=== PATIENT | male | born 1930 | race Caucasian/White ===

== ENCOUNTER 2019-01-15 16:34 | Inpatient (IN) | payer MEDICARE ==
[2019-01-15] MEDS ORDERED: SODIUM CHLORIDE 0.9% 1,000 ML IV STA ×3 (16:52→20:52)
[2019-01-15] MEDS ORDERED: SODIUM CHLORIDE 0.9% 500 ML 500 ML IV STA ×2 (16:52→20:52)
--- NOTE | 2019-01-15 16:53 | ED ---
Weakness HPI - General Chief complaint: Recheck/Abnormal Lab/Rx Stated complaint: hypotension Source: EMS, RN notes reviewed, old records reviewed Mode of arrival: EMS Limitations: altered mental status - History of Present Illness Initial comments: This is an 88-year-old male the ER for evaluation today is presenting for evaluation of decreased responsiveness weakness. Patient sent in by primary care for evaluation. Patient has complex and complicated recent medical history with severe deterioration. Patient is recently released from [facility] for rehabilitation. Patient also had recent significant inpatient hospitalization where he was also found to have urinary tract infection, hospitalization with extensive. Patient's poor historian history obtained from daughter and granddaughter who is at bedside MD Complaint: generalized weakness, lack of energy, difficulty walking -: days(s) Location: generalized Severity: severe Severity scale (1-10): 8 Quality: aching Consistency: constant Improves with: none Worsens with: none Context: new medication, recent illness, history of similar Associated Symptoms: confusion, nausea/vomiting - Related Data Home Medications Medication Instructions Recorded Confirmed Acetaminophen Tab [Tylenol Tab] 650 mg PO Q6H PRN 01/15/19 01/15/19 Atorvastatin [Lipitor] 40 mg PO HS 01/15/19 01/15/19 Lisinopril 20 mg PO DAILY 01/15/19 01/15/19 Magnesium Hydroxide [Milk of 2,400 mg PO HS PRN 01/15/19 01/15/19 Magnesia] Pantoprazole Sodium [Protonix] 40 mg PO DAILY 01/15/19 01/15/19 Pro-Stat Awc Liquid 30 ml PO BID 01/15/19 01/15/19 QUEtiapine [SEROquel] 25 mg PO HS 01/15/19 01/15/19 Tamsulosin [Flomax] 0.4 mg PO HS 01/15/19 01/15/19 amLODIPine [Norvasc] 5 mg PO DAILY 01/15/19 01/15/19 glipiZIDE [Glucotrol] 2.5 mg PO DAILY 01/15/19 01/15/19 Allergies Allergy/AdvReac Type Severity Reaction Status Date / Time No Known Allergies Allergy Verified 01/15/19 17:18 Review of Systems ROS Statement: Those systems with pertinent positive or pertinent negative responses have been documented in the HPI. ROS Other: All systems not noted in ROS Statement are negative. Past Medical History Past Medical History: Cancer, Diabetes Mellitus, Hyperlipidemia, Hypertension, Memory Impairment, Neurologic Disorder, Osteoarthritis (OA), Prostate Disorder Additional Past Medical History / Comment(s): brain cancer, hallucinations, heart murmur History of Any Multi-Drug Resistant Organisms: None Reported Past Surgical History: Orthopedic Surgery Additional Past Surgical History / Comment(s): right hip, left femur, face lift, Past Psychological History: No Psychological Hx Reported Smoking Status: Former smoker Past Alcohol Use History: None Reported Past Drug Use History: None Reported General Exam - General Exam Comments Initial Comments: Patient has bedsore that he didn't present with today. Limitations: altered mental status General appearance: alert, in no apparent distress Head exam: Present: atraumatic, normocephalic, normal inspection Eye exam: Present: normal appearance, PERRL, EOMI. Absent: scleral icterus, conjunctival injection, periorbital swelling ENT exam: Present: normal exam, mucous membranes moist Neck exam: Present: normal inspection. Absent: tenderness, meningismus, lymphadenopathy Respiratory exam: Present: normal lung sounds bilaterally. Absent: respiratory distress, wheezes, rales, rhonchi, stridor Cardiovascular Exam: Present: regular rate, normal rhythm, normal heart sounds. Absent: systolic murmur, diastolic murmur, rubs, gallop, clicks GI/Abdominal exam: Present: soft, normal bowel sounds. Absent: distended, tenderness, guarding, rebound, rigid Extremities exam: Present: normal inspection, full ROM, normal capillary refill, other (Lower great toe mild cellulitis likely gangrene). Absent: tenderness, pedal edema, joint swelling, calf tenderness Back exam: Present: normal inspection Neurological exam: Present: alert, oriented X3, CN II-XII intact Psychiatric exam: Present: normal affect, normal mood Skin exam: Present: warm, dry, intact, normal color. Absent: rash Course Vital Signs 01/15/19 01/15/19 01/15/19 16:43 17:35 19:00 Temperature 97.4 F L Pulse Rate 90 91 92 Respiratory 18 18 18 Rate Blood Pressure 93/74 119/40 93/38 O2 Sat by Pulse 100 97 97 Oximetry - Reevaluation(s) Reevaluation #1: 01/15/19 20:25 Medical records are reviewed, medical records requested from both [facility] as well as metal lodged Reevaluation #2: 01/15/19 20:25 Spoke with family that is at bedside, questions are answered. Patient is charlie wing improvement with hydration Reevaluation #3: 01/15/19 20:[address] of brain showing meningiomas on operable EKG Findings - EKG Comments: EKG Findings:: EKG shows sinus rhythm rate of 89, TN 160, QRS 160, QTc 450 Medical Decision Making - Medical Decision Making 88 male the ER for evaluation. Patient does say for evaluation regards to altered mental status, patient recently diagnosed urinary tract infection, patient also with diarrhea, family concerned for C. diff. Patient recently discharged [facility]. At this point we will await family member for further evaluation. And further history taking. EMS does provide history. Patient be admitted for significant IV antibiotics, patient is recent inpatient hospitalization likely bacteremia. - Lab Data Result diagrams: 01/15/19 16:45 01/15/19 16:45 Lab Results 01/15/19 01/15/19 01/15/19 Range/Units 16:45 16:45 16:45 WBC 19.9 H (3.8-10.6) k/uL RBC 2.74 L (4.30-5.90) m/uL Hgb 8.0 L (13.0-17.5) gm/dL Hct 24.4 L (39.0-53.0) % MCV 89.0 (80.0-100.0) fL MCH 29.3 (25.0-35.0) pg MCHC 32.9 (31.0-37.0) g/dL RDW 17.0 H (11.5-15.5) % Plt Count 280 (150-450) k/uL Neutrophils % 81 % Lymphocytes % 13 % Monocytes % 4 % Eosinophils % 0 % Basophils % 1 % Neutrophils # 16.2 H (1.3-7.7) k/uL Lymphocytes # 2.6 (1.0-4.8) k/uL Monocytes # 0.8 (0-1.0) k/uL Eosinophils # 0.1 (0-0.7) k/uL Basophils # 0.1 (0-0.2) k/uL Hypochromasia Slight Poikilocytosis Slight Anisocytosis Slight PT 11.4 (9.0-12.0) sec INR 1.1 (<1.2) APTT 24.7 (22.0-30.0) sec Sodium 141 (137-145) mmol/L Potassium 5.5 H (3.5-5.1) mmol/L Chloride 110 H (98-107) mmol/L Carbon Dioxide 19 L (22-30) mmol/L Anion Gap 12 mmol/L BUN 71 H (9-20) mg/dL Creatinine 2.59 H (0.66-1.25) mg/dL Est GFR (CKD-EPI)AfAm 25 (>60 ml/min/1.73 sqM) Est GFR (CKD-EPI)NonAf 21 (>60 ml/min/1.73 sqM) Glucose 79 (74-99) mg/dL Plasma Lactic Acid Vik (0.7-2.0) mmol/L Calcium 8.8 (8.4-10.2) mg/dL Phosphorus 3.9 (2.5-4.5) mg/dL Magnesium 1.7 (1.6-2.3) mg/dL Total Bilirubin 0.6 (0.2-1.3) mg/dL AST 45 (17-59) U/L ALT 31 (21-72) U/L Alkaline Phosphatase 153 H (38-126) U/L Troponin I (0.000-0.034) ng/mL Total Protein 5.1 L (6.3-8.2) g/dL Albumin 2.6 L (3.5-5.0) g/dL Urine Color Urine Appearance (Clear) Urine pH (5.0-8.0) Ur Specific [place] (1.001-1.035) Urine Protein (Negative) Urine Glucose (UA) (Negative) Urine Ketones (Negative) Urine Blood (Negative) Urine Nitrite (Negative) Urine Bilirubin (Negative) Urine Urobilinogen (<2.0) mg/dL Ur Leukocyte Esterase (Negative) Urine RBC (0-5) /hpf Urine WBC (0-5) /hpf Hyaline Casts (0-2) /lpf Urine Mucus (None) /hpf 01/15/19 01/15/19 01/15/19 Range/Units 16:45 16:45 16:45 WBC (3.8-10.6) k/uL RBC (4.30-5.90) m/uL Hgb (13.0-17.5) gm/dL Hct (39.0-53.0) % MCV (80.0-100.0) fL MCH (25.0-35.0) pg MCHC (31.0-37.0) g/dL RDW (11.5-15.5) % Plt Count (150-450) k/uL Neutrophils % % Lymphocytes % % Monocytes % % Eosinophils % % Basophils % % Neutrophils # (1.3-7.7) k/uL Lymphocytes # (1.0-4.8) k/uL Monocytes # (0-1.0) k/uL Eosinophils # (0-0.7) k/uL Basophils # (0-0.2) k/uL Hypochromasia Poikilocytosis Anisocytosis PT (9.0-12.0) sec INR (<1.2) APTT (22.0-30.0) sec Sodium (137-145) mmol/L Potassium (3.5-5.1) mmol/L Chloride (98-107) mmol/L Carbon Dioxide (22-30) mmol/L Anion Gap mmol/L BUN (9-20) mg/dL Creatinine (0.66-1.25) mg/dL Est GFR (CKD-EPI)AfAm (>60 ml/min/1.73 sqM) Est GFR (CKD-EPI)NonAf (>60 ml/min/1.73 sqM) Glucose (74-99) mg/dL Plasma Lactic Acid Vik 5.1 H* (0.7-2.0) mmol/L Calcium (8.4-10.2) mg/dL Phosphorus (2.5-4.5) mg/dL Magnesium (1.6-2.3) mg/dL Total Bilirubin (0.2-1.3) mg/dL AST (17-59) U/L ALT (21-72) U/L Alkaline Phosphatase (38-126) U/L Troponin I 0.018 (0.000-0.034) ng/mL Total Protein (6.3-8.2) g/dL Albumin (3.5-5.0) g/dL Urine Color Yellow Urine Appearance Cloudy (Clear) Urine pH 5.0 (5.0-8.0) Ur Specific [place] 1.019 (1.001-1.035) Urine Protein 1+ H (Negative) Urine Glucose (UA) Negative (Negative) Urine Ketones Negative (Negative) Urine Blood Trace H (Negative) Urine Nitrite Negative (Negative) Urine Bilirubin Negative (Negative) Urine Urobilinogen <2.0 (<2.0) mg/dL Ur Leukocyte Esterase Moderate H (Negative) Urine RBC 15 H (0-5) /hpf Urine WBC 17 H (0-5) /hpf Hyaline Casts 12 H (0-2) /lpf Urine Mucus Rare H (None) /hpf - Radiology Data Radiology results: report reviewed (CT of the brain is unchanged from prior per family, chest x-rays negative,), image reviewed Critical Care Time Critical Care Time: Yes Total Critical Care Time: 31 Disposition Clinical Impression: Sepsis, UTI (urinary tract infection), ARF (acute renal failure) Narrative: r/o Bacteremia Disposition: ADMITTED IP TO THIS HOSP Condition: Serious Is patient prescribed a controlled substance at d/c from ED?: No Referrals: Haim Bellamy MD [Primary Care Provider] - 1-2 days
[2019-01-15 17:11] LABS: Anisocytosis Slight; Basophils # (A) 0.1 k/uL (0-0.2); Basophils % (A) 1 %; Eosinophils # (A) 0.1 k/uL (0-0.7); Eosinophils % (A) 0 %; HCT 24.4 % (39.0-53.0); Hypochromasia Slight; Lymphocytes # (A) 2.6 k/uL (1.0-4.8); Lymphocytes % (A) 13 %; MCH 29.3 pg (25.0-35.0); MCHC 32.9 g/dL (31.0-37.0); Mean Platelet Volume 7.5; Monocytes # (A) 0.8 k/uL (0-1.0); Monocytes % (A) 4 %; Neutrophils # (A) 16.2 k/uL (1.3-7.7); Neutrophils % (A) 81 %; Platelet Count 280 k/uL (150-450); Poikilocytosis Slight; RBC 2.74 m/uL (4.30-5.90); WBC 19.9 k/uL (3.8-10.6)
[2019-01-15 17:17] LABS: INR 1.1 (<1.2); Partial Thromboplastin Time 24.7 sec (22.0-30.0); Prothrombin Time 11.4 sec (9.0-12.0)
[2019-01-15 17:19] LABS: Appearance,Urine Cloudy (Clear); Bilirubin,Urine Negative (Negative); Blood,Urine Trace (Negative); Color,Urine Yellow; Glucose,Urine (UA) Negative (Negative); Hyaline Casts,Urine 12 /lpf (0-2); Ketones,Urine Negative (Negative); Leukocyte Esterase,Urine Moderate (Negative); Mucus,Urine Rare /hpf; Nitrite,Urine Negative (Negative); Protein,Urine 1+ (Negative); RBC,Urine 15 /hpf (0-5); Specific Gravity,Urine 1.019 (1.001-1.035); Urobilinogen,Urine <2.0 mg/dL (<2.0)
[2019-01-15 17:31] LABS: Albumin 2.6 g/dL (3.5-5.0); Calcium 8.8 mg/dL (8.4-10.2); Magnesium 1.7 mg/dL (1.6-2.3); Phosphorus 3.9 mg/dL (2.5-4.5); Potassium 5.5 mmol/L (3.5-5.1); Total Bilirubin 0.6 mg/dL (0.2-1.3); Total Protein 5.1 g/dL (6.3-8.2)
--- NOTE | 2019-01-15 18:49 | CT ---
EXAMINATION TYPE: CT brain wo con DATE OF EXAM: 01/15/2019 COMPARISON: None HISTORY: Weakness and hypotension. CT DLP: 1129.4 mGycm Automated exposure control for dose reduction was used. FINDINGS: There is a suprasellar mass in the midline and towards the left side that measures 12 x 11 x 32 mm. T his has relatively high attenuation. There is very slight effacement of the third ventricle. There is mild enlargement of the ventricles. There is hypodensity in the parietal and occipital lobe white ma tter. There is cerebral cortical atrophy. There is no evidence of intracranial hemorrhage. The calvar ium is intact. IMPRESSION: LARGE ELONGATED MASS IN THE LEFT SUPRASELLAR REGION. 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 CONTRAST CT SCAN WOULD BE HELPFUL FOR FURTHER EVALUATION. CEREBRAL ATROPHY AND CHRONIC SMALL VESSEL ISCHEMIA.
--- NOTE | 2019-01-15 18:51 | XR ---
EXAMINATION TYPE: XR chest 2V DATE OF EXAM: 01/15/2019 COMPARISON: NONE HISTORY: Weakness TECHNIQUE: Frontal and lateral views of the chest are obtained. FINDINGS: Heart is normal. Lungs are clear of infiltrate. Thoracic aorta is atheromatous. There is n o pleural effusion. There is no heart failure. There is osteopenia. There is slight anterior wedging of one mid thoracic vertebra. IMPRESSION: No active cardiopulmonary disease. Normal heart.
[2019-01-15] MEDS ORDERED: VANCOMYCIN IV PER PHARMACY 1 EACH MISC MISCELLANE PRN (20:22)
[2019-01-15] MEDS ORDERED: VANCOMYCIN 1,250 MG in SODIUM CHLORIDE 0.9% 250 ML IVPB STA (20:28)
[2019-01-15] MEDS ORDERED: SODIUM CHLORIDE 0.9% 50 ML with HYDROCORTISONE SUCCINATE 500 MG IVPB SCH ×2 (20:30)
[2019-01-15] MEDS ORDERED: LACTATED RINGERS 1,000 ML IV SCH (20:30)
[2019-01-15] MEDS: SODIUM CHLORIDE 0.9% 500 ML 500 ML IV SCH (21:17)
--- NOTE | 2019-01-15 23:24 | ED ---
Medical Decision Making - Medical Decision Making Admitting physician Dr. Gaines asking if central line could be placed for hypotension. Patient was admitted to [facility] (formerly [facility]3] and is currently being transferred to an ICU admission. Blood pressure was in the 70 systolic. I placed a right IJ central line triple-lumen. - Lab Data Result diagrams: 01/15/19 16:45 01/15/19 16:45 Lab Results 01/15/19 01/15/19 01/15/19 Range/Units 16:45 16:45 16:45 WBC 19.9 H (3.8-10.6) k/uL RBC 2.74 L (4.30-5.90) m/uL Hgb 8.0 L (13.0-17.5) gm/dL Hct 24.4 L (39.0-53.0) % MCV 89.0 (80.0-100.0) fL MCH 29.3 (25.0-35.0) pg MCHC 32.9 (31.0-37.0) g/dL RDW 17.0 H (11.5-15.5) % Plt Count 280 (150-450) k/uL Neutrophils % 81 % Lymphocytes % 13 % Monocytes % 4 % Eosinophils % 0 % Basophils % 1 % Neutrophils # 16.2 H (1.3-7.7) k/uL Lymphocytes # 2.6 (1.0-4.8) k/uL Monocytes # 0.8 (0-1.0) k/uL Eosinophils # 0.1 (0-0.7) k/uL Basophils # 0.1 (0-0.2) k/uL Hypochromasia Slight Poikilocytosis Slight Anisocytosis Slight PT 11.4 (9.0-12.0) sec INR 1.1 (<1.2) APTT 24.7 (22.0-30.0) sec Sodium 141 (137-145) mmol/L Potassium 5.5 H (3.5-5.1) mmol/L Chloride 110 H (98-107) mmol/L Carbon Dioxide 19 L (22-30) mmol/L Anion Gap 12 mmol/L BUN 71 H (9-20) mg/dL Creatinine 2.59 H (0.66-1.25) mg/dL Est GFR (CKD-EPI)AfAm 25 (>60 ml/min/1.73 sqM) Est GFR (CKD-EPI)NonAf 21 (>60 ml/min/1.73 sqM) Glucose 79 (74-99) mg/dL Lactic Ac Sepsis Rflx Plasma Lactic Acid Vik (0.7-2.0) mmol/L Calcium 8.8 (8.4-10.2) mg/dL Phosphorus 3.9 (2.5-4.5) mg/dL Magnesium 1.7 (1.6-2.3) mg/dL Total Bilirubin 0.6 (0.2-1.3) mg/dL AST 45 (17-59) U/L ALT 31 (21-72) U/L Alkaline Phosphatase 153 H (38-126) U/L Troponin I (0.000-0.034) ng/mL Total Protein 5.1 L (6.3-8.2) g/dL Albumin 2.6 L (3.5-5.0) g/dL Urine Color Urine Appearance (Clear) Urine pH (5.0-8.0) Ur Specific [place] (1.001-1.035) Urine Protein (Negative) Urine Glucose (UA) (Negative) Urine Ketones (Negative) Urine Blood (Negative) Urine Nitrite (Negative) Urine Bilirubin (Negative) Urine Urobilinogen (<2.0) mg/dL Ur Leukocyte Esterase (Negative) Urine RBC (0-5) /hpf Urine WBC (0-5) /hpf Hyaline Casts (0-2) /lpf Urine Mucus (None) /hpf 01/15/19 01/15/19 01/15/19 Range/Units 16:45 16:45 16:45 WBC (3.8-10.6) k/uL RBC (4.30-5.90) m/uL Hgb (13.0-17.5) gm/dL Hct (39.0-53.0) % MCV (80.0-100.0) fL MCH (25.0-35.0) pg MCHC (31.0-37.0) g/dL RDW (11.5-15.5) % Plt Count (150-450) k/uL Neutrophils % % Lymphocytes % % Monocytes % % Eosinophils % % Basophils % % Neutrophils # (1.3-7.7) k/uL Lymphocytes # (1.0-4.8) k/uL Monocytes # (0-1.0) k/uL Eosinophils # (0-0.7) k/uL Basophils # (0-0.2) k/uL Hypochromasia Poikilocytosis Anisocytosis PT (9.0-12.0) sec INR (<1.2) APTT (22.0-30.0) sec Sodium (137-145) mmol/L Potassium (3.5-5.1) mmol/L Chloride (98-107) mmol/L Carbon Dioxide (22-30) mmol/L Anion Gap mmol/L BUN (9-20) mg/dL Creatinine (0.66-1.25) mg/dL Est GFR (CKD-EPI)AfAm (>60 ml/min/1.73 sqM) Est GFR (CKD-EPI)NonAf (>60 ml/min/1.73 sqM) Glucose (74-99) mg/dL Lactic Ac Sepsis Rflx Plasma Lactic Acid Vik 5.1 H* (0.7-2.0) mmol/L Calcium (8.4-10.2) mg/dL Phosphorus (2.5-4.5) mg/dL Magnesium (1.6-2.3) mg/dL Total Bilirubin (0.2-1.3) mg/dL AST (17-59) U/L ALT (21-72) U/L Alkaline Phosphatase (38-126) U/L Troponin I 0.018 (0.000-0.034) ng/mL Total Protein (6.3-8.2) g/dL Albumin (3.5-5.0) g/dL Urine Color Yellow Urine Appearance Cloudy (Clear) Urine pH 5.0 (5.0-8.0) Ur Specific [place] 1.019 (1.001-1.035) Urine Protein 1+ H (Negative) Urine Glucose (UA) Negative (Negative) Urine Ketones Negative (Negative) Urine Blood Trace H (Negative) Urine Nitrite Negative (Negative) Urine Bilirubin Negative (Negative) Urine Urobilinogen <2.0 (<2.0) mg/dL Ur Leukocyte Esterase Moderate H (Negative) Urine RBC 15 H (0-5) /hpf Urine WBC 17 H (0-5) /hpf Hyaline Casts 12 H (0-2) /lpf Urine Mucus Rare H (None) /hpf 05/21/19 05/21/19 Range/Units 17:41 21:22 WBC (3.8-10.6) k/uL RBC (4.30-5.90) m/uL Hgb (13.0-17.5) gm/dL Hct (39.0-53.0) % MCV (80.0-100.0) fL MCH (25.0-35.0) pg MCHC (31.0-37.0) g/dL RDW (11.5-15.5) % Plt Count (150-450) k/uL Neutrophils % % Lymphocytes % % Monocytes % % Eosinophils % % Basophils % % Neutrophils # (1.3-7.7) k/uL Lymphocytes # (1.0-4.8) k/uL Monocytes # (0-1.0) k/uL Eosinophils # (0-0.7) k/uL Basophils # (0-0.2) k/uL Hypochromasia Poikilocytosis Anisocytosis PT (9.0-12.0) sec INR (<1.2) APTT (22.0-30.0) sec Sodium (137-145) mmol/L Potassium (3.5-5.1) mmol/L Chloride (98-107) mmol/L Carbon Dioxide (22-30) mmol/L Anion Gap mmol/L BUN (9-20) mg/dL Creatinine (0.66-1.25) mg/dL Est GFR (CKD-EPI)AfAm (>60 ml/min/1.73 sqM) Est GFR (CKD-EPI)NonAf (>60 ml/min/1.73 sqM) Glucose (74-99) mg/dL Lactic Ac Sepsis Rflx Y Plasma Lactic Acid Vik 2.2 H* (0.7-2.0) mmol/L Calcium (8.4-10.2) mg/dL Phosphorus (2.5-4.5) mg/dL Magnesium (1.6-2.3) mg/dL Total Bilirubin (0.2-1.3) mg/dL AST (17-59) U/L ALT (21-72) U/L Alkaline Phosphatase (38-126) U/L Troponin I (0.000-0.034) ng/mL Total Protein (6.3-8.2) g/dL Albumin (3.5-5.0) g/dL Urine Color Urine Appearance (Clear) Urine pH (5.0-8.0) Ur Specific [place] (1.001-1.035) Urine Protein (Negative) Urine Glucose (UA) (Negative) Urine Ketones (Negative) Urine Blood (Negative) Urine Nitrite (Negative) Urine Bilirubin (Negative) Urine Urobilinogen (<2.0) mg/dL Ur Leukocyte Esterase (Negative) Urine RBC (0-5) /hpf Urine WBC (0-5) /hpf Hyaline Casts (0-2) /lpf Urine Mucus (None) /hpf Disposition Clinical Impression: Sepsis, UTI (urinary tract infection), ARF (acute renal failure) Disposition: ADMITTED IP TO THIS [facility] Condition: Serious Procedures - Central Line Placement Right IJ Consent Obtained: emergent situation Patient Placed on Monitor/Pulse Ox: Yes Prep: mask, gown, gloves Central Line Prep: Chlorhexidine scrub Local Anesthesia Used: Lidocaine 1% Amount of Anesthesia Used (mls): 3 Ultrasound Used for Placement: Yes Central Line Lumen Inserted: triple Bloods Obtained for Lab: Yes Central Line Position: good blood return, all ports aspirated, flushed, capped, sutured in place with nylon Dressing Applied: Tegaderm Post Procedure X-Ray: tip of catheter in good position Patient Tolerated Procedure: well Complications: none
--- NOTE | 2019-01-15 23:35 | XR ---
EXAM: XR Chest, 1 View CLINICAL HISTORY: Central line placement TECHNIQUE: Frontal view of the chest. COMPARISON: No relevant prior studies available. FINDINGS: Lungs: Airspace opacities seen within the latrice, left greater than right. Pleural space: Unremarkable. No pneumothorax. Heart: Unremarkable. No cardiomegaly. Mediastinum: Unremarkable. Bones/joints: Unremarkable. Tubes, lines and devices: Right IJ central venous catheter with tip in the right atrium. Consider retraction by 3 cm. IMPRESSION: 1. Right IJ central venous catheter with tip in the right atrium. Consider retraction by 3 cm. 2. Airspace opacities seen within the latrice, left greater than right.
[2019-01-15] MEDS ORDERED: SODIUM POLYSTYRENE SULFONATE 15 GM/60 ML BOTTLE PO STA (23:55)
[2019-01-15] MEDS ORDERED: CALCIUM GLUCONATE 1 GM in SODIUM CHLORIDE 0.9% 100 ML IVPB ONE (23:59)
--- NOTE | 2019-01-16 00:21 | P.HPIM ---
History of Present Illness H&P Date: 01/15/19 The patient is an 88 yo M with a PMH of HTN, HLD, DM, brain tumor (dx 2014), and dementia who was sent to the ED from the PMD's office due to lethargy and decreased responsiveness. History obtained from grand-daughter (Laure Martinez [phone]) who is the patient's legal guardian. 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 He was hospitalized for 8 days and was discharged to [facility] for rehabilitation where he spent 6 weeks. During his stay, as per the grand- daughter, the patient developed bed-sores and had a power inserted after which he developed a UTI. He was thereby prescribed Bactrim 5 days ago and was discharged from [facility] on 01/14/19. Upon arriving at home, his granddaughter noted that the patient was less responsive and weak and had developed diarrhea. She subsequently took him to his PMD's office from where he was referred to the ED. The patient seen in the ED. He is answering basic questions though is a very poor historian. He is denying any complaints. He was noted to have BP 93/74 on admission w/ pulse 90, SpO2 98% on RA, and afebrile at 97.4 degrees. He underwent an extensive evaluation in the ED w/ WBC count 19.9, Hgb 8, lactic acid 5.1, K 5.5, CO2 19, Cr 2.59, UA consistent w/ infection, Troponin 0.018, and alk phos 153. CT Head revealed a supracellar mass, very likely a meningioma; CXR unremarkable; w/ EKG showing sinus rhythm with ILBB and sinus arrhythmia. A R IJ central line and the patient is being admitted to the medicine ICU for further management. Review of Systems Pertinent positives and negatives as discussed in HPI, a complete review of systems was performed and all other systems are negative. Past Medical History Past Medical History: Cancer, Diabetes Mellitus, Hyperlipidemia, Hypertension, Memory Impairment, Neurologic Disorder, Osteoarthritis (OA), Prostate Disorder Additional Past Medical History / Comment(s): brain cancer, hallucinations, heart murmur History of Any Multi-Drug Resistant Organisms: None Reported Past Surgical History: Orthopedic Surgery Additional Past Surgical History / Comment(s): right hip, left femur, face lift, Past Psychological History: No Psychological Hx Reported Smoking Status: Former smoker Past Alcohol Use History: None Reported Past Drug Use History: None Reported Medications and Allergies Home Medications Medication Instructions Recorded Confirmed Type Acetaminophen Tab [Tylenol Tab] 650 mg PO Q6H PRN 01/15/19 01/15/19 History Atorvastatin [Lipitor] 40 mg PO HS 01/15/19 01/15/19 History Lisinopril 20 mg PO DAILY 01/15/19 01/15/19 History Magnesium Hydroxide [Milk of 2,400 mg PO HS PRN 01/15/19 01/15/19 History Magnesia] Pantoprazole Sodium [Protonix] 40 mg PO DAILY 01/15/19 01/15/19 History Pro-Stat Awc Liquid 30 ml PO BID 01/15/19 01/15/19 History QUEtiapine [SEROquel] 25 mg PO HS 01/15/19 01/15/19 History Tamsulosin [Flomax] 0.4 mg PO HS 01/15/19 01/15/19 History amLODIPine [Norvasc] 5 mg PO DAILY 01/15/19 01/15/19 History glipiZIDE [Glucotrol] 2.5 mg PO DAILY 01/15/19 01/15/19 History Allergies Allergy/AdvReac Type Severity Reaction Status Date / Time No Known Allergies Allergy Verified 01/15/19 17:18 Physical Exam Vitals: Vital Signs Temp Pulse Resp BP Pulse Ox 01/15/19 22:22 87/33 01/15/19 21:37 84 18 89/42 98 01/15/19 19:00 92 18 93/38 97 01/15/19 17:35 91 18 119/40 97 01/15/19 16:43 97.4 F L 90 18 93/74 100 Intake and Output 01/15/19 01/15/19 01/16/19 14:59 22:59 06:59 Other: Weight 72.121 kg General: elderly ill appearing M, no distress, appears at stated age, normal weight Derm: L great toe likely gangrene, warm, dry Head: atraumatic, normocephalic, symmetric Eyes: EOMI, no lid lag, anicteric sclera, pupils equal round reactive to light ENT: Nose and ears atraumatic, no thrush, no pharyngeal erythema Neck: No thyromegaly, no cervical lymphadenopathy, trachea midline, supple Mouth: no lip lesion, mucus membranes moist Cardiovascular: S1S2 reg, systolic murmur, positive posterior tibial pulse bila teral, no edema, capillary refill less than 2 seconds Lungs: CTA bilateral, no rhonchi, no rales , no accessory muscle use Abdominal: soft, nontender to palpation, no guarding, no appreciable organom egaly, normal bowel sounds Ext: no gross muscle atrophy, muscle strength 3 out of 5 in all 4 extremities grossly, no contractures, Neuro: Not following all commands, examination limited Psych: Awake, not oriented to self, place, or time Results CBC & Chem 7: 01/15/19 16:45 01/15/19 16:45 Labs: Abnormal Lab Results - Last 24 Hours (Table) 01/15/19 01/15/19 01/15/19 Range/Units 16:45 16:45 16:45 WBC 19.9 H (3.8-10.6) k/uL RBC 2.74 L (4.30-5.90) m/uL Hgb 8.0 L (13.0-17.5) gm/dL Hct 24.4 L (39.0-53.0) % RDW 17.0 H (11.5-15.5) % Neutrophils # 16.2 H (1.3-7.7) k/uL Potassium 5.5 H (3.5-5.1) mmol/L Chloride 110 H (98-107) mmol/L Carbon Dioxide 19 L (22-30) mmol/L BUN 71 H (9-20) mg/dL Creatinine 2.59 H (0.66-1.25) mg/dL Plasma Lactic Acid Vik 5.1 H* (0.7-2.0) mmol/L Alkaline Phosphatase 153 H (38-126) U/L Total Protein 5.1 L (6.3-8.2) g/dL Albumin 2.6 L (3.5-5.0) g/dL Urine Protein (Negative) Urine Blood (Negative) Ur Leukocyte Esterase (Negative) Urine RBC (0-5) /hpf Urine WBC (0-5) /hpf Hyaline Casts (0-2) /lpf Urine Mucus (None) /hpf 01/15/19 01/15/19 Range/Units 16:45 21:22 WBC (3.8-10.6) k/uL RBC (4.30-5.90) m/uL Hgb (13.0-17.5) gm/dL Hct (39.0-53.0) % RDW (11.5-15.5) % Neutrophils # (1.3-7.7) k/uL Potassium (3.5-5.1) mmol/L Chloride (98-107) mmol/L Carbon Dioxide (22-30) mmol/L BUN (9-20) mg/dL Creatinine (0.66-1.25) mg/dL Plasma Lactic Acid Vik 2.2 H* (0.7-2.0) mmol/L Alkaline Phosphatase (38-126) U/L Total Protein (6.3-8.2) g/dL Albumin (3.5-5.0) g/dL Urine Protein 1+ H (Negative) Urine Blood Trace H (Negative) Ur Leukocyte Esterase Moderate H (Negative) Urine RBC 15 H (0-5) /hpf Urine WBC 17 H (0-5) /hpf Hyaline Casts 12 H (0-2) /lpf Urine Mucus Rare H (None) /hpf Assessment and Plan Plan: Severe sepsis secondary to UTI vs C. diff -S/p 4 L NS, c/w 100 cc/hr -Lactic acid improved -C/w Vancomycin and Zosyn -F/u blood and urine cultures -F/u C diff testing MACO vs CKD -Monitor BMP Metabolic acidosis, in setting of severe sepsis -Monitor for now -C/w above treatment Hyperkalemia -S/p Kayexalate and Calcium gluconate -Monitor BMP Brain tumor (possible meningioma -- guardian states she was told it was a slow growing tumor) -Patient evaluated by Neurosurgeons at [facility] as per guardian. She reports that they are planning on putting a FORESTRY AIDE-shunt for hydrocephalus -Dx 4 years ago -Obtain records Normocytic anemia -Will monitor for now HTN -Hold antihypertensives in setting of septic shock Diabetes Mellitus -DEMOND with Blood glucose monitoring HLD -Resume home meds DVT prophylaxis -Lovenox The patient is admitted with an anticipated greater than 2 midnight stay for evaluation of severe sepsis. CODE STATUS:Full Code Discussed with: Patient's granddaughter, patient's brother Anticipated discharge date: 01/20/[address]: Home A total of 60 minutes was spent on the care of this complex patient more than 50% of the time was spent in counseling and care coordination.
[2019-01-16 00:25] LABS: Glucose,Whole Blood 71 mg/dL (75-99)
[2019-01-16] MEDS ORDERED: NALOXONE 0.4 MG/ML 1 ML VIAL IV PRN (00:54)
[2019-01-16] MEDS: NOREPINEPHRINE 4 MG in SODIUM CHLORIDE 0.9% 250 ML IV SCH ×3 (01:10→20:32)
[2019-01-16] MEDS: PIPERACILLIN-TAZOBACTAM 3.375 GM in SODIUM CHLORIDE 0.9% 100 ML IVPB SCH ×3 (02:54→21:55)
[2019-01-16 03:23] LABS: Glucose,Whole Blood 76 mg/dL (75-99)
[2019-01-16 04:18] LABS: Albumin 2.2 g/dL (3.5-5.0); Magnesium 1.5 mg/dL (1.6-2.3); Phosphorus 3.2 mg/dL (2.5-4.5); Potassium 4.7 mmol/L (3.5-5.1); Total Bilirubin 0.3 mg/dL (0.2-1.3); Total Protein 4.6 g/dL (6.3-8.2)
[2019-01-16 04:23] LABS: Anisocytosis Slight; Basophils # (A) 0.1 k/uL (0-0.2); Basophils % (A) 1 %; Eosinophils # (A) 0.1 k/uL (0-0.7); Eosinophils % (A) 1 %; HCT 21.1 % (39.0-53.0); Hypochromasia Slight; Lymphocytes # (A) 1.7 k/uL (1.0-4.8); Lymphocytes % (A) 13 %; MCH 29.9 pg (25.0-35.0); MCV 90.5 fL (80.0-100.0); Mean Platelet Volume 7.5; Monocytes # (A) 0.6 k/uL (0-1.0); Monocytes % (A) 5 %; Neutrophils # (A) 10.6 k/uL (1.3-7.7); Neutrophils % (A) 80 %; Platelet Count 209 k/uL (150-450); Poikilocytosis Slight; RBC 2.33 m/uL (4.30-5.90); WBC 13.3 k/uL (3.8-10.6)
[2019-01-16 05:03] LABS: Glucose,Whole Blood 75 mg/dL (75-99)
[2019-01-16] MEDS: INSULIN ASPART (NovoLOG) 100 UNIT/ML VIAL SQ SCH ×4 (07:27→21:39)
[2019-01-16 07:29] LABS: Glucose,Whole Blood 80 mg/dL (75-99)
[2019-01-16] MEDS ORDERED: ENOXAPARIN 40 MG/0.4 ML SYRINGE SQ SCH (09:00)
--- NOTE | 2019-01-16 10:07 | P.NPCON ---
History of Present Illness - Reason for Consult acute renal failure - History of Present Illness Reason for consultation: Acute kidney injury History of present illness: Patient is a 88-year-old male seen in renal consultation for acute kidney injury. Patient's creatinine on admission was 2.59 and is down to 1.86 today. Unclear as to what his baseline renal function is. Patient was noted to be quite hypotensive on admission with systolic blood pressure in the 70s to 80s. Patient received nearly 5 L of IV fluids and is now maintained on a sodium bicarbonate drip. He is nonoliguric. Patient has history of dementia and is not a reliable historian. He is also noted to have a left sided brain mass with concern for meningioma. Patient was brought from an extended care facility due to generalized weakness. Patient was recently treated for UTI and had a prolonged hospitalization during that time. He's been getting progressively weaker and also difficulty walking and was subsequently brought to the hospital. Cultures have been negative so far. He is currently on 0.1 g a kilogram of Levophed. He has history of diabetes mellitus. Vital signs are stable. Currently on Levophed. General: The patient appeared well nourished and normally developed. HEENT: Head exam is unremarkable. Neck is without jugular venous distension. LUNGS: Breath sounds decreased. HEART: Rate and Rhythm are regular. First and second heart sounds normal. No murmurs, rubs or gallops. ABDOMEN: Abdominal exam reveals normal bowel sounds. Non-tender and non- distended. EXTREMITITES: No clubbing, cyanosis, or edema. Past Medical History Past Medical History: Cancer, Diabetes Mellitus, Hyperlipidemia, Hypertension, Memory Impairment, Neurologic Disorder, Osteoarthritis (OA), Prostate Disorder Additional Past Medical History / Comment(s): brain tumor, hallucinations, heart murmur History of Any Multi-Drug Resistant Organisms: None Reported Past Surgical History: Orthopedic Surgery Additional Past Surgical History / Comment(s): right hip, left femur, face lift, Past Anesthesia/Blood Transfusion Reactions: No Reported Reaction Past Psychological History: Anxiety Additional Psychological History / Comment(s): Paranoia. Halluncinations Smoking Status: Former smoker Past Alcohol Use History: None Reported Past Drug Use History: None Reported Medications and Allergies Home Medications Medication Instructions Recorded Confirmed Type Acetaminophen Tab [Tylenol Tab] 650 mg PO Q6H PRN 01/15/19 01/15/19 History Atorvastatin [Lipitor] 40 mg PO HS 01/15/19 01/15/19 History Lisinopril 20 mg PO DAILY 01/15/19 01/15/19 History Magnesium Hydroxide [Milk of 2,400 mg PO HS PRN 01/15/19 01/15/19 History Magnesia] Pantoprazole Sodium [Protonix] 40 mg PO DAILY 01/15/19 01/15/19 History Pro-Stat Awc Liquid 30 ml PO BID 01/15/19 01/15/19 History QUEtiapine [SEROquel] 25 mg PO HS 01/15/19 01/15/19 History Tamsulosin [Flomax] 0.4 mg PO HS 01/15/19 01/15/19 History amLODIPine [Norvasc] 5 mg PO DAILY 01/15/19 01/15/19 History glipiZIDE [Glucotrol] 2.5 mg PO DAILY 01/15/19 01/15/19 History Allergies Allergy/AdvReac Type Severity Reaction Status Date / Time No Known Allergies Allergy Verified 01/15/19 17:18 Physical Exam Vitals: Vital Signs Temp Pulse Pulse Resp BP BP Pulse Ox 01/16/19 09:15 80 21 102/57 96 01/16/19 09:00 78 21 121/62 87 L 01/16/19 08:45 84 22 110/54 97 01/16/19 08:30 69 5 L 109/63 97 01/16/19 08:15 76 16 110/55 95 01/16/19 08:00 97.7 F 78 21 110/54 96 01/16/19 07:45 77 18 109/53 97 01/16/19 07:00 80 14 109/97 96 01/16/19 06:45 79 9 L 102/50 96 01/16/19 06:30 75 16 65/55 96 01/16/19 06:15 76 10 L 92/52 94 L 01/16/19 06:00 79 17 95/44 93 L 01/16/19 05:45 75 15 95/44 93 L 01/16/19 05:30 74 17 93/44 94 L 01/16/19 05:15 75 16 97/47 94 L 01/16/19 05:00 76 16 97/48 94 L 01/16/19 04:45 76 17 85/46 95 01/16/19 04:30 79 18 79/45 93 L 01/16/19 04:15 85 19 84/52 95 01/16/19 04:00 89 17 93/65 96 01/16/19 03:45 86 20 81/50 97 01/16/19 03:15 80 21 81/59 95 01/16/19 03:10 97.5 F L 83 20 81/59 97 01/16/19 03:00 80 18 85/44 96 01/16/19 02:30 86 10 L 94/74 97 01/16/19 02:00 84 12 93/64 96 01/16/19 01:30 75 17 92/61 96 01/16/19 01:00 76 12 93/41 98 01/16/19 00:57 77 17 82/55 95 01/16/19 00:50 76 33 H 79/53 95 01/16/19 00:40 77 16 72/40 95 01/16/19 00:30 78 26 H 76/43 95 01/16/19 00:20 96.9 F L 80 17 81/46 96 01/15/19 23:50 98 F 80 16 104/93 100 01/15/19 23:11 77 20 71/41 100 01/15/19 22:22 87/33 01/15/19 21:37 84 18 89/42 98 01/15/19 19:00 92 18 93/38 97 01/15/19 17:35 91 18 119/40 97 01/15/19 16:43 97.4 F L 90 18 93/74 100 Intake and Output 01/15/19 01/16/19 01/16/19 22:59 06:59 14:59 Intake Total 5136.893 30 Output Total 835 225 Balance 4301.893 -195 Intake: IV 20 30 0.9 20 30 Intake, IV Titration 4776.893 Amount Calcium Gluconate 1 gm In 100 Sodium Chloride 0.9% 100 ml @ 100 mls/hr IVPB ONCE ONE Rx#:[id number] Norepinephrine 4 mg In 76.893 Sodium Chloride 0.9% 250 ml @ 0.05 MCG/KG/MIN 13. 739 mls/hr IV .[id number] [facility] Rx#:[id number] Piperacillin-Tazobactam 3 100 .375 gm In Sodium Chloride 0.9% 100 ml @ 25 mls/hr IVPB Q12H [facility] Rx# :[id number] Sodium Chloride 0.9% 1, 1200 000 ml @ 150 mls/hr IV . Q6H40M [facility] Rx#:[id number] Sodium Chloride 0.9% 1, 1000 000 ml @ 999 mls/hr IV . Q1H1M [facility] Rx#:[id number] Sodium Chloride 0.9% 1, 1000 000 ml @ 999 mls/hr IV . Q1H1M [facility] Rx#:[id number] Sodium Chloride 0.9% 500 500 ml 500 ml @ 999 mls/hr IV .Q31M [facility] Rx#:[id number] Sodium Chloride 0.9% 500 500 ml 500 ml @ 999 mls/hr IV .Q31M [facility] Rx#:[id number] Vancomycin 1,250 mg In 250 Sodium Chloride 0.9% 250 ml @ 125 mls/hr IVPB ONCE ONE Rx#:[id number] cefTRIAXone 1 gm In 50 Sodium Chloride 0.9% 50 ml @ 100 mls/hr IVPB Q24H [facility] Rx#:[id number] Oral 340 Output: Urine 835 225 Other: Voiding Method Indwelling Catheter Weight 72.121 kg 72.12 kg Results - Lab Results Most recent lab results Calcium 8.0 mg/dL (8.4-10.2) L 01/16/19 03:43 Phosphorus 3.2 mg/dL (2.5-4.5) 01/16/19 03:43 Magnesium 1.5 mg/dL (1.6-2.3) L 01/16/19 03:43 01/16/19 03:43 01/16/19 03:43 Assessment and Plan Plan: Assessment: 1. Acute kidney injury mostly prerenal secondary to hypotension/septic shock. Creatinine was 2.59 on admission and is 1.86 today. Unknown baseline renal function. 2. Metabolic acidosis secondary to acute kidney injury and IV fluids. 3. Hyperkalemia secondary to acute kidney injury and metabolic acidosis. Raiza ent was also on lisinopril outpatient. 4. Diabetes mellitus. 5. Anemia. Rule out iron deficiency. No active bleeding. 6. Septic shock . Source likely being UTI. Currently on Levophed. 7. Left brain mass. Plan: Maintain isotonic sodium bicarbonate drip at 75 mL an hour. Follow-up cultures. Check iron studies. Hold antihypertensives. Continue to monitor renal function and urine output. Check renal uls. Thank you for the consultation. I will continue to follow patient with you during his hospital stay.
[2019-01-16] MEDS: DEXTROSE 5% IN WATER 1,000 ML with SODIUM BICARB (1 MEQ/ML) 150 ML IV SCH ×2 (10:21→17:14)
[2019-01-16] MEDS: BACITRACIN 500 UNIT/GM OINT 28.4 GM TUBE TOPICAL SCH ×2 (10:21→20:28)
[2019-01-16] MEDS: PANTOPRAZOLE 40 MG/10 ML VIAL IV SCH (10:21)
[2019-01-16] MEDS ORDERED: VANCOMYCIN 1,250 MG in SODIUM CHLORIDE 0.9% 250 ML IVPB ONE (12:00)
[2019-01-16 12:09] LABS: Glucose,Whole Blood 114 mg/dL (75-99)
[2019-01-16 12:22] LABS: Glucose,Whole Blood 106 mg/dL (75-99)
[2019-01-16 13:33] LABS: Calcium 8.1 mg/dL (8.4-10.2); Potassium 4.5 mmol/L (3.5-5.1)
--- NOTE | 2019-01-16 14:29 | US ---
EXAMINATION TYPE: US kidneys/renal and bladder DATE OF EXAM: 01/16/2019 COMPARISON: NONE CLINICAL HISTORY: maco. ICU, MACO, bladder cath EXAM MEASUREMENTS: Right Kidney: 11.1 x 5.4 x 5.6 cm Left Kidney: 9.8 x 4.5 x 5.8 cm Right Kidney: wnl Left Kidney: appears smaller in size compared to contralateral kidney Bladder: power visualized, wall - 1.1 cm Bilateral Jets seen: not visualized due to power Cortical medullary differentiation is maintained bilaterally. There is no hydronephrosis or pathologi c calcification. No evident cortical mass. IMPRESSION: Urinary bladder is catheterized. No hydronephrosis.
--- NOTE | 2019-01-16 14:44 | P.PN ---
Subjective Progress Note Date: 01/16/19 Principal diagnosis: lethargy Patient is an 88-year-old male past medical history of brain tumor, diabetes, dyslipidemia, hypertension, and dementia who was sent to the ER from Dr. Bellamy's office due to lethargy and decreased responsiveness. Patient was admitted to the [facility] in November 2018 for ataxia and fall and he was found to have a meningioma with hydrocephalus. He has recently been at [facility] where he spent 6 weeks for rehab. Apparently he developed bedsores and had a urinary tract infection, he had a Scott catheter which has si nce been discontinued, and he was discharged home on 01/14 with Bactrim. Granddaughter noticed that he was increasingly sleepy, weak, and developed diarrhea. She took him to Dr. Bellamy's office and subsequently here. In the ER he underwent an extensive evaluation. His don't have a low blood pressure of 93/74 on admission but his vital signs were otherwise stable. Initial laboratory analysis showed white blood cell count of 19.9, hemoglobin 8, lactic acid 5.1, potassium 5.5, CO2 19, and creatinine 2.59. UA showed possible infection is currently undergoing treatment. Head CT showed a suprasellar mass but no signs of hydrocephalus. Chest x-ray was unremarkable. Patient remained hypotensive despite IV fluid administration and subsequently a right IJ central line was placed. Patient was started on norepinephrine and has subsequently been admitted to the ICU. Patient seen and examined at bedside. He was acutely confused and alert to self only. No family present at bedside Per nursing norepinephrine requirements decreasing overnight. Patient confused but redirectable. Objective - Vital Signs Vital signs: Vital Signs Temp 97.5 F L 01/16/19 03:10 Pulse 80 01/16/19 07:00 Resp 14 01/16/19 07:00 BP 109/97 01/16/19 07:00 Pulse Ox 96 01/16/19 07:00 Intake & Output 01/15/19 01/16/19 01/16/19 18:59 06:59 18:59 Intake Total 5136.893 10 Output Total 835 Balance 4301.893 10 Weight 72.121 kg 72.12 kg Intake: IV 20 10 0.9 20 10 Intake, IV Titration 4776.893 Amount Calcium Gluconate 1 gm In 100 Sodium Chloride 0.9% 100 ml @ 100 mls/hr IVPB ONCE ONE Rx#:[id number] Norepinephrine 4 mg In 76.893 Sodium Chloride 0.9% 250 ml @ 0.05 MCG/KG/MIN 13. 739 mls/hr IV .[id number] [facility] Rx#:[id number] Piperacillin-Tazobactam 3 100 .375 gm In Sodium Chloride 0.9% 100 ml @ 25 mls/hr IVPB Q12H [facility] Rx# :[id number] Sodium Chloride 0.9% 1, 1200 000 ml @ 150 mls/hr IV . Q6H40M [facility] Rx#:[id number] Sodium Chloride 0.9% 1, 1000 000 ml @ 999 mls/hr IV . Q1H1M [facility] Rx#:[id number] Sodium Chloride 0.9% 1, 1000 000 ml @ 999 mls/hr IV . Q1H1M [facility] Rx#:[id number] Sodium Chloride 0.9% 500 500 ml 500 ml @ 999 mls/hr IV .Q31M [facility] Rx#:[id number] Sodium Chloride 0.9% 500 500 ml 500 ml @ 999 mls/hr IV .Q31M [facility] Rx#:[id number] Vancomycin 1,250 mg In 250 Sodium Chloride 0.9% 250 ml @ 125 mls/hr IVPB ONCE ONE Rx#:[id number] cefTRIAXone 1 gm In 50 Sodium Chloride 0.9% 50 ml @ 100 mls/hr IVPB Q24H [facility] Rx#:[id number] Oral 340 Output: Urine 835 Other: Voiding Method Indwelling Catheter - Exam General: non toxic, no distress, appears at stated age Derm: b/l ulcers on great toes, warm, dry Head: atraumatic, normocephalic, symmetric Eyes: EOMI, no lid lag, anicteric sclera Mouth: no lip lesion, mucus membranes moist Cardiovascular: S1S2 reg, no murmur, positive posterior tibial pulse bilateral, Lungs: decreased bs bilateral, no rhonchi, no rales , no accessory muscle use Abdominal: soft, nontender to palpation, no guarding, no appreciable organomegaly Ext: no gross muscle atrophy, no edema, no contractures Neuro: CN II-XI grossly intact, no focal neuro deficits Psych: awake confused, appears slightly anxious - Labs CBC & Chem 7: 01/16/19 03:43 01/16/19 13:10 Labs: Abnormal Lab Results - Last 24 Hours (Table) 01/15/19 01/15/19 01/15/19 Range/Units 16:45 16:45 16:45 WBC 19.9 H (3.8-10.6) k/uL RBC 2.74 L (4.30-5.90) m/uL Hgb 8.0 L (13.0-17.5) gm/dL Hct 24.4 L (39.0-53.0) % RDW 17.0 H (11.5-15.5) % Neutrophils # 16.2 H (1.3-7.7) k/uL Potassium 5.5 H (3.5-5.1) mmol/L Chloride 110 H (98-107) mmol/L Carbon Dioxide 19 L (22-30) mmol/L BUN 71 H (9-20) mg/dL Creatinine 2.59 H (0.66-1.25) mg/dL Glucose (74-99) mg/dL POC Glucose (mg/dL) (75-99) mg/dL Plasma Lactic Acid Vik 5.1 H* (0.7-2.0) mmol/L Calcium (8.4-10.2) mg/dL Magnesium (1.6-2.3) mg/dL Alkaline Phosphatase 153 H (38-126) U/L Total Protein 5.1 L (6.3-8.2) g/dL Albumin 2.6 L (3.5-5.0) g/dL Urine Protein (Negative) Urine Blood (Negative) Ur Leukocyte Esterase (Negative) Urine RBC (0-5) /hpf Urine WBC (0-5) /hpf Hyaline Casts (0-2) /lpf Urine Mucus (None) /hpf 01/15/19 01/15/19 01/16/19 Range/Units 16:45 21:22 00:13 WBC (3.8-10.6) k/uL RBC (4.30-5.90) m/uL Hgb (13.0-17.5) gm/dL Hct (39.0-53.0) % RDW (11.5-15.5) % Neutrophils # (1.3-7.7) k/uL Potassium (3.5-5.1) mmol/L Chloride (98-107) mmol/L Carbon Dioxide (22-30) mmol/L BUN (9-20) mg/dL Creatinine (0.66-1.25) mg/dL Glucose (74-99) mg/dL POC Glucose (mg/dL) 71 L (75-99) mg/dL Plasma Lactic Acid Vik 2.2 H* (0.7-2.0) mmol/L Calcium (8.4-10.2) mg/dL Magnesium (1.6-2.3) mg/dL Alkaline Phosphatase (38-126) U/L Total Protein (6.3-8.2) g/dL Albumin (3.5-5.0) g/dL Urine Protein 1+ H (Negative) Urine Blood Trace H (Negative) Ur Leukocyte Esterase Moderate H (Negative) Urine RBC 15 H (0-5) /hpf Urine WBC 17 H (0-5) /hpf Hyaline Casts 12 H (0-2) /lpf Urine Mucus Rare H (None) /hpf 01/16/19 01/16/19 Range/Units 03:43 03:43 WBC 13.3 H (3.8-10.6) k/uL RBC 2.33 L (4.30-5.90) m/uL Hgb 7.0 L (13.0-17.5) gm/dL Hct 21.1 L (39.0-53.0) % RDW 17.0 H (11.5-15.5) % Neutrophils # 10.6 H (1.3-7.7) k/uL Potassium (3.5-5.1) mmol/L Chloride 116 H (98-107) mmol/L Carbon Dioxide 16 L (22-30) mmol/L BUN 55 H (9-20) mg/dL Creatinine 1.86 H (0.66-1.25) mg/dL Glucose 56 L (74-99) mg/dL POC Glucose (mg/dL) (75-99) mg/dL Plasma Lactic Acid Vik (0.7-2.0) mmol/L Calcium 8.0 L (8.4-10.2) mg/dL Magnesium 1.5 L (1.6-2.3) mg/dL Alkaline Phosphatase 132 H (38-126) U/L Total Protein 4.6 L (6.3-8.2) g/dL Albumin 2.2 L (3.5-5.0) g/dL Urine Protein (Negative) Urine Blood (Negative) Ur Leukocyte Esterase (Negative) Urine RBC (0-5) /hpf Urine WBC (0-5) /hpf Hyaline Casts (0-2) /lpf Urine Mucus (None) /hpf Microbiology - Last 24 Hours (Table) 01/15/19 16:45 Urine Culture - Preliminary Urine,Voided Assessment and Plan Assessment: UTI versus C. diff with septic shock -Status post 4 L of normal saline -Urine culture pending, blood culture pending -C. diff pending -Continue with oral vancomycin and IV Zosyn -Wean norepinephrine as able, lisinopril and Norvasc on hold -Stop IV Solu-Medrol -Critical care recommendations Toxic metabolic encephalopathy with underlying dementia -Treatment of infection above -Supportive care -Frequent reorientation Acute kidney injury with hyperkalemia and anion gap metabolic acidosis -Converted to D5W with 3 A of bicarb -Avoid additional nephrotoxic agents -Nephro recommendations appreciated -Follow renal profile Hypoglycemia with history of diabetes mellitus -Changed to dextrose containing IV fluids -Continue to follow blood sugars -Likely related to glipizide to sit still be in his system will continue to hold this Brain lesion -Records requested from [facility] -Further recommendations to follow Normocytic anemia, unknown baseline -Follow CBC -Iron studies Chronic: Hypertension Dyslipidemia DVT prophylaxis: SCDs with current brain abnormality Discussed with: patient, nursing Anticipated discharge: unknown Anticipated discharge place: Likely will need SNF A total of 45 minutes was spent on the care of this complex patient more than 50% of the time was spent in counseling and care coordination.
--- NOTE | 2019-01-16 14:53 | P.CNPUL ---
History of Present Illness Consult date: 01/16/19 Chief complaint: Generalized weakness, altered mentation, hypotension History of present illness: A 88-year-old male patient, a poor historian, known history of brain cancer and dementia in addition to various other comorbidities such as hypertension and diabetes mellitus who was transferred to a hospital for diminished level of consciousness on top of his chronic problems in addition to weakness and diarrhea. 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 The patient was discharged to [facility] for further rehabilitation when he spent the total of 6 weeks. During his stay, the patient developed some bedsores and he also developed a UTI. He was given Bactrim for a total of 5 days and he was discha rged from the [facility] on 01/14/2019. The patient was subsequently admitted to RICU because of diminished level of consciousness, hypotension, dehydration and sepsis and he is told to have an underlying urine infection. He came into the hospital and in the emergency was a very pleasant historian. Information was taken mainly from his granddaughter. His UA was consistent with infection. His creatinine was at 2.5. His lactic acid was at 5.1. His white cell count was at 19.9. Troponin was 0.018. A triple lumen catheter was inserted in the emergency and the patient was started on fluid resuscitation. CAT scan of the brain was done that showed a PAVING MACHINE OPERATOR mass suprasellar without any evidence of herniation. EKG was consistent with a sinus rhythm with a bundle- branch block pattern. Overnight, the patient was given IV fluids and earlier this morning he was switched a bicarb drip placed on the presence of an underlying non-anion gap metabolic acidosis. Antibiotic coverage is IV Zosyn. The patient showed improvement in his lactic acid level. The lactate has dropped down to 1 and the creatinine is dropped down to 1.52 and the patient is producing urine output. The urine culture is still pending for now. Neurologically, he remains a very poor historian. He is moving all 4 e xtremities. He has an extremely dry mucous membranes. He is able to swallow based on a bedside evaluation. He has a stage II coccygeal sore and stage I ulceration over the right and left great toe. The white cell count is also improving. The chest x-ray anteriorly. The chest x-ray showing airspace disease within the left hilar and right IJ catheter in place in the right atrium. Review of Systems ROS unobtainable: due to mental status Constitutional: Reports fatigue, Reports lethargy, Reports poor appetite, Reports weakness, Reports weight loss Eyes: bilateral blurred vision, denies bulging eye, denies decreased vision Ears: bilateral: decreased hearing, deny: ear discharge, earache Ears, nose, mouth and throat: Denies headache, Denies sore throat Cardiovascular: Reports decreased exercise tolerance, Reports dyspnea on exertion Respiratory: Reports dyspnea Gastrointestinal: Reports as per HPI Genitourinary: Reports as per HPI Musculoskeletal: Reports as per HPI Musculoskeletal: absent: ankle pain, ankle stiffness, ankle swelling Integumentary: Reports as per HPI Neurological: Reports ataxia, Reports balance difficulties, Reports change in mentation, Reports change in speech, Reports confusion, Reports gait dysfunction, Reports lack of coordination, Reports memory loss, Reports weakness Psychiatric: Reports as per HPI Endocrine: Reports as per HPI Hematologic/Lymphatic: Reports as per HPI Allergic/Immunologic: Reports as per HPI Past Medical History Past Medical History: Cancer, Diabetes Mellitus, Hyperlipidemia, Hypertension, Memory Impairment, Neurologic Disorder, Osteoarthritis (OA), Prostate Disorder Additional Past Medical History / Comment(s): brain tumor, hallucinations, heart murmur History of Any Multi-Drug Resistant Organisms: None Reported Past Surgical History: Orthopedic Surgery Additional Past Surgical History / Comment(s): right hip, left femur, face lift, Past Anesthesia/Blood Transfusion Reactions: No Reported Reaction Past Psychological History: Anxiety Additional Psychological History / Comment(s): Paranoia. Halluncinations Smoking Status: Former smoker Past Alcohol Use History: None Reported Past Drug Use History: None Reported Medications and Allergies Home Medications Medication Instructions Recorded Confirmed Type Acetaminophen Tab [Tylenol Tab] 650 mg PO Q6H PRN 01/15/19 01/15/19 History Atorvastatin [Lipitor] 40 mg PO HS 01/15/19 01/15/19 History Lisinopril 20 mg PO DAILY 01/15/19 01/15/19 History Magnesium Hydroxide [Milk of 2,400 mg PO HS PRN 01/15/19 01/15/19 History Magnesia] Pantoprazole Sodium [Protonix] 40 mg PO DAILY 01/15/19 01/15/19 History Pro-Stat Awc Liquid 30 ml PO BID 01/15/19 01/15/19 History QUEtiapine [SEROquel] 25 mg PO HS 01/15/19 01/15/19 History Tamsulosin [Flomax] 0.4 mg PO HS 01/15/19 01/15/19 History amLODIPine [Norvasc] 5 mg PO DAILY 01/15/19 01/15/19 History glipiZIDE [Glucotrol] 2.5 mg PO DAILY 01/15/19 01/15/19 History Allergies Allergy/AdvReac Type Severity Reaction Status Date / Time No Known Allergies Allergy Verified 01/15/19 17:18 Physical Exam Vitals: Vital Signs Temp Pulse Pulse Resp BP BP Pulse Ox 01/16/19 13:00 77 12 107/53 97 01/16/19 12:45 75 14 116/57 94 L 01/16/19 12:30 75 18 109/57 95 01/16/19 12:15 76 17 111/54 95 01/16/19 12:00 98.1 F 77 16 111/57 97 01/16/19 11:45 80 15 111/55 97 01/16/19 11:30 79 10 L 107/54 97 01/16/19 11:15 84 21 105/55 97 01/16/19 11:00 82 18 105/53 99 01/16/19 10:45 88 16 94/80 100 01/16/19 10:30 96 23 111/57 92 L 01/16/19 10:15 80 17 97/50 98 01/16/19 10:00 79 19 107/58 96 01/16/19 09:45 78 18 114/57 94 L 01/16/19 09:30 78 22 113/57 96 01/16/19 09:15 80 21 102/57 96 01/16/19 09:00 78 21 121/62 87 L 01/16/19 08:45 84 22 110/54 97 01/16/19 08:30 69 5 L 109/63 97 01/16/19 08:15 76 16 110/55 95 01/16/19 08:00 97.7 F 78 21 110/54 96 01/16/19 07:45 77 18 109/53 97 01/16/19 07:00 80 14 109/97 96 01/16/19 06:45 79 9 L 102/50 96 01/16/19 06:30 75 16 65/55 96 01/16/19 06:15 76 10 L 92/52 94 L 01/16/19 06:00 79 17 95/44 93 L 01/16/19 05:45 75 15 95/44 93 L 01/16/19 05:30 74 17 93/44 94 L 01/16/19 05:15 75 16 97/47 94 L 01/16/19 05:00 76 16 97/48 94 L 01/16/19 04:45 76 17 85/46 95 01/16/19 04:30 79 18 79/45 93 L 01/16/19 04:15 85 19 84/52 95 01/16/19 04:00 89 17 93/65 96 01/16/19 03:45 86 20 81/50 97 01/16/19 03:15 80 21 81/59 95 01/16/19 03:10 97.5 F L 83 20 81/59 97 01/16/19 03:00 80 18 85/44 96 01/16/19 02:30 86 10 L 94/74 97 01/16/19 02:00 84 12 93/64 96 01/16/19 01:30 75 17 92/61 96 01/16/19 01:00 76 12 93/41 98 01/16/19 00:57 77 17 82/55 95 01/16/19 00:50 76 33 H 79/53 95 01/16/19 00:40 77 16 72/40 95 01/16/19 00:30 78 26 H 76/43 95 01/16/19 00:20 96.9 F L 80 17 81/46 96 01/15/19 23:50 98 F 80 16 104/93 100 01/15/19 23:11 77 20 71/41 100 01/15/19 22:22 87/33 01/15/19 21:37 84 18 89/42 98 01/15/19 19:00 92 18 93/38 97 01/15/19 17:35 91 18 119/40 97 01/15/19 16:43 97.4 F L 90 18 93/74 100 Intake and Output 01/15/19 01/16/19 01/16/19 22:59 06:59 14:59 Intake Total 5136.893 647.107 Output Total 835 705 Balance 4301.893 -57.893 Intake: IV 20 470 0.9 20 70 Dextrose 5% in Water 1, 300 000 ml @ 75 mls/hr IV . [id number] PRO with Sodium Bicarb (1 Meq/ml) 150 ml Rx#:[id number] Piperacillin-Tazobactam 3 100 .375 gm In Sodium Chloride 0.9% 100 ml @ 25 mls/hr IVPB Q12H [facility] Rx# :[id number] Intake, IV Titration 4776.893 177.107 Amount Calcium Gluconate 1 gm In 100 Sodium Chloride 0.9% 100 ml @ 100 mls/hr IVPB ONCE ONE Rx#:[id number] Norepinephrine 4 mg In 76.893 177.107 Sodium Chloride 0.9% 250 ml @ 0.05 MCG/KG/MIN 13. 739 mls/hr IV .[id number] [facility] Rx#:[id number] Piperacillin-Tazobactam 3 100 .375 gm In Sodium Chloride 0.9% 100 ml @ 25 mls/hr IVPB Q12H [facility] Rx# :[id number] Sodium Chloride 0.9% 1, 1200 000 ml @ 150 mls/hr IV . Q6H40M [facility] Rx#:[id number] Sodium Chloride 0.9% 1, 1000 000 ml @ 999 mls/hr IV . Q1H1M [facility] Rx#:[id number] Sodium Chloride 0.9% 1, 1000 000 ml @ 999 mls/hr IV . Q1H1M [facility] Rx#:[id number] Sodium Chloride 0.9% 500 500 ml 500 ml @ 999 mls/hr IV .Q31M [facility] Rx#:[id number] Sodium Chloride 0.9% 500 500 ml 500 ml @ 999 mls/hr IV .Q31M [facility] Rx#:[id number] Vancomycin 1,250 mg In 250 Sodium Chloride 0.9% 250 ml @ 125 mls/hr IVPB ONCE ONE Rx#:[id number] cefTRIAXone 1 gm In 50 Sodium Chloride 0.9% 50 ml @ 100 mls/hr IVPB Q24H [facility] Rx#:[id number] Oral 340 Output: Urine 835 705 Other: Voiding Method Indwelling Catheter Indwelling Catheter Weight 72.121 kg 72.12 kg 72.12 kg General: elderly ill appearing M, no distress, appears at stated age, normal weight, nonacute respiratory distress. No agitation. Calm and comfortable. Derm: L great toe likely gangrene, warm, dry Head: atraumatic, normocephalic, symmetric Eyes: EOMI, no lid lag, anicteric sclera, pupils equal round reactive to light ENT: Nose and ears atraumatic, no thrush, no pharyngeal erythema, extremely dry mucous membranes. Neck: No thyromegaly, no cervical lymphadenopathy, trachea midline, supple Mouth: no lip lesion, mucus membranes moist Cardiovascular: S1S2 reg, systolic ejection murmur grade 4/6 heard throughout the precordium radiating to the neck. This is mainly appreciated in the left lateral sternal border hours apex., positive posterior tibial pulse bilateral, no edema, capillary refill less than 2 seconds Lungs: CTA bilateral, no rhonchi, no rales , no accessory muscle use Abdominal: soft, nontender to palpation, no guarding, no appreciable organomegaly, normal bowel sounds Ext: no gross muscle atrophy, muscle strength 3 out of 5 in all 4 extremities grossly, no contractures, Neuro: Not following all commands, examination limited, moving all 4 extremities without any limitation. Neurologic exam is nonfocal. No facial asymmetry. Pupils are equal and reactive to light. Psych: Awake, not oriented to self, place, or time Results - Laboratory Findings CBC and BMP: 01/16/19 03:43 01/16/19 13:10 PT/INR, D-dimer PT 11.4 sec (9.0-12.0) 01/15/19 16:45 INR 1.1 (<1.2) 01/15/19 16:45 Abnormal lab findings: Abnormal Labs 01/15/19 01/15/19 01/15/19 16:45 16:45 16:45 WBC 19.9 H RBC 2.74 L Hgb 8.0 L Hct 24.4 L RDW 17.0 H Neutrophils # 16.2 H Potassium 5.5 H Chloride 110 H Carbon Dioxide 19 L BUN 71 H Creatinine 2.59 H Glucose POC Glucose (mg/dL) Plasma Lactic Acid Vik 5.1 H* Calcium Magnesium Alkaline Phosphatase 153 H Total Protein 5.1 L Albumin 2.6 L Urine Protein Urine Blood Ur Leukocyte Esterase Urine RBC Urine WBC Hyaline Casts Urine Mucus 01/15/19 01/15/19 01/16/19 16:45 21:22 00:13 WBC RBC Hgb Hct RDW Neutrophils # Potassium Chloride Carbon Dioxide BUN Creatinine Glucose POC Glucose (mg/dL) 71 L Plasma Lactic Acid Vik 2.2 H* Calcium Magnesium Alkaline Phosphatase Total Protein Albumin Urine Protein 1+ H Urine Blood Trace H Ur Leukocyte Esterase Moderate H Urine RBC 15 H Urine WBC 17 H Hyaline Casts 12 H Urine Mucus Rare H 01/16/19 01/16/19 01/16/19 03:43 03:43 11:56 WBC 13.3 H RBC 2.33 L Hgb 7.0 L Hct 21.1 L RDW 17.0 H Neutrophils # 10.6 H Potassium Chloride 116 H Carbon Dioxide 16 L BUN 55 H Creatinine 1.86 H Glucose 56 L POC Glucose (mg/dL) 114 H Plasma Lactic Acid Vik Calcium 8.0 L Magnesium 1.5 L Alkaline Phosphatase 132 H Total Protein 4.6 L Albumin 2.2 L Urine Protein Urine Blood Ur Leukocyte Esterase Urine RBC Urine WBC Hyaline Casts Urine Mucus 01/16/19 01/16/19 12:11 13:10 WBC RBC Hgb Hct RDW Neutrophils # Potassium Chloride 117 H Carbon Dioxide 16 L BUN 47 H Creatinine 1.52 H Glucose POC Glucose (mg/dL) 106 H Plasma Lactic Acid Vik Calcium 8.1 L Magnesium Alkaline Phosphatase Total Protein Albumin Urine Protein Urine Blood Ur Leukocyte Esterase Urine RBC Urine WBC Hyaline Casts Urine Mucus - Diagnostic Findings Chest x-ray: image reviewed Assessment and Plan Plan: 1 sepsis/hypotension likely secondary to underlying UTI, consider gram-negative infection. The patient is currently being resuscitated IV fluids and pressors and antibiotics. Echocardiogram is in progress. 2 acute kidney injury improving and it creatinine is down to 1.5 3 acute lactic acidosis and leukocytosis, improving 4 dehydration 5 non-anion gap metabolic acidosis currently on a bicarb drip 6 hyperkalemia improved 7 brain mass/tumor evaluated at [facility] by neurosurgery and the patient is being considered for a ENGINE[employer] shunt forhydrocephalus. 8 diabetes mellitus 9 hypertension 10 hyperlipidemia 11 dementia 12 cardiac murmur awaiting an echocardiogram, consider aortic valve stenosis 13 chronic normocytic anemia stable for now Plan Continue IV fluids. The patient was resuscitated adequately. The patient was recently bicarb infusions rate of 75 mL an hour. Awaiting an echocardiogram to assess LV function and valvular cardiac functions. Continue Zosyn. Ultrasound the kidneys. Nephrology consultation. Long-term prognosis poor specially the patient has multiple comorbidities, his overall performance and functional status is poor and the patient is having a complicated PAVING MACHINE OPERATOR tumor/mass. The priority for now is to reverse the shock and hypotension an underlying UTI. We'll monitor renal function. Monitor rest of the comorbidities. Consult neurology regarding the PAVING MACHINE OPERATOR tumor. We will address CODE STATUS with the family. For now his CODE STATUS is full.
[2019-01-16 16:59] LABS: Glucose,Whole Blood 133 mg/dL (75-99)
[2019-01-16 20:12] LABS: Iron Saturation 20.36 (15.00-50.00)
[2019-01-16] MEDS: QUEtiapine 25 MG TAB PO SCH (20:28)
[2019-01-16] MEDS: TAMSULOSIN 0.4 MG CAP.ER.24H PO SCH (20:28)
[2019-01-16] MEDS: ATORVASTATIN 40 MG TAB PO SCH (20:28)
[2019-01-16 20:47] LABS: Glucose,Whole Blood 141 mg/dL (75-99)
[2019-01-17 05:13] LABS: Anisocytosis Slight; Basophils # (A) 0.1 k/uL (0-0.2); Basophils % (A) 1 %; Eosinophils # (A) 0.1 k/uL (0-0.7); Eosinophils % (A) 1 %; HCT 20.4 % (39.0-53.0); Hypochromasia Slight; Lymphocytes # (A) 1.6 k/uL (1.0-4.8); Lymphocytes % (A) 15 %; MCH 29.3 pg (25.0-35.0); MCV 88.7 fL (80.0-100.0); Mean Platelet Volume 7.4; Monocytes # (A) 0.6 k/uL (0-1.0); Monocytes % (A) 6 %; Neutrophils % (A) 77 %; Platelet Count 211 k/uL (150-450); Poikilocytosis Slight; RDW 17.3 % (11.5-15.5); WBC 10.4 k/uL (3.8-10.6)
[2019-01-17 05:17] LABS: HGB 6.7 gm/dL (13.0-17.5)
[2019-01-17 05:20] LABS: Calcium 7.5 mg/dL (8.4-10.2); Magnesium 1.5 mg/dL (1.6-2.3); Phosphorus 2.3 mg/dL (2.5-4.5)
[2019-01-17 05:25] LABS: Vancomycin,Random 12.6 ug/mL
[2019-01-17 06:12] LABS: Anisocytosis Slight; Hypochromasia Slight; MCH 30.1 pg (25.0-35.0); MCHC 33.7 g/dL (31.0-37.0); MCV 89.3 fL (80.0-100.0); Mean Platelet Volume 7.4; Platelet Count 214 k/uL (150-450); Poikilocytosis Moderate; RBC 2.16 m/uL (4.30-5.90); RDW 17.4 % (11.5-15.5); WBC 10.7 k/uL (3.8-10.6)
[2019-01-17 06:21] LABS: Calcium 7.5 mg/dL (8.4-10.2); Potassium 3.1 mmol/L (3.5-5.1)
[2019-01-17] MEDS: INSULIN ASPART (NovoLOG) 100 UNIT/ML VIAL SQ SCH ×4 (06:24→21:56)
[2019-01-17 06:31] LABS: HCT 19.3 % (39.0-53.0); HGB 6.5 gm/dL (13.0-17.5)
[2019-01-17] MEDS ORDERED: Magnesium Replacement Protocol 1 EACH MISC MISCELLANE PRN (06:32)
[2019-01-17] MEDS: MAGNESIUM SULFATE-D5W PMX 1 GM in DEXTROSE/WATER 1 100ML.BAG IVPB SCH ×2 (06:44→09:48)
[2019-01-17] MEDS: POTASSIUM BICARBONATE/CIT AC 20 MEQ TABLET.EFF NG-TUBE SCH ×3 (06:44→10:35)
[2019-01-17 07:22] LABS: Glucose,Whole Blood 151 mg/dL (75-99)
--- NOTE | 2019-01-17 08:56 | P.PN ---
Subjective Patient is seen in follow-up for acute kidney injury. Patient's creatinine on admission was 2.59 and is down to 1.12 today. Unclear as to what his baseline renal function is. Hemoglobin today is 6.5. No active bleeding. Patient is confused. Still on low-dose Levophed. Vital signs are stable. General: The patient appeared well nourished and normally developed. HEENT: Head exam is unremarkable. Neck is without jugular venous distension. LUNGS: Breath sounds decreased. HEART: Rate and Rhythm are regular. First and second heart sounds normal. No murmurs, rubs or gallops. ABDOMEN: Abdominal exam reveals normal bowel sounds. Non-tender and non- distended. No evidence of peritonitis. EXTREMITITES: No clubbing, cyanosis, or edema. Objective - Vital Signs Vital signs: Vital Signs Temp 97.5 F L 01/17/19 04:00 Pulse 78 01/17/19 07:00 Resp 15 01/17/19 07:00 BP 114/51 01/17/19 07:00 Pulse Ox 96 01/17/19 07:00 Intake & Output 01/16/19 01/17/19 01/17/19 18:59 06:59 18:59 Intake Total 8287.489 2728.166 185 Output Total 1305 850 70 Balance 17.107 692.166 115 Weight 72.12 kg 68.8 kg Intake: IV 1145 1120 85 0.9 120 120 10 Dextrose 5% in Water 1, 675 900 75 000 ml @ 75 mls/hr IV . [id number] PRO with Sodium Bicarb (1 Meq/ml) 150 ml Rx#:[id number] Piperacillin-Tazobactam 3 100 100 .375 gm In Sodium Chloride 0.9% 100 ml @ 25 mls/hr IVPB Q12H [facility] Rx# :[id number] Vancomycin 1,250 mg In 250 Sodium Chloride 0.9% 250 ml @ 125 mls/hr IVPB ONCE STA Rx#:[id number] Intake, IV Titration 177.107 222.166 100 Amount Magnesium Sulfate-D5w Pmx 100 1 gm In Dextrose/Water 1 100ml.bag @ 100 mls/hr IVPB Q1H [facility] Rx#: [id number] Norepinephrine 4 mg In 177.107 222.166 Sodium Chloride 0.9% 250 ml @ 0.05 MCG/KG/MIN 13. 739 mls/hr IV .[id number] [facility] Rx#:[id number] Oral 200 Output: Urine 1305 850 70 Other: Voiding Method Indwelling Catheter Indwelling Catheter - Labs CBC & Chem 7: 01/17/19 06:00 01/17/19 06:00 Labs: Abnormal Lab Results - Last 24 Hours (Table) 01/16/19 01/16/19 01/16/19 Range/Units 08:37 11:56 12:11 WBC (3.8-10.6) k/uL RBC (4.30-5.90) m/uL Hgb (13.0-17.5) gm/dL Hct (39.0-53.0) % RDW (11.5-15.5) % Neutrophils # (1.3-7.7) k/uL Potassium (3.5-5.1) mmol/L Chloride (98-107) mmol/L Carbon Dioxide (22-30) mmol/L BUN (9-20) mg/dL Creatinine (0.66-1.25) mg/dL Glucose (74-99) mg/dL POC Glucose (mg/dL) 114 H 106 H (75-99) mg/dL Calcium (8.4-10.2) mg/dL Phosphorus (2.5-4.5) mg/dL Magnesium (1.6-2.3) mg/dL Iron 34 L (65-175) ug/dL TIBC 167 L (228-460) ug/dL Ferritin 679.6 H (22.0-322.0) ng/mL Crossmatch 01/16/19 01/16/19 01/16/19 Range/Units 13:10 16:47 20:35 WBC (3.8-10.6) k/uL RBC (4.30-5.90) m/uL Hgb (13.0-17.5) gm/dL Hct (39.0-53.0) % RDW (11.5-15.5) % Neutrophils # (1.3-7.7) k/uL Potassium (3.5-5.1) mmol/L Chloride 117 H (98-107) mmol/L Carbon Dioxide 16 L (22-30) mmol/L BUN 47 H (9-20) mg/dL Creatinine 1.52 H (0.66-1.25) mg/dL Glucose (74-99) mg/dL POC Glucose (mg/dL) 133 H 141 H (75-99) mg/dL Calcium 8.1 L (8.4-10.2) mg/dL Phosphorus (2.5-4.5) mg/dL Magnesium (1.6-2.3) mg/dL Iron (65-175) ug/dL TIBC (228-460) ug/dL Ferritin (22.0-322.0) ng/mL Crossmatch 01/17/19 01/17/19 01/17/19 Range/Units 04:19 04:19 06:00 WBC (3.8-10.6) k/uL RBC 2.30 L (4.30-5.90) m/uL Hgb 6.7 L* (13.0-17.5) gm/dL Hct 20.4 L (39.0-53.0) % RDW 17.3 H (11.5-15.5) % Neutrophils # 8.0 H (1.3-7.7) k/uL Potassium 3.0 L (3.5-5.1) mmol/L Chloride 113 H (98-107) mmol/L Carbon Dioxide 21 L (22-30) mmol/L BUN 33 H (9-20) mg/dL Creatinine (0.66-1.25) mg/dL Glucose 118 H (74-99) mg/dL POC Glucose (mg/dL) (75-99) mg/dL Calcium 7.5 L (8.4-10.2) mg/dL Phosphorus 2.3 L (2.5-4.5) mg/dL Magnesium 1.5 L (1.6-2.3) mg/dL Iron (65-175) ug/dL TIBC (228-460) ug/dL Ferritin (22.0-322.0) ng/mL Crossmatch See Detail 01/17/19 01/17/19 01/17/19 Range/Units 06:00 06:00 07:11 WBC 10.7 H (3.8-10.6) k/uL RBC 2.16 L (4.30-5.90) m/uL Hgb 6.5 L* (13.0-17.5) gm/dL Hct 19.3 L* (39.0-53.0) % RDW 17.4 H (11.5-15.5) % Neutrophils # (1.3-7.7) k/uL Potassium 3.1 L (3.5-5.1) mmol/L Chloride 113 H (98-107) mmol/L Carbon Dioxide (22-30) mmol/L BUN 33 H (9-20) mg/dL Creatinine (0.66-1.25) mg/dL Glucose 123 H (74-99) mg/dL POC Glucose (mg/dL) 151 H (75-99) mg/dL Calcium 7.5 L (8.4-10.2) mg/dL Phosphorus (2.5-4.5) mg/dL Magnesium (1.6-2.3) mg/dL Iron (65-175) ug/dL TIBC (228-460) ug/dL Ferritin (22.0-322.0) ng/mL Crossmatch Microbiology - Last 24 Hours (Table) 01/15/19 16:45 Urine Culture - Final Urine,Voided 01/15/19 17:20 Blood Culture - Preliminary Blood No Growth after 24 hours Assessment and Plan Plan: Assessment: 1. Acute kidney injury mostly prerenal secondary to hypotension/septic shock. Creatinine was 2.59 on admission and is 1.12 today. Unknown baseline renal function. No evidence of hydronephrosis noted on renal ultrasound. 2. Metabolic acidosis secondary to acute kidney injury and IV fluids. Better. 3. Hyperkalemia secondary to acute kidney injury and metabolic acidosis. Patient was also on lisinopril outpatient. Now hypokalemic as renal function is recovering and also from intracellular shifting from IV bicarb. 4. Diabetes mellitus. 5. Acute blood loss anemia. Scheduled to receive 1 unit of blood today. 6. Septic shock. Source likely being UTI. Currently on Levophed. 7. Left brain mass. 8. Hypomagnesemia from poor oral intake. Being replaced. Plan: Discontinue bicarbonate drip. Start normal saline at 75 mL an hour. Add oral sodium bicarbonate. Replace potassium. 80 mEq today. Follow-up cultures. Wean Levophed. Continue to monitor renal function and urine output.
[2019-01-17] MEDS ORDERED: ENOXAPARIN 30 MG/0.3 ML SYRINGE SQ SCH (09:00)
[2019-01-17] MEDS: BACITRACIN 500 UNIT/GM OINT 28.4 GM TUBE TOPICAL SCH ×2 (09:48→21:56)
[2019-01-17] MEDS: SODIUM BICARBONATE TAB 650 MG TAB PO SCH ×2 (09:48→21:55)
[2019-01-17] MEDS: PANTOPRAZOLE 40 MG/10 ML VIAL IV SCH (09:49)
[2019-01-17] MEDS: SODIUM CHLORIDE 0.9% 1,000 ML IV SCH (09:49)
[2019-01-17] MEDS: PIPERACILLIN-TAZOBACTAM 3.375 GM in SODIUM CHLORIDE 0.9% 100 ML IVPB SCH ×2 (10:00→21:55)
[2019-01-17] MEDS ORDERED: POTASSIUM BICARBONATE/CIT AC 20 MEQ TABLET.EFF PO ONE (11:38)
--- NOTE | 2019-01-17 12:04 | P.CONS ---
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 Patient was discharged to [facility] for 6 weeks and subsequently discharged home for one day and brought in the hospital due to changes in mental status as well as weakness. Granddaughter is also power of trust and estates attorney and seeking permanent guardianship has related to the nurses that patient developed bedsores while at the skilled nursing. Patient is noted to have a stage II decubitus ulcer to the coccyx and stage II ulcers to the bilateral great toes. Patient also was treated at the skilled nursing for urinary tract infection with Bactrim. Patient presented to [facility] with signs of sepsis, septic shock, acute kidney injury with metabolic acidosis. Patient was admitted into the intensive care unit on small dose of norepinephrine which is being weaned off today. He is receiving 1 unit of packed RBCs for hemoglobin of 6.5. He has multiple consultants in place incl uding Dr. Lara for acute kidney injury, Dr. Macedo for intensive care management. Chest x-ray shows no active cardiopulmonary disease. Repeat chest x-ray reveals airspace disease within the left hilar and right IJ catheter in place. Renal ultrasound shows no hydronephrosis. CAT scan of the brain shows large elongated mass in the left suprasellar region. 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 Contrast CT could be helpful. Cerebral atrophy and chronic small vessel ischemia. Leukocytosis has improved from 19.9-10.7 as well as lactic acid from 2.2-1. Patient is currently on Zosyn and received 1 dose of vancomycin. Blood culture showing no growth after 24 hours and urine culture has been finalized with no growth. Review of Systems ROS unobtainable: due to mental status Past Medical History Past Medical History: Cancer, Diabetes Mellitus, Hyperlipidemia, Hypertension, Memory Impairment, Neurologic Disorder, Osteoarthritis (OA), Prostate Disorder Additional Past Medical History / Comment(s): brain tumor, hallucinations, heart murmur History of Any Multi-Drug Resistant Organisms: None Reported Past Surgical History: Orthopedic Surgery Additional Past Surgical History / Comment(s): right hip, left femur, face lift, Past Anesthesia/Blood Transfusion Reactions: No Reported Reaction Past Psychological History: Anxiety Additional Psychological History / Comment(s): Paranoia. Halluncinations Smoking Status: Former smoker Past Alcohol Use History: None Reported Past Drug Use History: None Reported Medications and Allergies Home Medications Medication Instructions Recorded Confirmed Type Acetaminophen Tab [Tylenol] 650 mg PO Q6H PRN 01/15/19 01/15/19 History Atorvastatin [Lipitor] 40 mg PO HS 01/15/19 01/15/19 History Magnesium Hydroxide [Milk of 2,400 mg PO HS PRN 01/15/19 01/15/19 History Magnesia] Pantoprazole Sodium [Protonix] 40 mg PO DAILY 01/15/19 01/15/19 History Pro-Stat Awc Liquid 30 ml PO BID 01/15/19 01/15/19 History QUEtiapine [SEROquel] 25 mg PO HS 01/15/19 01/15/19 History Tamsulosin [Flomax] 0.4 mg PO HS 01/15/19 01/15/19 History Bacitracin Oint 1 applic TOPICAL BID applic 01/23/19 Rx Cephalexin [Keflex] 500 mg PO TID #21 cap 01/23/19 Rx Lisinopril [Zestril] 5 mg PO DAILY tab 01/23/19 Rx Magnesium Oxide [Mag-Ox] 400 mg PO BID tab 01/23/19 Rx Sod Phos Di, [place]/K Phos [place] 250 mg PO DAILY #30 tablet 01/23/19 Rx [K-Phos Neutral Tablet] Sodium Bicarbonate Tab 650 mg PO DAILY tab 01/23/19 Rx sitaGLIPtin [Januvia] 100 mg PO DAILY #30 tab 01/23/19 Rx Allergies Allergy/AdvReac Type Severity Reaction Status Date / Time No Known Allergies Allergy Verified 01/15/19 17:18 Physical Exam Vitals: Vital Signs Temp Pulse Resp BP Pulse Ox 01/17/19 11:15 76 20 125/71 97 01/17/19 11:00 79 17 125/71 97 01/17/19 10:45 82 13 117/68 97 01/17/19 10:30 79 13 108/54 97 01/17/19 10:15 80 19 117/61 96 01/17/19 10:11 97.7 F 77 14 98/58 01/17/19 10:00 80 17 106/58 95 01/17/19 09:45 76 18 114/60 96 01/17/19 09:41 98.1 F 80 16 110/65 96 01/17/19 09:31 97.5 F L 72 14 110/53 96 01/17/19 09:30 69 18 107/59 96 01/17/19 09:15 73 14 108/76 97 01/17/19 09:00 83 16 62/36 97 01/17/19 08:45 15 102/53 97 01/17/19 08:30 85 12 101/56 97 01/17/19 08:15 77 17 116/61 99 01/17/19 08:00 97.5 F L 84 9 L 102/54 97 01/17/19 07:45 85 12 105/48 99 01/17/19 07:30 73 17 99/50 97 01/17/19 07:15 73 15 96/56 98 01/17/19 07:00 78 15 114/51 96 01/17/19 06:45 65 15 86/52 96 01/17/19 06:30 77 18 105/45 96 01/17/19 06:15 64 9 L 86/58 94 L 01/17/19 06:00 78 20 88/48 96 01/17/19 05:45 82 16 88/50 95 01/17/19 05:30 100 10 L 100/60 97 01/17/19 05:15 80 14 94/53 94 L 01/17/19 05:00 74 22 89/63 96 01/17/19 04:45 23 97/56 97 01/17/19 04:30 60 15 92/53 97 01/17/19 04:15 66 13 103/49 94 L 01/17/19 04:00 97.5 F L 64 8 L 96/53 95 01/17/19 03:45 85 11 L 114/98 97 01/17/19 03:30 85 14 97/59 97 01/17/19 03:15 9 L 121/110 98 01/17/19 03:00 101 H 16 110/56 97 01/17/19 02:45 17 103/52 97 01/17/19 02:30 87 26 H 90/63 96 01/17/19 02:15 77 25 H 109/56 97 01/17/19 02:00 75 11 L 95/52 97 01/17/19 01:45 75 8 L 104/48 97 01/17/19 01:30 74 10 L 100/52 97 01/17/19 01:15 71 15 100/53 96 01/17/19 01:00 65 14 93/50 96 01/17/19 00:45 77 16 105/59 97 01/17/19 00:30 74 11 L 95/61 96 01/17/19 00:15 71 9 L 112/65 97 01/17/19 00:00 97.3 F L 86 7 L 103/54 97 01/16/19 23:45 80 17 101/53 97 01/16/19 23:30 68 17 96/59 96 01/16/19 23:15 77 11 L 99/67 98 01/16/19 23:00 68 9 L 102/56 97 01/16/19 22:45 71 14 102/49 97 01/16/19 22:30 68 12 100/75 98 01/16/19 22:15 62 13 88/49 98 01/16/19 22:00 78 20 92/50 98 01/16/19 21:45 56 L 15 103/54 96 01/16/19 21:30 70 18 94/61 97 01/16/19 21:15 93 16 101/47 95 01/16/19 21:00 75 18 110/66 97 01/16/19 20:45 65 17 101/65 97 01/16/19 20:30 82 11 L 100/67 98 01/16/19 20:15 106 H 18 104/47 97 01/16/19 20:00 97.3 F L 81 14 107/70 98 01/16/19 19:45 78 17 111/61 98 01/16/19 19:30 74 15 102/62 98 01/16/19 19:15 80 12 107/50 01/16/19 19:00 80 17 105/55 01/16/19 18:45 80 13 97/54 01/16/19 18:30 85 17 108/52 01/16/19 18:15 82 18 106/51 01/16/19 18:00 79 16 101/61 96 01/16/19 17:45 79 16 104/49 01/16/19 17:30 76 15 110/63 01/16/19 17:15 80 17 113/52 97 01/16/19 17:00 79 17 111/55 99 01/16/19 16:45 82 16 101/46 97 01/16/19 16:30 76 14 97/50 96 01/16/19 16:15 76 13 95/48 97 01/16/19 16:00 98.1 F 80 10 L 105/52 97 01/16/19 15:45 87 24 91/61 97 01/16/19 15:30 85 12 97/26 98 01/16/19 15:15 85 16 103/50 96 01/16/19 15:00 84 18 131/59 95 01/16/19 14:45 80 12 109/58 97 01/16/19 14:30 85 20 106/68 95 01/16/19 14:15 85 16 111/58 97 01/16/19 14:00 91 14 114/65 97 01/16/19 13:45 85 18 124/70 96 01/16/19 13:30 89 13 117/58 97 01/16/19 13:15 85 17 70/53 97 01/16/19 13:00 77 12 107/53 97 01/16/19 12:45 75 14 116/57 94 L 01/16/19 12:30 75 18 109/57 95 01/16/19 12:15 76 17 111/54 95 01/16/19 12:00 98.1 F 77 16 111/57 97 Intake and Output 01/16/19 01/17/19 01/17/19 22:59 06:59 14:59 Intake Total 0103.763 7337.622 785 Output Total 860 490 310 Balance 142.544 639.622 475 Intake: IV 930 780 485 0.9 80 80 310 Dextrose 5% in Water 1, 600 600 75 000 ml @ 75 mls/hr IV . [id number] PRO with Sodium Bicarb (1 Meq/ml) 150 ml Rx#:[id number] Piperacillin-Tazobactam 3 100 100 .375 gm In Sodium Chloride 0.9% 100 ml @ 25 mls/hr IVPB Q12H PRO Rx# :[id number] Vancomycin 1,250 mg In 250 Sodium Chloride 0.9% 250 ml @ 125 mls/hr IVPB ONCE STA Rx#:[id number] Intake, IV Titration 72.544 149.622 200 Amount Magnesium Sulfate-D5w Pmx 200 1 gm In Dextrose/Water 1 100ml.bag @ 100 mls/hr IVPB Q1H [facility] Rx#: [id number] Norepinephrine 4 mg In 72.544 149.622 Sodium Chloride 0.9% 250 ml @ 0.05 MCG/KG/MIN 13. 739 mls/hr IV .[id number] [facility] Rx#:[id number] Oral 200 100 Blood Product 0 Rc As-1 Unit 0 [id number] Output: Urine 860 490 310 Other: Voiding Method Indwelling Catheter Indwelling Catheter Weight 68.8 kg Gen: This is an 88-year-old male. He is sitting up in bed and appears to be in no acute distress. Sitter is at the bedside. HEENT: Head is atraumatic, normocephalic. Pupils equal, round. Sclerae is anicteric. Oral mucous membranes are moist. Patient is edentulous. NECK: Supple. No JVD. No lymphadenopathy. No thyromegaly. LUNGS: Clear to auscultation. No wheezes or rhonchi. No intercostal retractions. HEART: Regular rate and rhythm. Loud systolic murmur. ABDOMEN: Soft. Bowel sounds are present. No masses. No tenderness. Scott catheter draining clear star urine. EXTREMITIES: No pedal edema. Waffle boots in place. Patient has ulcer to the bilateral great toes, onychomycosis bilaterally. No open wounds to the heels. NEUROLOGICAL: Patient is awake, alert and confused. Results Results: Laboratory Results WBC 10.7 k/uL (3.8-10.6) H 01/17/19 06:00 RBC 2.16 m/uL (4.30-5.90) L 01/17/19 06:00 Hgb 6.5 gm/dL (13.0-17.5) L* 01/17/19 06:00 Hct 19.3 % (39.0-53.0) L* 01/17/19 06:00 MCV 89.3 fL (80.0-100.0) 01/17/19 06:00 MCH 30.1 pg (25.0-35.0) 01/17/19 06:00 MCHC 33.7 g/dL (31.0-37.0) 01/17/19 06:00 RDW 17.4 % (11.5-15.5) H 01/17/19 06:00 Plt Count 214 k/uL (150-450) 01/17/19 06:00 Neutrophils % 77 % 01/17/19 04:19 Lymphocytes % 15 % 01/17/19 04:19 Monocytes % 6 % 01/17/19 04:19 Eosinophils % 1 % 01/17/19 04: Basophils % 1 % 01/17/19 04:19 Neutrophils # 8.0 k/uL (1.3-7.7) H 01/17/19 04:19 Lymphocytes # 1.6 k/uL (1.0-4.8) 01/17/19 04:19 Monocytes # 0.6 k/uL (0-1.0) 01/17/19 04:19 Eosinophils # 0.1 k/uL (0-0.7) 01/17/19 04:19 Basophils # 0.1 k/uL (0-0.2) 01/17/19 04:19 Hypochromasia Slight 01/17/19 06:00 Poikilocytosis Moderate 01/17/19 06:00 Anisocytosis Slight 01/17/19 06:00 PT 11.4 sec (9.0-12.0) 01/15/19 16:45 INR 1.1 (<1.2) 01/15/19 16:45 APTT 24.7 sec (22.0-30.0) 01/15/19 16:45 Sodium 142 mmol/L (137-145) 01/17/19 06:00 Potassium 3.1 mmol/L (3.5-5.1) L 01/17/19 06:00 Chloride 113 mmol/L (98-107) H 01/17/19 06:00 Carbon Dioxide 22 mmol/L (22-30) 01/17/19 06:00 Anion Gap 7 mmol/L 01/17/19 06:00 BUN 33 mg/dL (9-20) H 01/17/19 06:00 Creatinine 1.12 mg/dL (0.66-1.25) 01/17/19 06:00 Est GFR (CKD-EPI)AfAm 68 (>60 ml/min/1.73 sqM) 01/17/19 06:00 Est GFR (CKD-EPI)NonAf 59 (>60 ml/min/1.73 sqM) 01/17/19 06:00 Glucose 123 mg/dL (74-99) H 01/17/19 06:00 POC Glucose (mg/dL) 151 mg/dL (75-99) H 01/17/19 07:11 POC Glu Crossword Puzzle Maker Cara Castro 01/17/19 07:11 Lactic Ac Sepsis Rflx Y 01/15/19 21:52 Plasma Lactic Acid Vik 1.0 mmol/L (0.7-2.0) 01/16/19 08:37 Calcium 7.5 mg/dL (8.4-10.2) L 01/17/19 06:00 Phosphorus 2.3 mg/dL (2.5-4.5) L 01/17/19 04:19 Magnesium 1.5 mg/dL (1.6-2.3) L 01/17/19 04:19 Iron 34 ug/dL (65-175) L 01/16/19 08:37 TIBC 167 ug/dL (228-460) L 01/16/19 08:37 Iron Saturation 20.36 (15.00-50.00) 01/16/19 08:37 Ferritin 679.6 ng/mL (22.0-322.0) H 01/16/19 08:37 Total Bilirubin 0.3 mg/dL (0.2-1.3) 01/16/19 03:43 AST 38 U/L (17-59) 01/16/19 03:43 ALT 28 U/L (21-72) 01/16/19 03:43 Alkaline Phosphatase 132 U/L (38-126) H 01/16/19 03:43 Troponin I 0.018 ng/mL (0.000-0.034) 01/15/19 16:45 Total Protein 4.6 g/dL (6.3-8.2) L 01/16/19 03:43 Albumin 2.2 g/dL (3.5-5.0) L 01/16/19 03:43 Urine Color Yellow 01/15/19 16:45 Urine Appearance Cloudy (Clear) 01/15/19 16:45 Urine pH 5.0 (5.0-8.0) 01/15/19 16:45 Ur Specific [place] 1.019 (1.001-1.035) 01/15/19 16:45 Urine Protein 1+ (Negative) H 01/15/19 16:45 Urine Glucose (UA) Negative (Negative) 01/15/19 16:45 Urine Ketones Negative (Negative) 01/15/19 16:45 Urine Blood Trace (Negative) H 01/15/19 16:45 Urine Nitrite Negative (Negative) 01/15/19 16:45 Urine Bilirubin Negative (Negative) 01/15/19 16:45 Urine Urobilinogen <2.0 mg/dL (<2.0) 01/15/19 16:45 Ur Leukocyte Esterase Moderate (Negative) H 01/15/19 16:45 Urine RBC 15 /hpf (0-5) H 01/15/19 16:45 Urine WBC 17 /hpf (0-5) H 01/15/19 16:45 Hyaline Casts 12 /lpf (0-2) H 01/15/19 16:45 Urine Mucus Rare /hpf (None) H 01/15/19 16:45 Random Vancomycin 12.6 ug/mL 01/17/19 04:19 Blood Type O Positive 01/17/19 06:00 Blood Type Confirm O Positive 01/17/19 06:41 Blood Type Recheck CABO Indicated 01/17/19 06:00 Antibody Screen NEGATIVE 01/17/19 06:00 Crossmatch See Detail 01/17/19 06:00 Spec Expiration Date 01/20/2019229901/17/19 06:00 CBC & Chem 7: 01/20/19 06:46 01/23/19 10:41 Labs: Abnormal Lab Results - Last 24 Hours (Table) 01/16/19 01/16/19 01/16/19 Range/Units 08:37 11:56 12:11 WBC (3.8-10.6) k/uL RBC (4.30-5.90) m/uL Hgb (13.0-17.5) gm/dL Hct (39.0-53.0) % RDW (11.5-15.5) % Neutrophils # (1.3-7.7) k/uL Potassium (3.5-5.1) mmol/L Chloride (98-107) mmol/L Carbon Dioxide (22-30) mmol/L BUN (9-20) mg/dL Creatinine (0.66-1.25) mg/dL Glucose (74-99) mg/dL POC Glucose (mg/dL) 114 H 106 H (75-99) mg/dL Calcium (8.4-10.2) mg/dL Phosphorus (2.5-4.5) mg/dL Magnesium (1.6-2.3) mg/dL Iron 34 L (65-175) ug/dL TIBC 167 L (228-460) ug/dL Ferritin 679.6 H (22.0-322.0) ng/mL Crossmatch 01/16/19 01/16/19 01/16/19 Range/Units 13:10 16:47 20:35 WBC (3.8-10.6) k/uL RBC (4.30-5.90) m/uL Hgb (13.0-17.5) gm/dL Hct (39.0-53.0) % RDW (11.5-15.5) % Neutrophils # (1.3-7.7) k/uL Potassium (3.5-5.1) mmol/L Chloride 117 H (98-107) mmol/L Carbon Dioxide 16 L (22-30) mmol/L BUN 47 H (9-20) mg/dL Creatinine 1.52 H (0.66-1.25) mg/dL Glucose (74-99) mg/dL POC Glucose (mg/dL) 133 H 141 H (75-99) mg/dL Calcium 8.1 L (8.4-10.2) mg/dL Phosphorus (2.5-4.5) mg/dL Magnesium (1.6-2.3) mg/dL Iron (65-175) ug/dL TIBC (228-460) ug/dL Ferritin (22.0-322.0) ng/mL Crossmatch 01/17/19 01/17/19 01/17/19 Range/Units 04:19 04:19 06:00 WBC (3.8-10.6) k/uL RBC 2.30 L (4.30-5.90) m/uL Hgb 6.7 L* (13.0-17.5) gm/dL Hct 20.4 L (39.0-53.0) % RDW 17.3 H (11.5-15.5) % Neutrophils # 8.0 H (1.3-7.7) k/uL Potassium 3.0 L (3.5-5.1) mmol/L Chloride 113 H (98-107) mmol/L Carbon Dioxide 21 L (22-30) mmol/L BUN 33 H (9-20) mg/dL Creatinine (0.66-1.25) mg/dL Glucose 118 H (74-99) mg/dL POC Glucose (mg/dL) (75-99) mg/dL Calcium 7.5 L (8.4-10.2) mg/dL Phosphorus 2.3 L (2.5-4.5) mg/dL Magnesium 1.5 L (1.6-2.3) mg/dL Iron (65-175) ug/dL TIBC (228-460) ug/dL Ferritin (22.0-322.0) ng/mL Crossmatch See Detail 01/17/19 01/17/19 01/17/19 Range/Units 06:00 06:00 07:11 WBC 10.7 H (3.8-10.6) k/uL RBC 2.16 L (4.30-5.90) m/uL Hgb 6.5 L* (13.0-17.5) gm/dL Hct 19.3 L* (39.0-53.0) % RDW 17.4 H (11.5-15.5) % Neutrophils # (1.3-7.7) k/uL Potassium 3.1 L (3.5-5.1) mmol/L Chloride 113 H (98-107) mmol/L Carbon Dioxide (22-30) mmol/L BUN 33 H (9-20) mg/dL Creatinine (0.66-1.25) mg/dL Glucose 123 H (74-99) mg/dL POC Glucose (mg/dL) 151 H (75-99) mg/dL Calcium 7.5 L (8.4-10.2) mg/dL Phosphorus (2.5-4.5) mg/dL Magnesium (1.6-2.3) mg/dL Iron (65-175) ug/dL TIBC (228-460) ug/dL Ferritin (22.0-322.0) ng/mL Crossmatch Microbiology - Last 24 Hours (Table) 01/15/19 16:45 Urine Culture - Final Urine,Voided 01/15/19 17:20 Blood Culture - Preliminary Blood No Growth after 24 hours Assessment and Plan Plan: This is an 88-year-old male patient who presented to the hospital with signs of sepsis, septic shock, acute kidney injury with metabolic acidosis, metabolic encephalopathy. Patient has known history of benign brain tumor with severe dementia. Patient is currently on Zosyn. Urine culture is finalized with no growth and blood culture showing no growth after 24 hours. Continue supportive care. Further recommendations as patient progresses. The above dictated assessment and findings were discussed with Dr. Mccarty. The impression and plan of care have been directed as dictated. Natalie Mendez nurse practitioner acting as scribe for Dr. Mccarty.
[2019-01-17 12:09] LABS: Glucose,Whole Blood 194 mg/dL (75-99)
[2019-01-17 16:15] LABS: Anisocytosis Slight; Basophils # (A) 0.1 k/uL (0-0.2); Basophils % (A) 1 %; Eosinophils # (A) 0.1 k/uL (0-0.7); Eosinophils % (A) 1 %; HCT 26.1 % (39.0-53.0); Lymphocytes # (A) 1.8 k/uL (1.0-4.8); Lymphocytes % (A) 16 %; MCH 28.9 pg (25.0-35.0); MCHC 33.1 g/dL (31.0-37.0); MCV 87.4 fL (80.0-100.0); Mean Platelet Volume 7.5; Monocytes # (A) 0.7 k/uL (0-1.0); Monocytes % (A) 6 %; Neutrophils # (A) 8.7 k/uL (1.3-7.7); Neutrophils % (A) 76 %; Platelet Count 209 k/uL (150-450); Poikilocytosis Slight; RBC 2.99 m/uL (4.30-5.90); RDW 16.5 % (11.5-15.5); WBC 11.4 k/uL (3.8-10.6)
[2019-01-17 16:20] LABS: HGB 8.6 gm/dL (13.0-17.5)
--- NOTE | 2019-01-17 16:33 | P.PN ---
Subjective Progress Note Date: 01/17/19 A 88-year-old male patient, a poor historian, known history of brain cancer and dementia in addition to various other comorbidities such as hypertension and diabetes mellitus who was transferred to a hospital for diminished level of consciousness on top of his chronic problems in addition to weakness and diarrhea. 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 The patient was discharged to [facility] obviated for further rehabilitation when he spent the total of 6 weeks. During his stay, the patient developed some bedsores and he also developed a UTI. He was given Bactrim for a total of 5 days and he was discharged from the medical [place] on 01/14/2019. The patient was subsequently admitted to RICU because of diminished level of consciousness, hypotension, dehydration and sepsis and he is told to have an underlying urine infection. He came into the hospital and in the emergency was a very pleasant historian. Information was taken mainly from his granddaughter. His UA was consistent with infection. His creatinine was at 2.5. His lactic acid was at 5.1. His white cell count was at 19.9. Troponin was 0.018. A triple lumen catheter was inserted in the emergency and the patient was started on fluid resuscitation. CAT scan of the brain was done that showed a CONTINGENTS SUPERVISOR mass suprasellar without any evidence of herniation. EKG was consistent with a sinus rhythm with a bundle- branch block pattern. Overnight, the patient was given IV fluids and earlier this morning he was switched a bicarb drip placed on the presence of an underlying non-anion gap metabolic acidosis. Antibiotic coverage is IV Zosyn. The patient showed improvement in his lactic acid level. The lactate has dropped down to 1 and the creatinine is dropped down to 1.52 and the patient is producing urine output. The urine culture is still pending for now. Neurologically, he remains a very poor historian. He is moving all 4 extremities. He has an extremely dry mucous membranes. He is able to swallow based on a bedside evaluation. He has a stage II coccygeal sore and stage I ulceration over the right and left great toe. The white cell count is also improving. The chest x-ray anteriorly. The chest x-ray showing airspace disease within the left hilar and right IJ catheter in place in the right atrium. On 01/17/2019 I'm seeing this patient for a follow-up. The patient is alert and awake. He is confused and this is related to his underlying dementia. He is still on pressors although the pressor doses improved compared to yesterday and was running levo fed at a lower rate for hemodynamic support. He is receiving levo fed at the rate of 4 g per minute. He got transfused with a unit of packed RBC and hemoglobin is up to 8.6. Hemoglobin earlier was at 6.5. White cell count is not elevated. Renal function is normalized. Lactic acid level is normalized. Blood cultures negative thus far. Urine cultures also negative. The patient remains on a combination of Zosyn and vancomycin. The patient was receiving bicarb infusion and the bicarb level is also normalized. No nausea. No vomiting. No diarrhea. No aspiration. Objective - Vital Signs Vital signs: Vital Signs Temp 98.0 F 01/17/19 12:34 Pulse 81 01/17/19 15:00 Resp 21 01/17/19 15:00 BP 110/56 01/17/19 15:00 Pulse Ox 97 01/17/19 15:00 Intake & Output 01/16/19 01/17/19 01/17/19 18:59 06:59 18:59 Intake Total 1390.015 8451.166 1809.378 Output Total 1305 850 590 Balance 17.107 470.581 1809.378 Weight 72.12 kg 68.8 kg Intake: IV 1145 1120 785 0.9 120 120 610 Dextrose 5% in Water 1, 675 900 75 000 ml @ 75 mls/hr IV . [id number] PRO with Sodium Bicarb (1 Meq/ml) 150 ml Rx#:[id number] Piperacillin-Tazobactam 3 100 100 100 .375 gm In Sodium Chloride 0.9% 100 ml @ 25 mls/hr IVPB Q12H PRO Rx# :[id number] Vancomycin 1,250 mg In 250 Sodium Chloride 0.9% 250 ml @ 125 mls/hr IVPB ONCE STA Rx#:[id number] Intake, IV Titration 177.107 222.166 304.378 Amount Magnesium Sulfate-D5w Pmx 200 1 gm In Dextrose/Water 1 100ml.bag @ 100 mls/hr IVPB Q1H PRO Rx#: [id number] Norepinephrine 4 mg In 177.107 222.166 104.378 Sodium Chloride 0.9% 250 ml @ 0.05 MCG/KG/MIN 13. 739 mls/hr IV .[id number] PRO Rx#:[id number] Oral 200 100 Blood Product 620 Rc As-1 Unit 310 [id number] Output: Urine 1305 850 590 Other: Voiding Method Indwelling Catheter Indwelling Catheter Indwelling Catheter - Exam General: elderly ill appearing M, no distress, appears at stated age, normal weight, nonacute respiratory distress. No agitation. Calm and comfortable. Derm: L great toe likely gangrene, warm, dry Head: atraumatic, normocephalic, symmetric Eyes: EOMI, no lid lag, anicteric sclera, pupils equal round reactive to light ENT: Nose and ears atraumatic, no thrush, no pharyngeal erythema, extremely dry mucous membranes. Neck: No thyromegaly, no cervical lymphadenopathy, trachea midline, supple Mouth: no lip lesion, mucus membranes moist Cardiovascular: S1S2 reg, systolic ejection murmur grade 4/6 heard throughout the precordium radiating to the neck. This is mainly appreciated in the left lateral sternal border hours apex., positive posterior tibial pulse bilateral, no edema, capillary refill less than 2 seconds Lungs: CTA bilateral, no rhonchi, no rales , no accessory muscle use Abdominal: soft, nontender to palpation, no guarding, no appreciable organomegaly, normal bowel sounds Ext: no gross muscle atrophy, muscle strength 3 out of 5 in all 4 extremities grossly, no contractures, Neuro: Not following all commands, examination limited, moving all 4 extremities without any limitation. Neurologic exam is nonfocal. No facial asymmetry. Pupils are equal and reactive to light. Psych: Awake, not oriented to self, place, or time - Labs CBC & Chem 7: 01/17/19 15:30 01/17/19 15:30 Labs: Abnormal Lab Results - Last 24 Hours (Table) 01/16/19 01/16/19 01/16/19 Range/Units 08:37 16:47 20:35 WBC (3.8-10.6) k/uL RBC (4.30-5.90) m/uL Hgb (13.0-17.5) gm/dL Hct (39.0-53.0) % RDW (11.5-15.5) % Neutrophils # (1.3-7.7) k/uL Potassium (3.5-5.1) mmol/L Chloride (98-107) mmol/L Carbon Dioxide (22-30) mmol/L BUN (9-20) mg/dL Glucose (74-99) mg/dL POC Glucose (mg/dL) 133 H 141 H (75-99) mg/dL Calcium (8.4-10.2) mg/dL Phosphorus (2.5-4.5) mg/dL Magnesium (1.6-2.3) mg/dL Iron 34 L (65-175) ug/dL TIBC 167 L (228-460) ug/dL Ferritin 679.6 H (22.0-322.0) ng/mL Crossmatch 01/17/19 01/17/19 01/17/19 Range/Units 04:19 04:19 06:00 WBC (3.8-10.6) k/uL RBC 2.30 L (4.30-5.90) m/uL Hgb 6.7 L* (13.0-17.5) gm/dL Hct 20.4 L (39.0-53.0) % RDW 17.3 H (11.5-15.5) % Neutrophils # 8.0 H (1.3-7.7) k/uL Potassium 3.0 L (3.5-5.1) mmol/L Chloride 113 H (98-107) mmol/L Carbon Dioxide 21 L (22-30) mmol/L BUN 33 H (9-20) mg/dL Glucose 118 H (74-99) mg/dL POC Glucose (mg/dL) (75-99) mg/dL Calcium 7.5 L (8.4-10.2) mg/dL Phosphorus 2.3 L (2.5-4.5) mg/dL Magnesium 1.5 L (1.6-2.3) mg/dL Iron (65-175) ug/dL TIBC (228-460) ug/dL Ferritin (22.0-322.0) ng/mL Crossmatch See Detail 01/17/19 01/17/19 01/17/19 Range/Units 06:00 06:00 07:11 WBC 10.7 H (3.8-10.6) k/uL RBC 2.16 L (4.30-5.90) m/uL Hgb 6.5 L* (13.0-17.5) gm/dL Hct 19.3 L* (39.0-53.0) % RDW 17.4 H (11.5-15.5) % Neutrophils # (1.3-7.7) k/uL Potassium 3.1 L (3.5-5.1) mmol/L Chloride 113 H (98-107) mmol/L Carbon Dioxide (22-30) mmol/L BUN 33 H (9-20) mg/dL Glucose 123 H (74-99) mg/dL POC Glucose (mg/dL) 151 H (75-99) mg/dL Calcium 7.5 L (8.4-10.2) mg/dL Phosphorus (2.5-4.5) mg/dL Magnesium (1.6-2.3) mg/dL Iron (65-175) ug/dL TIBC (228-460) ug/dL Ferritin (22.0-322.0) ng/mL Crossmatch 01/17/19 01/17/19 Range/Units 11:56 15:30 WBC 11.4 H (3.8-10.6) k/uL RBC 2.99 L (4.30-5.90) m/uL Hgb 8.6 L D (13.0-17.5) gm/dL Hct 26.1 L (39.0-53.0) % RDW 16.5 H (11.5-15.5) % Neutrophils # 8.7 H (1.3-7.7) k/uL Potassium (3.5-5.1) mmol/L Chloride (98-107) mmol/L Carbon Dioxide (22-30) mmol/L BUN (9-20) mg/dL Glucose (74-99) mg/dL POC Glucose (mg/dL) 194 H (75-99) mg/dL Calcium (8.4-10.2) mg/dL Phosphorus (2.5-4.5) mg/dL Magnesium (1.6-2.3) mg/dL Iron (65-175) ug/dL TIBC (228-460) ug/dL Ferritin (22.0-322.0) ng/mL Crossmatch Microbiology - Last 24 Hours (Table) 01/15/19 16:45 Urine Culture - Final Urine,Voided 01/15/19 17:20 Blood Culture - Preliminary Blood No Growth after 24 hours Assessment and Plan Plan: 1 sepsis/hypotension likely secondary to underlying UTI, consider gram-negative infection. The patient is improved significantly. The patient is running at a lower pressors rate. Nevertheless the workup including the blood and urine cultures of been negative thus far. Clinically however, the patient is improving. 2 acute kidney injury improving renal function is normalized. 3 acute lactic acidosis and leukocytosis, improving 4 dehydration, recovered 5 non-anion gap metabolic acidosis currently on a bicarb drip, the acidosis recovered 6 hyperkalemia, improved 7 brain mass/tumor evaluated at [facility] by neurosurgery and the patient is being considered for a OVERHEAD FOREMAN shunt forhydrocephalus. 8 diabetes mellitus 9 hypertension 10 hyperlipidemia 11 dementia 12 cardiac murmur awaiting an echocardiogram, consider aortic valve stenosis 13 chronic normocytic anemia stable for now, the patient got transfused with a unit of packed RBC and hemoglobin improved posttransfusion and the patient responded nicely. Plan Switch this patient on normal saline at the rate of 75 mL an hour. Discontinue the vancomycin. Continue IV Zosyn. Wean off pressors. We'll continue to follow.
[2019-01-17 17:12] LABS: Glucose,Whole Blood 99 mg/dL (75-99)
--- NOTE | 2019-01-17 18:26 | P.PN ---
Subjective Progress Note Date: 01/17/19 Principal diagnosis: Patient is an 88-year-old male past medical history of brain tumor, diabetes, dyslipidemia, hypertension, and dementia who was sent to the ER from Dr. Bellamy's office due to lethargy and decreased responsiveness. 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 He has recently been at [facility] where he spent 6 weeks for rehab. Apparently he developed bedsores and had a urinary tract infection, he had a Scott catheter which has since been discontinued, and he was discharged home on 01/14 with Bactrim. Granddaughter noticed that he was increasingly sleepy, weak, and developed diarrhea. She took him to Dr. Bellamy's office and subsequently here. In the ER he underwent an extensive evaluation. His don't have a low blood pressure of 93/74 on admission but his vital signs were otherwise stable. Initial laboratory analysis showed white blood cell count of 19.9, hemoglobin 8, lactic acid 5.1, potassium 5.5, CO2 19, and creatinine 2.59. UA showed possible infection is currently undergoing treatment. Head CT showed a suprasellar mass but no signs of hydrocephalus. Chest x-ray was unremarkable. Patient remained hypotensive despite IV fluid administration and subsequently a right IJ central line was placed. Patient was started on norepinephrine and has subsequently been admitted to the ICU. patient seen and examined at bedside, appears to be awake and alert and conversive appears oriented at times and is redirectable. The patient denies any abdominal pain nausea vomiting. Currently receiving IV pressorlevophed 0.08 mcg/kg/min with blood pressures holding stable. Noted electrolytes abnormalities this morning potassium 3.1 and magnesium 1.5, hemoglobin down to 6.5 Objective - Vital Signs Vital signs: Vital Signs Temp 98.0 F 01/17/19 12:34 Pulse 78 01/17/19 12:34 Resp 16 01/17/19 12:34 BP 117/65 01/17/19 12:34 Pulse Ox 96 01/17/19 12:15 Intake & Output 01/16/19 01/17/19 01/17/19 18:59 06:59 18:59 Intake Total 4728.621 5589.166 1480 Output Total 1305 850 410 Balance 17.107 321.823 6011 Weight 72.12 kg 68.8 kg Intake: IV 1145 1120 560 0.9 120 120 385 Dextrose 5% in Water 1, 675 900 75 000 ml @ 75 mls/hr IV . [id number] PRO with Sodium Bicarb (1 Meq/ml) 150 ml Rx#:[id number] Piperacillin-Tazobactam 3 100 100 100 .375 gm In Sodium Chloride 0.9% 100 ml @ 25 mls/hr IVPB Q12H PRO Rx# :[id number] Vancomycin 1,250 mg In 250 Sodium Chloride 0.9% 250 ml @ 125 mls/hr IVPB ONCE STA Rx#:[id number] Intake, IV Titration 177.107 222.166 200 Amount Magnesium Sulfate-D5w Pmx 200 1 gm In Dextrose/Water 1 100ml.bag @ 100 mls/hr IVPB Q1H [facility] Rx#: [id number] Norepinephrine 4 mg In 177.107 222.166 Sodium Chloride 0.9% 250 ml @ 0.05 MCG/KG/MIN 13. 739 mls/hr IV .[id number] [facility] Rx#:[id number] Oral 200 100 Blood Product 620 Rc As-1 Unit 310 [id number] Output: Urine 1305 850 410 Other: Voiding Method Indwelling Catheter Indwelling Catheter Indwelling Catheter - Exam Constitutional: No acute distress, conversant, pleasant Eyes: Anicteric sclerae, moist conjunctiva, no lid-lag, PERRLA ENMT: NC/AT,Oropharynx clear, no erythema, exudates Neck:Supple, FROM, no masses, or JVD, No carotid bruits; No thyromegaly Lungs: Clear to auscultation, Clear to percussion, Normal respiratory effort, no accessory muscle use Cardiovascular: Heart regular in rate and rhythm, No murmurs, gallops, or rubs no peripheral edema Abdominal: Soft Nontender, nom distended, no guarding, no rebound or rigidity, Normoactive bowel sounds No hepatomegaly, No splenomegaly, No palpable mass No abdominal wall hernia noted Skin: Normal temperature, tone, texture, turgor, No induration No subcutaneous nodules, No rash, lesions, No ulcers Extremities:No digital cyanosis No clubbing, Pedal pulses intact and symmetrical Radial pulses intact and symmetrical Normal gait and station, No calf tenderness Psychiatric: Alert and oriented to person, place and time, Appropriate affect Intact judgement Neuro: Muscles Strength 5/5 in all 4 extremities, Sensation to light touch grossly present throughout, Cranial nerves II-XII grossly intact. No focal sensory deficits - Labs CBC & Chem 7: 01/18/19 06:00 01/18/19 06:00 Labs: Abnormal Lab Results - Last 24 Hours (Table) 01/16/19 01/16/19 01/16/19 Range/Units 08:37 13:10 16:47 WBC (3.8-10.6) k/uL RBC (4.30-5.90) m/uL Hgb (13.0-17.5) gm/dL Hct (39.0-53.0) % RDW (11.5-15.5) % Neutrophils # (1.3-7.7) k/uL Potassium (3.5-5.1) mmol/L Chloride 117 H (98-107) mmol/L Carbon Dioxide 16 L (22-30) mmol/L BUN 47 H (9-20) mg/dL Creatinine 1.52 H (0.66-1.25) mg/dL Glucose (74-99) mg/dL POC Glucose (mg/dL) 133 H (75-99) mg/dL Calcium 8.1 L (8.4-10.2) mg/dL Phosphorus (2.5-4.5) mg/dL Magnesium (1.6-2.3) mg/dL Iron 34 L (65-175) ug/dL TIBC 167 L (228-460) ug/dL Ferritin 679.6 H (22.0-322.0) ng/mL Crossmatch 01/16/19 01/17/19 01/17/19 Range/Units 20:35 04:19 04:19 WBC (3.8-10.6) k/uL RBC 2.30 L (4.30-5.90) m/uL Hgb 6.7 L* (13.0-17.5) gm/dL Hct 20.4 L (39.0-53.0) % RDW 17.3 H (11.5-15.5) % Neutrophils # 8.0 H (1.3-7.7) k/uL Potassium 3.0 L (3.5-5.1) mmol/L Chloride 113 H (98-107) mmol/L Carbon Dioxide 21 L (22-30) mmol/L BUN 33 H (9-20) mg/dL Creatinine (0.66-1.25) mg/dL Glucose 118 H (74-99) mg/dL POC Glucose (mg/dL) 141 H (75-99) mg/dL Calcium 7.5 L (8.4-10.2) mg/dL Phosphorus 2.3 L (2.5-4.5) mg/dL Magnesium 1.5 L (1.6-2.3) mg/dL Iron (65-175) ug/dL TIBC (228-460) ug/dL Ferritin (22.0-322.0) ng/mL Crossmatch 01/17/19 01/17/19 01/17/19 Range/Units 06:00 06:00 06:00 WBC 10.7 H (3.8-10.6) k/uL RBC 2.16 L (4.30-5.90) m/uL Hgb 6.5 L* (13.0-17.5) gm/dL Hct 19.3 L* (39.0-53.0) % RDW 17.4 H (11.5-15.5) % Neutrophils # (1.3-7.7) k/uL Potassium 3.1 L (3.5-5.1) mmol/L Chloride 113 H (98-107) mmol/L Carbon Dioxide (22-30) mmol/L BUN 33 H (9-20) mg/dL Creatinine (0.66-1.25) mg/dL Glucose 123 H (74-99) mg/dL POC Glucose (mg/dL) (75-99) mg/dL Calcium 7.5 L (8.4-10.2) mg/dL Phosphorus (2.5-4.5) mg/dL Magnesium (1.6-2.3) mg/dL Iron (65-175) ug/dL TIBC (228-460) ug/dL Ferritin (22.0-322.0) ng/mL Crossmatch See Detail 01/17/19 01/17/19 Range/Units 07:11 11:56 WBC (3.8-10.6) k/uL RBC (4.30-5.90) m/uL Hgb (13.0-17.5) gm/dL Hct (39.0-53.0) % RDW (11.5-15.5) % Neutrophils # (1.3-7.7) k/uL Potassium (3.5-5.1) mmol/L Chloride (98-107) mmol/L Carbon Dioxide (22-30) mmol/L BUN (9-20) mg/dL Creatinine (0.66-1.25) mg/dL Glucose (74-99) mg/dL POC Glucose (mg/dL) 151 H 194 H (75-99) mg/dL Calcium (8.4-10.2) mg/dL Phosphorus (2.5-4.5) mg/dL Magnesium (1.6-2.3) mg/dL Iron (65-175) ug/dL TIBC (228-460) ug/dL Ferritin (22.0-322.0) ng/mL Crossmatch Microbiology - Last 24 Hours (Table) 01/15/19 16:45 Urine Culture - Final Urine,Voided 01/15/19 17:20 Blood Culture - Preliminary Blood No Growth after 24 hours Assessment and Plan Plan: pna versus C. diff vs infected pressure ulcers with septic shock -Status post 4 L of normal saline -CXR indicating airspace opacities in the hilar area left greater than right , Urine culture no growth, blood culture pending, C. diff pending -Continue with oral vancomycin and IV Zosyn -Wean norepinephrine as able, lisinopril and Norvasc on hold -Stop IV Solu-Medrol -Critical care recommendations Toxic metabolic encephalopathy with underlying dementia -Treatment of infection above -Supportive care -Frequent reorientation Acute kidney injury with hyperkalemia and anion gap metabolic acidosis -Converted to D5W with 3 A of bicarb -Avoid additional nephrotoxic agents -Nephro recommendations appreciated -Follow renal profile Hypokalemia/Hypomagnesemia * initiate on replacement protocols Hypoglycemia with history of diabetes mellitus -Changed to dextrose containing IV fluids -Continue to follow blood sugars -Likely related to glipizide to sit still be in his system will continue to hold this Brain lesion -Records requested from [facility] -Further recommendations to follow Normocytic anemia, unknown baseline -Hg down to 6.5 - Will have 1 u pRBCs transfused today Chronic: Hypertension Dyslipidemia DVT prophylaxis: SCDs with current brain abnormality Discussed with: patient, nursing Anticipated discharge: unknown Anticipated discharge place: Likely will need SNF A total of 45 minutes was spent on the care of this complex patient more than 50% of the time was spent in counseling and care coordination.
[2019-01-17 20:57] LABS: Glucose,Whole Blood 97 mg/dL (75-99)
[2019-01-17] MEDS: TAMSULOSIN 0.4 MG CAP.ER.24H PO SCH (21:55)
[2019-01-17] MEDS: QUEtiapine 25 MG TAB PO SCH (21:55)
[2019-01-17] MEDS: ATORVASTATIN 40 MG TAB PO SCH (21:55)
--- NOTE | 2019-01-17 22:41 | P.CON ---
Consult Note - . 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 Patient was discharged to [facility] for 6 wee ks and subsequently discharged home for one day and brought in the hospital due to changes in mental status as well as weakness. Granddaughter is also power of managing attorney and seeking permanent guardianship has related to the nurses that patient developed bedsores while at the long-term. Patient is noted to have a stage II decubitus ulcer to the coccyx and stage II ulcers to the bilateral great toes. Patient also was treated at the long-term for urinary tract infection with Bactrim. Patient presented to [facility] with signs of sepsis, septic shock, acute kidney injury with metabolic acidosis. Patient was admitted into the intensive care unit on small dose of norepinephrine which is being weaned off today. He is receiving 1 unit of packed RBCs for hemoglobin of 6.5. He has multiple consultants in place including Dr. Lara for acute kidney injury, Dr. Macedo for intensive care management. Chest x-ray shows no active cardiopulmonary disease. Repeat chest x-ray reveals airspace disease within the left hilar and right IJ catheter in place. Renal ultrasound shows no hydronephrosis. CAT scan of the brain shows large elongated mass in the left suprasellar region. 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 Contrast CT could be helpful. Cerebral atrophy and chronic small vessel ischemia. Leukocytosis has improved from 19.9-10.7 as well as lactic acid from 2.2-1. Patient is currently on Zosyn and received 1 dose of vancomycin. Blood culture showing no growth after 24 hours and urine culture has been finalized with no growth. Please see the consult note is dictated by nurse practitioner Mrs. Natalie Mendez 88-year-old gentleman has an extensive recent past medical history in that he had significant worsening of his status without evidence of the large benign brain tumor he was cared for at the extended care facility and discharged home. Shortly thereafter he became weak because of the family had him transported to hospital. As noted there is evidence of hypotension and acute renal failure and acidosis at the time of his admission and constantly was brought to the intensive care unit and treated with vasopressor therapy that is now weaned. The patient is awake and alert however very communicative is extremely poor. There is evidence of the significant leukocytosis and his lactic acidosis has resolved with treatment. Antimicrobial therapy has been Zosyn and vancomycin with concerns to underlying sepsis of an undefined etiology. Patient does have urinalysis that is abnormal and culture is pending. Blood cultures are pending. He does have evidence of the pressure ulceration to the right great toe which has eschar in place is unstageable. This was present on admission. There is also the stage III pressure ulcerations on the coccyx is per the nursing documentation. These were present on admission. Will be treated with the Mepilex dressing at this time. He is on an air ICU bed. We'll continue current antibiotic therapy until further culture results are available. I agree with evaluation, assessment and plan as dictated by nurse practitioner Mrs. Natalie Mendez.
[2019-01-18] MEDS ORDERED: Potassium Replacement Protocol 1 EACH MISC MISCELLANE PRN (01:27)
[2019-01-18] MEDS: POTASSIUM CHLORIDE 10 MEQ in WATER FOR INJECTION 1 100ML.BAG IVPB SCH ×4 (02:50→15:09)
[2019-01-18 06:14] LABS: Anisocytosis Slight; Basophils # (A) 0.1 k/uL (0-0.2); Basophils % (A) 1 %; Eosinophils # (A) 0.1 k/uL (0-0.7); Eosinophils % (A) 2 %; HCT 24.4 % (39.0-53.0); HGB 7.9 gm/dL (13.0-17.5); Lymphocytes # (A) 1.5 k/uL (1.0-4.8); Lymphocytes % (A) 21 %; MCH 28.3 pg (25.0-35.0); MCHC 32.5 g/dL (31.0-37.0); Mean Platelet Volume 6.6; Monocytes # (A) 0.5 k/uL (0-1.0); Monocytes % (A) 6 %; Neutrophils # (A) 5.2 k/uL (1.3-7.7); Neutrophils % (A) 70 %; Platelet Count 182 k/uL (150-450); Poikilocytosis Slight; RBC 2.81 m/uL (4.30-5.90); RDW 16.4 % (11.5-15.5); WBC 7.4 k/uL (3.8-10.6)
[2019-01-18 06:22] LABS: Anion Gap 1 mmol/L; Blood Urea Nitrogen 18 mg/dL (9-20); Calcium 7.4 mg/dL (8.4-10.2); Carbon Dioxide 24 mmol/L (22-30); Chloride 114 mmol/L (98-107); Glucose 68 mg/dL (74-99); Magnesium 1.8 mg/dL (1.6-2.3); Sodium 139 mmol/L (137-145)
[2019-01-18 07:11] LABS: Glucose,Whole Blood 82 mg/dL (75-99)
--- NOTE | 2019-01-18 07:30 | P.PN ---
Subjective Patient is seen in follow-up for acute kidney injury. Patient's creatinine on admission was 2.59 and is down to 0.82 today. Hemoglobin is improved post blood transfusion. No active bleeding. Patient is confused. Off Levophed. Scott catheter has been removed. Urine output has been adequate. Vital signs are stable. General: The patient appeared well nourished and normally developed. HEENT: Head exam is unremarkable. Neck is without jugular venous distension. LUNGS: Breath sounds decreased. HEART: Rate and Rhythm are regular. First and second heart sounds normal. No murmurs, rubs or gallops. ABDOMEN: Abdominal exam reveals normal bowel sounds. Non-tender and non- distended. No evidence of peritonitis. EXTREMITITES: No clubbing, cyanosis, or edema. Objective - Vital Signs Vital signs: Vital Signs Temp 98.3 F 01/17/19 20:00 Pulse 80 01/18/19 06:00 Resp 12 01/18/19 06:00 BP 122/66 01/18/19 06:00 Pulse Ox 96 01/18/19 06:00 Intake & Output 01/17/19 01/18/19 01/18/19 18:59 06:59 18:59 Intake Total 2034.378 975 Output Total 790 400 Balance 1244.378 575 Intake: IV 1010 975 0.9 835 975 Dextrose 5% in Water 1, 75 000 ml @ 75 mls/hr IV . [id number] PRO with Sodium Bicarb (1 Meq/ml) 150 ml Rx#:[id number] Piperacillin-Tazobactam 3 100 .375 gm In Sodium Chloride 0.9% 100 ml @ 25 mls/hr IVPB Q12H PRO Rx# :[id number] Intake, IV Titration 304.378 Amount Magnesium Sulfate-D5w Pmx 200 1 gm In Dextrose/Water 1 100ml.bag @ 100 mls/hr IVPB Q1H PRO Rx#: [id number] Norepinephrine 4 mg In 104.378 Sodium Chloride 0.9% 250 ml @ 0.05 MCG/KG/MIN 13. 739 mls/hr IV .[id number] PRO Rx#:[id number] Oral 100 Blood Product 620 Rc As-1 Unit 310 [id number] Output: Urine 790 400 Other: Voiding Method Indwelling Catheter Indwelling Catheter # Voids 0 1 - Labs CBC & Chem 7: 01/18/19 06:00 01/18/19 06:00 Labs: Abnormal Lab Results - Last 24 Hours (Table) 01/17/19 01/17/19 01/17/19 Range/Units 06:00 11:56 15:30 WBC 11.4 H (3.8-10.6) k/uL RBC 2.99 L (4.30-5.90) m/uL Hgb 8.6 L D (13.0-17.5) gm/dL Hct 26.1 L (39.0-53.0) % RDW 16.5 H (11.5-15.5) % Neutrophils # 8.7 H (1.3-7.7) k/uL Chloride (98-107) mmol/L Glucose (74-99) mg/dL POC Glucose (mg/dL) 194 H (75-99) mg/dL Calcium (8.4-10.2) mg/dL Crossmatch See Detail 01/18/19 01/18/19 Range/Units 06:00 06:00 WBC (3.8-10.6) k/uL RBC 2.81 L (4.30-5.90) m/uL Hgb 7.9 L (13.0-17.5) gm/dL Hct 24.4 L (39.0-53.0) % RDW 16.4 H (11.5-15.5) % Neutrophils # (1.3-7.7) k/uL Chloride 114 H (98-107) mmol/L Glucose 68 L (74-99) mg/dL POC Glucose (mg/dL) (75-99) mg/dL Calcium 7.4 L (8.4-10.2) mg/dL Crossmatch Microbiology - Last 24 Hours (Table) 01/17/19 17:19 Gram Stain - Preliminary Other - Other Wound Culture - Preliminary 01/17/19 17:19 Anaerobic Culture - Preliminary Penis 01/15/19 17:20 Blood Culture - Preliminary Blood No Growth after 48 hours Assessment and Plan Plan: Assessment: 1. Acute kidney injury mostly prerenal secondary to hypotension/septic shock. Creatinine was 2.59 on admission and is 0.8 to today. No evidence of hydronephrosis noted on renal ultrasound. 2. Metabolic acidosis secondary to acute kidney injury and IV fluids. Better. 3. Hyperkalemia secondary to acute kidney injury and metabolic acidosis. Patient was also on lisinopril outpatient. Then became hypokalemic as renal function was recovering and also from intracellular shifting from IV bicarb. Better. 4. Diabetes mellitus. 5. Acute blood loss anemia. Scheduled to receive 1 unit of blood yesterday. Better. 6. Septic shock. Source likely being UTI. Currently off Levophed. 7. Left brain mass. 8. Hypomagnesemia from poor oral intake. Status post placement. Better. Plan: I will decrease rate of normal saline to 60 mL an hour. Will hep-Lock as oral intake improves. Decrease dose of oral sodium bicarbonate once daily.
[2019-01-18] MEDS: INSULIN ASPART (NovoLOG) 100 UNIT/ML VIAL SQ SCH ×4 (08:05→20:49)
[2019-01-18] MEDS: SODIUM CHLORIDE 0.9% 1,000 ML IV SCH ×2 (08:09→10:15)
--- NOTE | 2019-01-18 08:27 | XR ---
EXAMINATION TYPE: XR chest 1V portable DATE OF EXAM: 01/18/2019 COMPARISON: 01/15/2019 INDICATION: Effusion TECHNIQUE: Single frontal view of the chest is obtained. FINDINGS: The heart size is normal. The pulmonary vasculature is normal. The lungs are clear. No suspicious pleural effusions are evident. Catheter is on the right with the tip in the right atrium. IMPRESSION: 1. No acute pulmonary process.
[2019-01-18] MEDS: NOREPINEPHRINE 4 MG in SODIUM CHLORIDE 0.9% 250 ML IV SCH (08:33)
[2019-01-18] MEDS: ENOXAPARIN 40 MG/0.4 ML SYRINGE SQ SCH (08:41)
[2019-01-18] MEDS: SODIUM BICARBONATE TAB 650 MG TAB PO SCH (08:41)
[2019-01-18] MEDS: PANTOPRAZOLE 40 MG/10 ML VIAL IV SCH (08:41)
[2019-01-18] MEDS: BACITRACIN 500 UNIT/GM OINT 28.4 GM TUBE TOPICAL SCH ×2 (08:42→20:11)
--- NOTE | 2019-01-18 09:07 | ECHOF ---
Referral Reason:hypotension MEASUREMENTS -------- HEIGHT: 175.3 cm WEIGHT: 68.5 kg BP: 122/66 RVIDd: 3.0 cm (< 3.3) IVSd: 1.1 cm (0.6 - 1.1) LVIDd: 4.3 cm (3.9 - 5.3) LVPWd: 1.1 cm (0.6 - 1.1) IVSs: 1.6 cm LVIDs: 2.8 cm LVPWs: 1.5 cm LA Diam: 2.9 cm (2.7 - 3.8) LAESV Index (A-L): 21.50 ml/m Ao Diam: 2.6 cm (2.0 - 3.7) MV EXCURSION: 14.577 mm (> 18.000) MV EF SLOPE: 36 mm/s (70 - 150) EPSS: 0.9 cm MV E Sidney: 0.81 m/s MV DecT: 310 ms MV A Sidney: 1.12 m/s MV E/A Ratio: 0.73 AV maxP.27 mmHg AV meanP.99 mmHg RAP: 5.00 mmHg RVSP: 39.29 mmHg FINDINGS -------- Sinus rhythm. This was a technically adequate study. The left ventricular size is normal. There is borderline concentric left ventricular hypertrophy. Overall left ventricular systolic function is normal with, an EF between 60 - 65 %. The right ventricle is normal in size. Normal LA size by volume 22+/-6 ml/m2. The right atrium is normal in size. Interatrial and interventricular septum intact. There is mild to moderate aortic valve sclerosis. There is mild aortic stenosis present. Peak/radha n gradient across the Aortic Valve is 37.27mmHg / 18.99mmHg. The mitral valve leaflets are mildly thickened. Moderate mitral annular calcification present. Mi ld mitral regurgitation is present. Mild tricuspid regurgitation present. There is mild pulmonary hypertension. The right ventricular systolic pressure, as measured by Doppler, is 39.29mmHg. The pulmonic valve was not well visualized. The aortic root size is normal. Normal inferior vena cava with normal inspiratory collapse consistent with estimated right atrial pre ssure of 5 mmHg. There is no pericardial effusion. CONCLUSIONS -------- 1. Sinus rhythm. 2. This was a technically adequate study. 3. The left ventricular size is normal. 4. There is borderline concentric left ventricular hypertrophy. 5. Overall left ventricular systolic function is normal with, an EF between 60 - 65 %. 6. The right ventricle is normal in size. 7. Normal LA size by volume 22+/-6 ml/m2. 8. The right atrium is normal in size. 9. Interatrial and interventricular septum intact. 10. There is mild to moderate aortic valve sclerosis. 11. There is mild aortic stenosis present. 12. Peak/mean gradient across the Aortic Valve is 37.27mmHg / 18.99mmHg. 13. The mitral valve leaflets are mildly thickened. 14. Moderate mitral annular calcification present. 15. Mild mitral regurgitation is present. 16. Mild tricuspid regurgitation present. 17. There is mild pulmonary hypertension. 18. The right ventricular systolic pressure, as measured by Doppler, is 39.29mmHg. 19. The pulmonic valve was not well visualized. 20. The aortic root size is normal. 21. Normal inferior vena cava with normal inspiratory collapse consistent with estimated right atrial pressure of 5 mmHg. 22. There is no pericardial effusion. FIRST MATE: Mela Ray RDCS
[2019-01-18 09:46] VITALS: BMI 22.5
[2019-01-18] MEDS ORDERED: Magnesium Replacement Protocol 1 EACH MISC MISCELLANE PRN (10:16)
[2019-01-18] MEDS: PIPERACILLIN-TAZOBACTAM 3.375 GM in SODIUM CHLORIDE 0.9% 100 ML IVPB SCH ×2 (10:32→21:07)
[2019-01-18] MEDS: MAGNESIUM SULFATE-D5W PMX 1 GM in DEXTROSE/WATER 1 100ML.BAG IVPB SCH ×2 (10:33→12:32)
[2019-01-18] MEDS ORDERED: POLYETHYLENE GLYCOL 3350 17 GM POWD.PACK PO STA (10:49)
--- NOTE | 2019-01-18 10:49 | P.PN ---
Subjective Progress Note Date: 01/18/19 Principal diagnosis: Patient is an 88-year-old male past medical history of brain tumor, diabetes, dyslipidemia, hypertension, and dementia who was sent to the ER from Dr. Bellamy's office due to lethargy and decreased responsiveness. 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 He has recently been at [facility] where he spent 6 weeks for rehab. Apparently he developed bedsores and had a urinary tract infection, he had a Scott catheter which has since been discontinued, and he was discharged home on 01/14 with Bactrim. Granddaughter noticed that he was increasingly sleepy, weak, and developed diarrhea. She took him to Dr. Bellamy's office and subsequently here. In the ER he underwent an extensive evaluation. His don't have a low blood pressure of 93/74 on admission but his vital signs were otherwise stable. Initial laboratory analysis showed white blood cell count of 19.9, hemoglobin 8, lactic acid 5.1, potassium 5.5, CO2 19, and creatinine 2.59. UA showed possible infection is currently undergoing treatment. Head CT showed a suprasellar mass but no signs of hydrocephalus. Chest x-ray was unremarkable. Patient remained hypotensive despite IV fluid administration and subsequently a right IJ central line was placed. Patient was started on norepinephrine and has subsequently been admitted to the ICU. Patient seen and examined and follow-up is doing well he is awake alert oriented only to self, doing well with his dysphagia diet nursing reporting constipation no bowel movements for a few days a leukocytosis has resolved patient continues to be afebrile. Hemoglobin is improved to approximately 8 posttransfusion 1 unit of packed RBCs, patient continues on antibiotics with Zosyn And has been off of IV pressors since early this morning. Otherwise no acute events overnight Objective - Vital Signs Vital signs: Vital Signs Temp 97.9 F 01/18/19 08:00 Pulse 75 01/18/19 10:00 Resp 17 01/18/19 10:00 BP 132/108 01/18/19 10:00 Pulse Ox 96 01/18/19 10:00 Intake & Output 01/17/19 01/18/19 01/18/19 18:59 06:59 18:59 Intake Total 2034.378 975 280 Output Total 790 400 Balance 1244.378 575 280 Weight 69.2 kg 69.2 kg Intake: IV 1010 975 180 0.9 835 975 180 Dextrose 5% in Water 1, 75 000 ml @ 75 mls/hr IV . [id number] PRO with Sodium Bicarb (1 Meq/ml) 150 ml Rx#:[id number] Piperacillin-Tazobactam 3 100 .375 gm In Sodium Chloride 0.9% 100 ml @ 25 mls/hr IVPB Q12H [facility] Rx# :[id number] Intake, IV Titration 304.378 Amount Magnesium Sulfate-D5w Pmx 200 1 gm In Dextrose/Water 1 100ml.bag @ 100 mls/hr IVPB Q1H [facility] Rx#: [id number] Norepinephrine 4 mg In 104.378 Sodium Chloride 0.9% 250 ml @ 0.05 MCG/KG/MIN 13. 739 mls/hr IV .[id number] [facility] Rx#:[id number] Oral 100 100 Blood Product 620 Rc As-1 Unit 310 [id number] Output: Urine 790 400 Other: Voiding Method Indwelling Catheter Indwelling Catheter Urinal Incontinent # Voids 0 1 - Exam Constitutional: No acute distress, conversant, pleasant Eyes: Anicteric sclerae, moist conjunctiva, no lid-lag, PERRLA ENMT: NC/AT,Oropharynx clear, no erythema, exudates Neck:Supple, FROM, no masses, or JVD, No carotid bruits; No thyromegaly Lungs: Clear to auscultation, Clear to percussion, Normal respiratory effort, no accessory muscle use Cardiovascular: Regular rate and rhythm Holosystolic murmur, , gallops, or rubs no peripheral edema Abdominal: Soft Nontender, nom distended, no guarding, no rebound or rigidity, Normoactive bowel sounds No hepatomegaly, No splenomegaly, No palpable mass No abdominal wall hernia noted Skin: Ulcer bilateral great toes with onychomycosis Extremities: Lower extremity waffle boots Psychiatric: Awake and alert and oriented to self Neuro: Muscles Strength 5/5 in all 4 extremities, Sensation to light touch grossly present throughout, Cranial nerves II-XII grossly intact. No focal sensory deficits - Labs CBC & Chem 7: 01/18/19 06:00 01/18/19 06:00 Labs: Abnormal Lab Results - Last 24 Hours (Table) 01/17/19 01/17/19 01/17/19 Range/Units 06:00 11:56 15:30 WBC 11.4 H (3.8-10.6) k/uL RBC 2.99 L (4.30-5.90) m/uL Hgb 8.6 L D (13.0-17.5) gm/dL Hct 26.1 L (39.0-53.0) % RDW 16.5 H (11.5-15.5) % Neutrophils # 8.7 H (1.3-7.7) k/uL Chloride (98-107) mmol/L Glucose (74-99) mg/dL POC Glucose (mg/dL) 194 H (75-99) mg/dL Calcium (8.4-10.2) mg/dL Crossmatch See Detail 01/18/19 01/18/19 Range/Units 06:00 06:00 WBC (3.8-10.6) k/uL RBC 2.81 L (4.30-5.90) m/uL Hgb 7.9 L (13.0-17.5) gm/dL Hct 24.4 L (39.0-53.0) % RDW 16.4 H (11.5-15.5) % Neutrophils # (1.3-7.7) k/uL Chloride 114 H (98-107) mmol/L Glucose 68 L (74-99) mg/dL POC Glucose (mg/dL) (75-99) mg/dL Calcium 7.4 L (8.4-10.2) mg/dL Crossmatch Microbiology - Last 24 Hours (Table) 01/17/19 17:19 Gram Stain - Preliminary Other - Other Wound Culture - Preliminary 01/17/19 17:19 Anaerobic Culture - Preliminary Penis 01/15/19 17:20 Blood Culture - Preliminary Blood No Growth after 48 hours Assessment and Plan Plan: C. diff vs infected pressure ulcers with septic shock -Status post 4 L of normal saline -CXR indicating no acute pulmonary process today -Continue with IV Zosyn -levophed has been weaned off -Stop IV Solu-Medrol -Critical care recommendations Toxic metabolic encephalopathy with underlying dementia -Treatment of infection above -Supportive care -Frequent reorientation Acute kidney injury with hyperkalemia and anion gap metabolic acidosis * Resolved creatinine now 0.8 down from 2.6 * Scott catheter has been discontinued -Converted to D5W with 3 A of bicarb -Avoid additional nephrotoxic agents -Nephro recommendations appreciated -Follow renal profile Hypokalemia/Hypomagnesemia * continue on replacement protocols Constipation * Initiated daily MiraLAX regimen Hypoglycemia with history of diabetes mellitus -Changed to dextrose containing IV fluids -Continue to follow blood sugars -Likely related to glipizide to sit still be in his system will continue to hold this Brain lesion -Records requested from [facility] -Further recommendations to follow Normocytic anemia, unknown baseline -Hg up to 8g today post 1 U pRBCs transfused 01/17 Chronic: Hypertension Dyslipidemia DVT prophylaxis: SCDs with current brain abnormality Discussed with: patient, nursing Anticipated discharge: Stable for transfer to the medical floor 1-[address]: Likely will need SNF A total of 45 minutes was spent on the care of this complex patient more than 50% of the time was spent in counseling and care coordination.
[2019-01-18 12:42] LABS: Glucose,Whole Blood 153 mg/dL (75-99)
--- NOTE | 2019-01-18 13:33 | P.PN ---
Subjective Progress Note Date: 01/18/19 A 88-year-old male patient, a poor historian, known history of brain cancer and dementia in addition to various other comorbidities such as hypertension and diabetes mellitus who was transferred to a hospital for diminished level of consciousness on top of his chronic problems in addition to weakness and diarrhea. 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 The patient was discharged to [facility] obviated for further rehabilitation when he spent the total of 6 weeks. During his stay, the patient developed some bedsores and he also developed a UTI. He was given Bactrim for a total of 5 days and he was discharged from the medical [place] on 01/14/2019. The patient was subsequently admitted to RICU because of diminished level of consciousness, hypotension, dehydration and sepsis and he is told to have an underlying urine infection. He came into the hospital and in the emergency was a very pleasant historian. Information was taken mainly from his granddaughter. His UA was consistent with infection. His creatinine was at 2.5. His lactic acid was at 5.1. His white cell count was at 19.9. Troponin was 0.018. A triple lumen catheter was inserted in the emergency and the patient was started on fluid resuscitation. CAT scan of the brain was done that showed a CHIEF BUSINESS OFFICER mass suprasellar without any evidence of herniation. EKG was consistent with a sinus rhythm with a bundle- branch block pattern. Overnight, the patient was given IV fluids and earlier this morning he was switched a bicarb drip placed on the presence of an underlying non-anion gap metabolic acidosis. Antibiotic coverage is IV Zosyn. The patient showed improvement in his lactic acid level. The lactate has dropped down to 1 and the creatinine is dropped down to 1.52 and the patient is producing urine output. The urine culture is still pending for now. Neurologically, he remains a very poor historian. He is moving all 4 extremities. He has an extremely dry mucous membranes. He is able to swallow based on a bedside evaluation. He has a stage II coccygeal sore and stage I ulceration over the right and left great toe. The white cell count is also improving. The chest x-ray anteriorly. The chest x-ray showing airspace disease within the left hilar and right IJ catheter in place in the right atrium. On 01/17/2019 I'm seeing this patient for a follow-up. The patient is alert and awake. He is confused and this is related to his underlying dementia. He is still on pressors although the pressor doses improved compared to yesterday and was running levo fed at a lower rate for hemodynamic support. He is receiving levo fed at the rate of 4 g per minute. He got transfused with a unit of packed RBC and hemoglobin is up to 8.6. Hemoglobin earlier was at 6.5. White cell count is not elevated. Renal function is normalized. Lactic acid level is normalized. Blood cultures negative thus far. Urine cultures also negative. The patient remains on a combination of Zosyn and vancomycin. The patient was receiving bicarb infusion and the bicarb level is also normalized. No nausea. No vomiting. No diarrhea. No aspiration. On 01/18/2019, the patient is off pressors. He is awake and alert. Hemodynamically stable. Currently on IV Zosyn. Hemoglobin is stable. Producing adequate amount of urine output. On IV fluids with normal state rate of 60 and hour. He is on Lovenox for DVT prophylaxis. He is tolerating his diet. Bedside swallow evaluation was done which she passed. No other significant events overnight. The patient will be moved to a medical surgical unit. Objective - Vital Signs Vital signs: Vital Signs Temp 97.7 F 01/18/19 12:00 Pulse 69 01/18/19 13:00 Resp 14 01/18/19 13:00 BP 104/79 01/18/19 13:00 Pulse Ox 98 01/18/19 13:00 Intake & Output 01/17/19 01/18/19 01/18/19 18:59 06:59 18:59 Intake Total 2034.378 975 460 Output Total 790 400 Balance 1244.378 575 460 Weight 69.2 kg 69.2 kg Intake: IV 1010 975 360 0.9 835 975 360 Dextrose 5% in Water 1, 75 000 ml @ 75 mls/hr IV . [id number] PRO with Sodium Bicarb (1 Meq/ml) 150 ml Rx#:[id number] Piperacillin-Tazobactam 3 100 .375 gm In Sodium Chloride 0.9% 100 ml @ 25 mls/hr IVPB Q12H PRO Rx# :[id number] Intake, IV Titration 304.378 Amount Magnesium Sulfate-D5w Pmx 200 1 gm In Dextrose/Water 1 100ml.bag @ 100 mls/hr IVPB Q1H PRO Rx#: [id number] Norepinephrine 4 mg In 104.378 Sodium Chloride 0.9% 250 ml @ 0.05 MCG/KG/MIN 13. 739 mls/hr IV .[id number] PRO Rx#:[id number] Oral 100 100 Blood Product 620 Rc As-1 Unit 310 [id number] Output: Urine 790 400 Other: Voiding Method Indwelling Catheter Indwelling Catheter Urinal Incontinent # Voids 0 1 1 # Bowel Movements 1 - Exam General: elderly i, no distress, appears at stated age, normal weight, nonacute respiratory distress. No agitation. Calm and comfortable. Derm: L great toe likely gangrene, warm, dry Head: atraumatic, normocephalic, symmetric Eyes: EOMI, no lid lag, anicteric sclera, pupils equal round reactive to light ENT: Nose and ears atraumatic, no thrush, no pharyngeal erythema, extremely dry mucous membranes. Neck: No thyromegaly, no cervical lymphadenopathy, trachea midline, supple Mouth: no lip lesion, mucus membranes moist Cardiovascular: S1S2 reg, systolic ejection murmur grade 4/6 heard throughout the precordium radiating to the neck. This is mainly appreciated in the left lateral sternal border hours apex., positive posterior tibial pulse bilateral, no edema, capillary refill less than 2 seconds Lungs: CTA bilateral, no rhonchi, no rales , no accessory muscle use Abdominal: soft, nontender to palpation, no guarding, no appreciable organomegaly, normal bowel sounds Ext: no gross muscle atrophy, muscle strength 3 out of 5 in all 4 extremities grossly, no contractures, Neuro: Not following all commands, examination limited, moving all 4 extremities without any limitation. Neurologic exam is nonfocal. No facial asymmetry. Pupils are equal and reactive to light. Psych: Awake, not oriented to self, place, or time - Labs CBC & Chem 7: 01/18/19 06:00 01/18/19 06:00 Labs: Abnormal Lab Results - Last 24 Hours (Table) 01/17/19 01/18/19 01/18/19 Range/Units 15:30 06:00 06:00 WBC 11.4 H (3.8-10.6) k/uL RBC 2.99 L 2.81 L (4.30-5.90) m/uL Hgb 8.6 L D 7.9 L (13.0-17.5) gm/dL Hct 26.1 L 24.4 L (39.0-53.0) % RDW 16.5 H 16.4 H (11.5-15.5) % Neutrophils # 8.7 H (1.3-7.7) k/uL Chloride 114 H (98-107) mmol/L Glucose 68 L (74-99) mg/dL POC Glucose (mg/dL) (75-99) mg/dL Calcium 7.4 L (8.4-10.2) mg/dL 01/18/19 Range/Units 12:30 WBC (3.8-10.6) k/uL RBC (4.30-5.90) m/uL Hgb (13.0-17.5) gm/dL Hct (39.0-53.0) % RDW (11.5-15.5) % Neutrophils # (1.3-7.7) k/uL Chloride (98-107) mmol/L Glucose (74-99) mg/dL POC Glucose (mg/dL) 153 H (75-99) mg/dL Calcium (8.4-10.2) mg/dL Microbiology - Last 24 Hours (Table) 01/17/19 17:19 Gram Stain - Preliminary Other - Other Wound Culture - Preliminary 01/17/19 17:19 Anaerobic Culture - Preliminary Penis 01/15/19 17:20 Blood Culture - Preliminary Blood No Growth after 48 hours Assessment and Plan Plan: 1 sepsis/hypotension likely secondary to underlying UTI, consider gram-negative infection. The patient is improved significantly. The patient is running at a lower pressors rate. Nevertheless the workup including the blood and urine cultures of been negative thus far. Clinically however, the patient is improving. 2 acute kidney injury improving renal function is normalized. 3 acute lactic acidosis and leukocytosis, improving 4 dehydration, recovered 5 non-anion gap metabolic acidosis currently on a bicarb drip, the acidosis recovered 6 hyperkalemia, improved 7 brain mass/tumor evaluated at [facility] by neurosurgery and the patient is being considered for a [employer] DEVELOPER shunt forhydrocephalus. 8 diabetes mellitus 9 hypertension 10 hyperlipidemia 11 dementia 12 cardiac murmur awaiting an echocardiogram, consider aortic valve stenosis. The echocardiogram showed a borderline LVH, EF of around 6065%, mild aortic stenosis, mild pulmonary hypertension with a PA pressure of 39. 13 chronic normocytic anemia stable for now, the patient got transfused with a unit of packed RBC and hemoglobin improved posttransfusion and volume is up to 7.9. Plan Switch this patient on normal saline at the rate of 60 mL an hour. Discontinue the vancomycin. Continue IV Zosyn. Patient is currently off pressors. Echocardiogram was noted and there is only mild aortic stenosis. Preserved LV function. Doing well. No aspiration. Chance for to medical surgical floor.
[2019-01-18 17:06] LABS: Glucose,Whole Blood 101 mg/dL (75-99)
[2019-01-18] MEDS: QUEtiapine 25 MG TAB PO SCH (20:10)
[2019-01-18] MEDS: TAMSULOSIN 0.4 MG CAP.ER.24H PO SCH (20:10)
[2019-01-18] MEDS: ATORVASTATIN 40 MG TAB PO SCH (20:10)
[2019-01-18 20:43] LABS: Glucose,Whole Blood 112 mg/dL (75-99)
[2019-01-19] MEDS: SODIUM CHLORIDE 0.9% 1,000 ML IV SCH ×2 (04:52→22:41)
[2019-01-19 07:07] LABS: Glucose,Whole Blood 72 mg/dL (75-99)
[2019-01-19] MEDS: INSULIN ASPART (NovoLOG) 100 UNIT/ML VIAL SQ SCH ×4 (08:26→22:42)
[2019-01-19] MEDS: PIPERACILLIN-TAZOBACTAM 3.375 GM in SODIUM CHLORIDE 0.9% 100 ML IVPB SCH ×2 (09:25→22:44)
[2019-01-19] MEDS: ENOXAPARIN 40 MG/0.4 ML SYRINGE SQ SCH (09:25)
[2019-01-19] MEDS: PANTOPRAZOLE 40 MG TABLET PO SCH (09:25)
[2019-01-19] MEDS: POLYETHYLENE GLYCOL 3350 17 GM POWD.PACK PO SCH (09:25)
[2019-01-19] MEDS: SODIUM BICARBONATE TAB 650 MG TAB PO SCH (09:25)
[2019-01-19] MEDS: BACITRACIN 500 UNIT/GM OINT 28.4 GM TUBE TOPICAL SCH ×2 (10:15→22:42)
[2019-01-19 12:03] LABS: Glucose,Whole Blood 84 mg/dL (75-99)
--- NOTE | 2019-01-19 13:23 | P.PN ---
Subjective Progress Note Date: 01/19/19 Principal diagnosis: Sepsis Patient was seen and examined. No acute events overnight. No clear communication but able to follow commands. Denying any pain at this time. Objective - Vital Signs Vital signs: Vital Signs Temp 97.8 F 01/19/19 05:38 Pulse 81 01/19/19 05:38 Resp 14 01/19/19 05:38 BP 128/72 01/19/19 05:38 Pulse Ox 97 01/19/19 05:38 Intake & Output 01/18/19 01/19/19 01/19/19 18:59 06:59 18:59 Intake Total 1020 1010 Balance 1020 1010 Weight 69.2 kg Intake: IV 920 280 0.9 420 180 Magnesium Sulfate-D5w Pmx 200 1 gm In Dextrose/Water 1 100ml.bag @ 100 mls/hr IVPB Q1H [facility] Rx#: [id number] Piperacillin-Tazobactam 3 100 100 .375 gm In Sodium Chloride 0.9% 100 ml @ 25 mls/hr IVPB Q12H [facility] Rx# :[id number] Potassium Chloride 10 meq 200 In Water For Injection 1 100ml.bag @ 100 mls/hr IVPB Q1H [facility] Rx#: [id number] Intake, IV Titration 480 Amount Sodium Chloride 0.9% 1, 480 000 ml @ 60 mls/hr IV . [id number] [facility] Rx#:[id number] Oral 100 250 Other: Voiding Method Urinal Urinal Incontinent Incontinent Incontinent # Voids 1 2 1 # Bowel Movements 1 - Exam General: [non toxic], [no distress], [appears at stated age] Derm: [warm], [dry] Head: [atraumatic], [normocephalic], [symmetric] Eyes: [EOMI], [no lid lag], [anicteric sclera] Mouth: [no lip lesion], [mucus membranes moist] Cardiovascular: [S1S2 reg], [holosystolic murmur] Lungs: [CTA bilateral], [no rhonchi, no rales] , [no accessory muscle use] Abdominal: [soft], [ nontender to palpation], [no guarding], [no appreciable organomegaly] Ext: [no gross muscle atrophy], [no edema], [air boots, eschar over bilateral total] Neuro: [no focal neuro deficits] Psych: [Cannot communicate effectively] - Labs CBC & Chem 7: 01/18/19 06:00 01/19/19 07:11 Labs: Abnormal Lab Results - Last 24 Hours (Table) 01/18/19 01/18/19 01/19/19 Range/Units 16:54 20:32 07:05 POC Glucose (mg/dL) 101 H 112 H 72 L (75-99) mg/dL Microbiology - Last 24 Hours (Table) 01/17/19 17:19 Gram Stain - Preliminary Other - Other Wound Culture - Preliminary Gram Neg Bacilli 01/15/19 17:20 Blood Culture - Preliminary Blood No Growth after 72 hours Assessment and Plan Assessment: Assessment and Plan Sepsis likely secondary to UTI, gram-negative infection Toxic metabolic encephalopathy with underlying dementia Acute kidney injury Lactic acidosis Non-gap metabolic acidosis Anemia Brain tumor Diabetes mellitus Hypertension Hyperlipidemia Patient initially met septic criteria on admission (leukocytosis of 19.9, hypotensive BP 81/59, HR > 90, lactic acid 5.1, UTI as source of infection). Started on Levophed and SoulMedrol, off since 01/18/2019. Chest x-ray shows no acute disease. Urinalysis shows moderate leukocyte esterase, partially treated in the outpatient setting. Blood cultures preliminary negative at 72 hours. Urine cultures negative. Wound culture growing gram-negative bacilli. Plan: Continue Zosyn IV. Continue normal saline at 60 mL per hour. Follow wound cultures. Follow blood cultures. Follow C. diff. ID recommendations. History of brain tumor, underlying dementia worsened with sepsis. Plan: Continue IV antibiotics. Continue Seroquel. Frequent redirection. Window side bed. Neurochecks. Creatinine on admission 2.59. BUN and creatinine within normal limits today. Likely due to dehydration. Renal ultrasound shows no hydronephrosis. Plan: Continue IVF as above. Avoid nephrotoxins. Daily BMP. Follow nephrology recommendations. Lactic acid from 5.1-2.2- within normal limits. Possibly related to dehydration with component of sepsis. Plan: Resolved. Continue IVF as above. Bicarbonate from 19-within normal limits. Normal anion gap. Likely secondary to lactic acidosis, acute kidney injury and possible sepsis. Initially on bicarbonate drip, now discontinued. Plan: Continue sodium bicarbonate. Continue IVF as above. Hemoglobin 7.9, normocytic. Post 1 unit PRBC on 01/17/2019. Iron studies show anemia of chronic disease. Plan: Daily CBC. Transfuse if hemoglobin less than 7. Follow FOBT. Lovenox discontinued in light of anemia. 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 Plan: Follow-up at [place]. Follow PTOT and speech therapy. Neurochecks. Hxyrv-[id number] glucose 84. Plan: Insulin sliding scale. Hypoglycemic precautions. Regular Accu-Cheks. Hold glipizide for hypoglycemia. BP 128/72. On lisinopril at home. 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 Monitor vitals, adjust medications as necessary. Plan: Continue Lipitor. DVT prophylaxis: [SCD boots] Discussed with: [Patient] Anticipated discharge: [1-2 days] Anticipated discharge place: [SNF] A total of [45] minutes was spent on the care of this complex patient more than 50% of the time was spent in counseling and care coordination. Patient admitted for metabolic encephalopathy likely secondary to sepsis. Initially on pressors now discontinued. He continues to be on Zosyn IV with infectious disease on board and cultures pending. Found to be progressively anemic, post 1 PRBC, FOBT pending.
[2019-01-19 13:29] LABS: Anion Gap 2 mmol/L; Blood Urea Nitrogen 12 mg/dL (9-20); Calcium 7.7 mg/dL (8.4-10.2); Carbon Dioxide 23 mmol/L (22-30); Chloride 113 mmol/L (98-107); Glucose 67 mg/dL (74-99); Potassium 4.6 mmol/L (3.5-5.1); Sodium 138 mmol/L (137-145)
[2019-01-19 13:34] LABS: Anisocytosis Slight; Basophils % (A) 1 %; Eosinophils # (A) 0.2 k/uL (0-0.7); Eosinophils % (A) 2 %; HCT 26.5 % (39.0-53.0); HGB 8.4 gm/dL (13.0-17.5); Hypochromasia Slight; Lymphocytes # (A) 1.6 k/uL (1.0-4.8); Lymphocytes % (A) 23 %; MCH 28.5 pg (25.0-35.0); MCHC 31.8 g/dL (31.0-37.0); MCV 89.5 fL (80.0-100.0); Mean Platelet Volume 7.3; Monocytes # (A) 0.4 k/uL (0-1.0); Monocytes % (A) 5 %; Neutrophils # (A) 4.8 k/uL (1.3-7.7); Neutrophils % (A) 68 %; Platelet Count 180 k/uL (150-450); Poikilocytosis Slight; RBC 2.96 m/uL (4.30-5.90); RDW 16.6 % (11.5-15.5)
--- NOTE | 2019-01-19 14:35 | P.PN ---
Subjective Progress Note Date: 01/19/19 A 88-year-old male patient, a poor historian, known history of brain cancer and dementia in addition to various other comorbidities such as hypertension and diabetes mellitus who was transferred to a hospital for diminished level of consciousness on top of his chronic problems in addition to weakness and diarrhea. 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 The patient was discharged to [facility] obviated for further rehabilitation when he spent the total of 6 weeks. During his stay, the patient developed some bedsores and he also developed a UTI. He was given Bactrim for a total of 5 days and he was discharged from the medical [place] on 01/14/2019. The patient was subsequently admitted to RICU because of diminished level of consciousness, hypotension, dehydration and sepsis and he is told to have an underlying urine infection. He came into the hospital and in the emergency was a very pleasant historian. Information was taken mainly from his granddaughter. His UA was consistent with infection. His creatinine was at 2.5. His lactic acid was at 5.1. His white cell count was at 19.9. Troponin was 0.018. A triple lumen catheter was inserted in the emergency and the patient was started on fluid resuscitation. CAT scan of the brain was done that showed a QUALITY TESTER mass suprasellar without any evidence of herniation. EKG was consistent with a sinus rhythm with a bundle- branch block pattern. Overnight, the patient was given IV fluids and earlier this morning he was switched a bicarb drip placed on the presence of an underlying non-anion gap metabolic acidosis. Antibiotic coverage is IV Zosyn. The patient showed improvement in his lactic acid level. The lactate has dropped down to 1 and the creatinine is dropped down to 1.52 and the patient is producing urine output. The urine culture is still pending for now. Neurologically, he remains a very poor historian. He is moving all 4 extremities. He has an extremely dry mucous membranes. He is able to swallow based on a bedside evaluation. He has a stage II coccygeal sore and stage I ulceration over the right and left great toe. The white cell count is also improving. The chest x-ray anteriorly. The chest x-ray showing airspace disease within the left hilar and right IJ catheter in place in the right atrium. On 01/17/2019 I'm seeing this patient for a follow-up. The patient is alert and awake. He is confused and this is related to his underlying dementia. He is still on pressors although the pressor doses improved compared to yesterday and was running levo fed at a lower rate for hemodynamic support. He is receiving levo fed at the rate of 4 g per minute. He got transfused with a unit of packed RBC and hemoglobin is up to 8.6. Hemoglobin earlier was at 6.5. White cell count is not elevated. Renal function is normalized. Lactic acid level is normalized. Blood cultures negative thus far. Urine cultures also negative. The patient remains on a combination of Zosyn and vancomycin. The patient was receiving bicarb infusion and the bicarb level is also normalized. No nausea. No vomiting. No diarrhea. No aspiration. On 01/18/2019, the patient is off pressors. He is awake and alert. Hemodynamically stable. Currently on IV Zosyn. Hemoglobin is stable. Producing adequate amount of urine output. On IV fluids with normal state rate of 60 and hour. He is on Lovenox for DVT prophylaxis. He is tolerating his diet. Bedside swallow evaluation was done which she passed. No other significant events overnight. The patient will be moved to a medical surgical unit. On 01/19/2019, the patient is on a medical floor. He was transferred out of the intensive care unit yesterday. Awake. Alert. No complaints. No chest pain. No shortness of breath. Mental status remains unchanged. His underlying dementia and episodic confusion. Is tolerating his diet. Hemodynamically stable. Note that he was on pressors while his stay in the ICU and currently is off pressors. He remains on IV Zosyn. He remains on his NovoLog sliding scale coverage. He is on IV fluids at 60 mL an hour, and the patient has a penile lesion/ulcerative being monitored. Objective - Vital Signs Vital signs: Vital Signs Temp 97.8 F 01/19/19 05:38 Pulse 81 01/19/19 05:38 Resp 14 01/19/19 05:38 BP 128/72 01/19/19 05:38 Pulse Ox 97 01/19/19 05:38 Intake & Output 01/18/19 01/19/19 01/19/19 18:59 06:59 18:59 Intake Total 1020 1010 Balance 1020 1010 Weight 69.2 kg Intake: IV 920 280 0.9 420 180 Magnesium Sulfate-D5w Pmx 200 1 gm In Dextrose/Water 1 100ml.bag @ 100 mls/hr IVPB Q1H [facility] Rx#: [id number] Piperacillin-Tazobactam 3 100 100 .375 gm In Sodium Chloride 0.9% 100 ml @ 25 mls/hr IVPB Q12H PRO Rx# :[id number] Potassium Chloride 10 meq 200 In Water For Injection 1 100ml.bag @ 100 mls/hr IVPB Q1H PRO Rx#: [id number] Intake, IV Titration 480 Amount Sodium Chloride 0.9% 1, 480 000 ml @ 60 mls/hr IV . [id number] [facility] Rx#:[id number] Oral 100 250 Other: Voiding Method Urinal Urinal Incontinent Incontinent Incontinent # Voids 1 2 1 # Bowel Movements 1 - Exam General: elderly i, no distress, appears at stated age, normal weight, nonacute respiratory distress. No agitation. Calm and comfortable. Derm: L great toe likely gangrene, warm, dry Head: atraumatic, normocephalic, symmetric Eyes: EOMI, no lid lag, anicteric sclera, pupils equal round reactive to light ENT: Nose and ears atraumatic, no thrush, no pharyngeal erythema, extremely dry mucous membranes. Neck: No thyromegaly, no cervical lymphadenopathy, trachea midline, supple Mouth: no lip lesion, mucus membranes moist Cardiovascular: S1S2 reg, systolic ejection murmur grade 4/6 heard throughout the precordium radiating to the neck. This is mainly appreciated in the left lateral sternal border hours apex., positive posterior tibial pulse bilateral, no edema, capillary refill less than 2 seconds Lungs: CTA bilateral, no rhonchi, no rales , no accessory muscle use Abdominal: soft, nontender to palpation, no guarding, no appreciable organomegaly, normal bowel sounds Ext: no gross muscle atrophy, muscle strength 3 out of 5 in all 4 extremities grossly, no contractures, Neuro: Not following all commands, examination limited, moving all 4 extremities without any limitation. Neurologic exam is nonfocal. No facial asymmetry. Pupils are equal and reactive to light. Psych: Awake, not oriented to self, place, or time - Labs CBC & Chem 7: 01/19/19 07:11 01/19/19 07:11 Labs: Abnormal Lab Results - Last 24 Hours (Table) 01/18/19 01/18/19 01/19/19 Range/Units 16:54 20:32 07:05 RBC (4.30-5.90) m/uL Hgb (13.0-17.5) gm/dL Hct (39.0-53.0) % RDW (11.5-15.5) % Chloride (98-107) mmol/L Glucose (74-99) mg/dL POC Glucose (mg/dL) 101 H 112 H 72 L (75-99) mg/dL Calcium (8.4-10.2) mg/dL 01/19/19 01/19/19 Range/Units 07:11 07:11 RBC 2.96 L (4.30-5.90) m/uL Hgb 8.4 L (13.0-17.5) gm/dL Hct 26.5 L (39.0-53.0) % RDW 16.6 H (11.5-15.5) % Chloride 113 H (98-107) mmol/L Glucose 67 L (74-99) mg/dL POC Glucose (mg/dL) (75-99) mg/dL Calcium 7.7 L (8.4-10.2) mg/dL Microbiology - Last 24 Hours (Table) 01/17/19 17:19 Gram Stain - Preliminary Other - Other Wound Culture - Preliminary Gram Neg Bacilli 01/15/19 17:20 Blood Culture - Preliminary Blood No Growth after 72 hours Assessment and Plan Plan: 1 sepsis/hypotension likely secondary to underlying UTI, consider gram-negative infection. Patient is recovered and his hemodynamically stable on the medical floor. He has a penile ulcer and the Scott cath has been removed 2 acute kidney injury improving renal function is normalized. 3 acute lactic acidosis and leukocytosis, improving 4 dehydration, recovered 5 non-anion gap metabolic acidosis currently on a bicarb drip, the acidosis recovered 6 hyperkalemia, improved 7 brain mass/tumor evaluated at [facility] by neurosurgery and the patient is being considered for a [employer] shunt forhydrocephalus. 8 diabetes mellitus 9 hypertension 10 hyperlipidemia 11 dementia 12 cardiac murmur awaiting an echocardiogram, consider aortic valve stenosis. The echocardiogram showed a borderline LVH, EF of around 6065%, mild aortic stenosis, mild pulmonary hypertension with a PA pressure of 39. 13 chronic normocytic anemia stable for now, the patient got transfused with a unit of packed RBC and hemoglobin improved posttransfusion and volume is up to 8.4 Plan Overall condition is stable. Pulmonary and critical care services we'll sign off the case. The patient is doing well. Continue rest of the treatment per medicine.
[2019-01-19 17:12] LABS: Glucose,Whole Blood 96 mg/dL (75-99)
[2019-01-19 20:53] LABS: Glucose,Whole Blood 118 mg/dL (75-99)
[2019-01-19] MEDS: TAMSULOSIN 0.4 MG CAP.ER.24H PO SCH (22:41)
[2019-01-19] MEDS: QUEtiapine 25 MG TAB PO SCH (22:41)
[2019-01-19] MEDS: ATORVASTATIN 40 MG TAB PO SCH (22:41)
[2019-01-20 07:29] LABS: Glucose,Whole Blood 71 mg/dL (75-99)
[2019-01-20] MEDS: INSULIN ASPART (NovoLOG) 100 UNIT/ML VIAL SQ SCH ×4 (09:33→21:04)
[2019-01-20] MEDS: PANTOPRAZOLE 40 MG TABLET PO SCH (10:34)
[2019-01-20] MEDS: HEPARIN SODIUM,PORCINE 5,000 UNIT/ML 1 ML VIAL SQ SCH ×3 (10:34→23:21)
[2019-01-20] MEDS: POLYETHYLENE GLYCOL 3350 17 GM POWD.PACK PO SCH ×2 (10:34→10:52)
[2019-01-20] MEDS: SODIUM BICARBONATE TAB 650 MG TAB PO SCH (10:34)
[2019-01-20] MEDS: BACITRACIN 500 UNIT/GM OINT 28.4 GM TUBE TOPICAL SCH ×2 (10:35→23:23)
[2019-01-20] MEDS: PIPERACILLIN-TAZOBACTAM 3.375 GM in SODIUM CHLORIDE 0.9% 100 ML IVPB SCH ×2 (10:36→23:20)
[2019-01-20 10:59] LABS: Anisocytosis Slight; HCT 27.7 % (39.0-53.0); HGB 9.1 gm/dL (13.0-17.5); Hypochromasia Slight; MCH 29.2 pg (25.0-35.0); MCHC 32.8 g/dL (31.0-37.0); Mean Platelet Volume 7.7; Platelet Count 184 k/uL (150-450); Poikilocytosis Slight; RBC 3.12 m/uL (4.30-5.90); RDW 17.1 % (11.5-15.5); WBC 8.8 k/uL (3.8-10.6)
[2019-01-20 11:33] LABS: ALT 27 U/L (21-72); AST 36 U/L (17-59); Albumin 2.1 g/dL (3.5-5.0); Alkaline Phosphatase 163 U/L (38-126); Anion Gap 3 mmol/L; Blood Urea Nitrogen 8 mg/dL (9-20); Calcium 7.5 mg/dL (8.4-10.2); Carbon Dioxide 22 mmol/L (22-30); Chloride 111 mmol/L (98-107); Glucose 64 mg/dL (74-99); Potassium 3.8 mmol/L (3.5-5.1); Sodium 136 mmol/L (137-145); Total Bilirubin 0.6 mg/dL (0.2-1.3); Total Protein 4.3 g/dL (6.3-8.2)
[2019-01-20 12:11] LABS: Glucose,Whole Blood 71 mg/dL (75-99)
--- NOTE | 2019-01-20 13:48 | P.PN ---
Subjective Progress Note Date: 01/20/19 Principal diagnosis: UTI, sepsis Patient was seen and examined. No acute events overnight. No clear communication but able to follow commands. Objective - Vital Signs Vital signs: Vital Signs Temp 98.2 F 01/20/19 05:38 Pulse 76 01/20/19 05:38 Resp 12 01/20/19 05:38 BP 134/63 01/20/19 05:38 Pulse Ox 96 01/20/19 05:38 Intake & Output 01/19/19 01/20/19 01/20/19 18:59 06:59 18:59 Intake Total 650 580 Balance 650 580 Intake: IV 100 Piperacillin-Tazobactam 3 100 .375 gm In Sodium Chloride 0.9% 100 ml @ 25 mls/hr IVPB Q12H [facility] Rx# :[id number] Intake, IV Titration 480 Amount Sodium Chloride 0.9% 1, 480 000 ml @ 60 mls/hr IV . [id number] [facility] Rx#:[id number] Oral 650 Other: Voiding Method Incontinent Incontinent Incontinent # Voids 2 1 # Bowel Movements 1 - Exam General: [non toxic], [no distress], [appears at stated age] Derm: [warm], [dry] Head: [atraumatic], [normocephalic], [symmetric] Eyes: [EOMI], [no lid lag], [anicteric sclera] Mouth: [no lip lesion], [mucus membranes moist] Cardiovascular: [S1S2 reg], [holosystolic murmur] Lungs: [CTA bilateral], [no rhonchi, no rales] , [no accessory muscle use] Abdominal: [soft], [ nontender to palpation], [no guarding], [no appreciable organomegaly] Ext: [no gross muscle atrophy], [no edema], [air boots, eschar over bilateral total] Neuro: [no focal neuro deficits] Psych: [Cannot communicate effectively] - Labs CBC & Chem 7: 01/20/19 06:46 01/20/19 06:46 Labs: Abnormal Lab Results - Last 24 Hours (Table) 01/19/19 01/20/19 01/20/19 Range/Units 20:50 06:46 06:46 RBC 3.12 L (4.30-5.90) m/uL Hgb 9.1 L (13.0-17.5) gm/dL Hct 27.7 L (39.0-53.0) % RDW 17.1 H (11.5-15.5) % Sodium 136 L (137-145) mmol/L Chloride 111 H (98-107) mmol/L BUN 8 L (9-20) mg/dL Glucose 64 L (74-99) mg/dL POC Glucose (mg/dL) 118 H (75-99) mg/dL Calcium 7.5 L (8.4-10.2) mg/dL Alkaline Phosphatase 163 H (38-126) U/L Total Protein 4.3 L (6.3-8.2) g/dL Albumin 2.1 L (3.5-5.0) g/dL 01/20/19 01/20/19 Range/Units 07:27 11:52 RBC (4.30-5.90) m/uL Hgb (13.0-17.5) gm/dL Hct (39.0-53.0) % RDW (11.5-15.5) % Sodium (137-145) mmol/L Chloride (98-107) mmol/L BUN (9-20) mg/dL Glucose (74-99) mg/dL POC Glucose (mg/dL) 71 L 71 L (75-99) mg/dL Calcium (8.4-10.2) mg/dL Alkaline Phosphatase (38-126) U/L Total Protein (6.3-8.2) g/dL Albumin (3.5-5.0) g/dL Microbiology - Last 24 Hours (Table) 01/15/19 17:20 Blood Culture - Preliminary Blood No Growth after 96 hours Assessment and Plan Assessment: Assessment and Plan Sepsis likely secondary to UTI, gram-negative infection Toxic metabolic encephalopathy with underlying dementia Acute kidney injury Lactic acidosis Non-gap metabolic acidosis Anemia Brain tumor Diabetes mellitus Hypertension Hyperlipidemia Patient initially met septic criteria on admission (leukocytosis of 19.9, hypo tensive BP 81/59, HR > 90, lactic acid 5.1, UTI as source of infection). Started on Levophed and SoulMedrol, off since 01/18/2019. Chest x-ray shows no acute disease. Urinalysis shows moderate leukocyte esterase, partially treated in the outpatient setting. Blood cultures preliminary negative at 96 hours. Urine cultures negative. Wound culture growing gram-negative bacilli. Plan: Continue Zosyn IV. Continue normal saline at 60 mL per hour. Follow wound cultures. Follow blood cultures. Follow C. diff. Follow ID recommendations. History of brain tumor, underlying dementia worsened with sepsis. Plan: Continue IV antibiotics. Continue Seroquel. Frequent redirection. Window side bed. Neurochecks. Creatinine on admission 2.59. BUN and creatinine within normal limits today. Likely due to dehydration. Renal ultrasound shows no hydronephrosis. Plan: Continue IVF as above. Avoid nephrotoxins. Daily BMP. Follow nephrology recommendations. Lactic acid from 5.1-2.2- within normal limits. Possibly related to dehydration with component of sepsis. Plan: Resolved. Continue IVF as above. Bicarbonate from 19-within normal limits. Normal anion gap. Likely secondary to lactic acidosis, acute kidney injury and possible sepsis. Initially on bicarbonate drip, now discontinued. Plan: Continue sodium bicarbonate. Continue IVF as above. Hemoglobin 7.9-9.1, normocytic. Post 1 unit PRBC on 01/17/2019. Iron studies show anemia of chronic disease. FOBT negative. Plan: Daily CBC. Transfuse if hemoglobin less than 7. Restart Lovenox. 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 Plan: Follow-up at [place]. Follow PTOT and speech therapy. Neurochecks. Oqlfy-nv-elom glucose 71. Plan: Insulin sliding scale. Hypoglycemic precautions. Regular Accu-Cheks. Hold glipizide for hypoglycemia. Will change IVF to D5 NS to maintain blood glucose. BP 134/63. On lisinopril at home. 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 Monitor vitals, adjust medications as necessary. Plan: Continue Lipitor. DVT prophylaxis: [Lovenox] Discussed with: [Patient] Anticipated discharge: [1-2 days] Anticipated discharge place: [SNF] A total of [30] minutes was spent on the care of this complex patient more than 50% of the time was spent in counseling and care coordination. Patient admitted for metabolic encephalopathy likely secondary to sepsis. Initially on pressors now discontinued. He continues to be on Zosyn IV with inf ectious disease on board and cultures pending. Found to be progressively anemic, post 1 PRBC, FOBT negative. Plans for ECF depending on guardian decision. Fall social work tomorrow.
[2019-01-20] MEDS: SODIUM CHLORIDE 0.9% 1,000 ML IV SCH (15:21)
[2019-01-20 17:20] LABS: Glucose,Whole Blood 61 mg/dL (75-99)
[2019-01-20 17:20] LABS: Glucose,Whole Blood 85 mg/dL (75-99)
[2019-01-20] MEDS: DEXTROSE 5%-0.9% NACL 1,000 ML IV SCH (17:51)
[2019-01-20 20:48] LABS: Glucose,Whole Blood 105 mg/dL (75-99)
[2019-01-20] MEDS: ATORVASTATIN 40 MG TAB PO SCH (23:20)
[2019-01-20] MEDS: QUEtiapine 25 MG TAB PO SCH (23:21)
[2019-01-20] MEDS: TAMSULOSIN 0.4 MG CAP.ER.24H PO SCH (23:21)
[2019-01-21 07:28] LABS: Glucose,Whole Blood 99 mg/dL (75-99)
[2019-01-21] MEDS: INSULIN ASPART (NovoLOG) 100 UNIT/ML VIAL SQ SCH ×4 (07:35→21:06)
[2019-01-21] MEDS: SODIUM BICARBONATE TAB 650 MG TAB PO SCH (07:59)
[2019-01-21] MEDS: BACITRACIN 500 UNIT/GM OINT 28.4 GM TUBE TOPICAL SCH ×2 (07:59→20:21)
[2019-01-21] MEDS: PANTOPRAZOLE 40 MG TABLET PO SCH (07:59)
[2019-01-21] MEDS: ENOXAPARIN 40 MG/0.4 ML SYRINGE SQ SCH (07:59)
[2019-01-21] MEDS: POLYETHYLENE GLYCOL 3350 17 GM POWD.PACK PO SCH (07:59)
[2019-01-21] MEDS: DEXTROSE 5%-0.9% NACL 1,000 ML IV SCH (08:00)
[2019-01-21] MEDS: PIPERACILLIN-TAZOBACTAM 3.375 GM in SODIUM CHLORIDE 0.9% 100 ML IVPB SCH (09:27)
[2019-01-21 12:34] LABS: Glucose,Whole Blood 99 mg/dL (75-99)
--- NOTE | 2019-01-21 12:36 | P.PN ---
Subjective Progress Note Date: 01/21/19 Principal diagnosis: lethargy Patient is an 88-year-old male past medical history of brain tumor, diabetes, dyslipidemia, hypertension, and dementia who was sent to the ER from Dr. Bellamy's office due to lethargy and decreased responsiveness. 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 He has recently been at [facility] where he spent 6 weeks for rehab. Apparently he developed bedsores and had a urinary tract infection, he had a Scott catheter which has si nce been discontinued, and he was discharged home on 01/14 with Bactrim. Granddaughter noticed that he was increasingly sleepy, weak, and developed diarrhea. She took him to Dr. Bellamy's office and subsequently here. In the ER he underwent an extensive evaluation. His don't have a low blood pressure of 93/74 on admission but his vital signs were otherwise stable. Initial laboratory analysis showed white blood cell count of 19.9, hemoglobin 8, lactic acid 5.1, potassium 5.5, CO2 19, and creatinine 2.59. UA showed possible infection is currently undergoing treatment. Head CT showed a suprasellar mass but no signs of hydrocephalus. Chest x-ray was unremarkable. Patient remained hypotensive despite IV fluid administration and subsequently a right IJ central line was placed. Patient was started on norepinephrine and has subsequently been admitted to the ICU. His IV fluids were then transitioned to D5 with bicarbonate secondary to underlying anion gap metabolic acidosis and hypogly cemia. He was maintained on Zosyn. His lactic acid level improved. He was noted to have ulcers over both great toes as well as a stage II coccyx ulcer. Dr. Mccarty was consulted. He was started on Bactroban. On the morning of 01/17 he remained on IV vasopressors. He did have a drop in his hemoglobin and received 1 unit of packed red blood cells. His fecal occult blood was negative. Blood and urine cultures remain negative. Nephrology is actively following the patient. He completed a seven-day course of Zosyn on 01/21. He was placed on oral sodium bicarb due to his acidosis. He continues to have poor oral intake. Patient seen and examined at bedside. Confused but conversational. Denies pain, SOB, nausea. No family present at bedside. Per nursing no acute events overnight. Still with very little oral intake. Objective - Vital Signs Vital signs: Vital Signs Temp 98.3 F 01/21/19 04:57 Pulse 94 01/21/19 04:57 Resp 17 01/21/19 04:57 BP 129/72 01/21/19 04:57 Pulse Ox 95 01/21/19 04:57 Intake & Output 01/20/19 01/21/19 01/21/19 18:59 06:59 18:59 Other: Voiding Method Incontinent Incontinent Incontinent # Voids 3 2 # Bowel Movements 2 - Exam General: non toxic, no distress, appears at stated age Derm: b/l ulcers on great toes, warm, dry Head: atraumatic, normocephalic, symmetric Eyes: EOMI, no lid lag, anicteric sclera Mouth: no lip lesion, mucus membranes dry Cardiovascular: S1S2 reg, no murmur, positive posterior tibial pulse bilateral, Lungs: decreased bs bilateral, no rhonchi, no rales , no accessory muscle use Abdominal: soft, nontender to palpation, no guarding, no appreciable organomegaly Ext: no gross muscle atrophy, no edema, no contractures Neuro: CN II-XI grossly intact, no focal neuro deficits Psych: awake confused, appears slightly anxious - Labs CBC & Chem 7: 01/20/19 06:46 01/20/19 06:46 Labs: Abnormal Lab Results - Last 24 Hours (Table) 01/20/19 01/20/19 Range/Units 16:40 20:48 POC Glucose (mg/dL) 61 L 105 H (75-99) mg/dL Microbiology - Last 24 Hours (Table) 01/15/19 17:20 Blood Culture - Preliminary Blood No Growth after 120 hours 01/17/19 17:19 Gram Stain - Final Other - Other Wound Culture - Final Proteus mirabilis Staphylococcus aureus Assessment and Plan Assessment: UTI with septic shock - partially teated and culture negative on arrival -Status post 4 L of normal saline -blood culture negative - IV Zosyn Completed 01/21 - Critical care signed off Toxic metabolic encephalopathy with underlying dementia -Treatment of infection above -Supportive care -Frequent reorientation Acute kidney injury with hyperkalemia and anion gap metabolic acidosis, resolved - resume lisinopril but at 5 mg daily Hypoglycemia with history of diabetes mellitus, now euglyemic -Trial off D5 containing solution, may increase his appetite -Continue to follow blood sugars -Likely related to glipizide to sit still be in his system will continue to hold this Brain lesion -follow-up at [place] Normocytic anemia, anemia of chronic disease -Follow CBC B/L great toe unstagable ulcers, Stage III pressure ulcer to the coccyx -out of bed TID - Frequent turns - Dr. Lul luong Constipation - miralax Chronic: Hypertension Dyslipidemia DVT prophylaxis: SCDs with current brain abnormality Discussed with: patient, nursing Anticipated discharge: unknown Anticipated discharge place: Likely will need SNF A total of 45 minutes was spent on the care of this complex patient more than 50% of the time was spent in counseling and care coordination.
[2019-01-21] MEDS: LISINOPRIL 5 MG TAB PO SCH (12:57)
[2019-01-21 17:09] LABS: Glucose,Whole Blood 108 mg/dL (75-99)
[2019-01-21] MEDS: ATORVASTATIN 40 MG TAB PO SCH (20:21)
[2019-01-21] MEDS: TAMSULOSIN 0.4 MG CAP.ER.24H PO SCH (20:21)
[2019-01-21] MEDS: QUEtiapine 25 MG TAB PO SCH (20:21)
[2019-01-21 20:52] LABS: Glucose,Whole Blood 191 mg/dL (75-99)
[2019-01-22 07:13] LABS: Glucose,Whole Blood 114 mg/dL (75-99)
[2019-01-22] MEDS: INSULIN ASPART (NovoLOG) 100 UNIT/ML VIAL SQ SCH ×4 (07:17→20:55)
[2019-01-22] MEDS: ENOXAPARIN 40 MG/0.4 ML SYRINGE SQ SCH (07:56)
[2019-01-22] MEDS: POLYETHYLENE GLYCOL 3350 17 GM POWD.PACK PO SCH (07:56)
[2019-01-22] MEDS: LISINOPRIL 5 MG TAB PO SCH (07:56)
[2019-01-22] MEDS: SODIUM BICARBONATE TAB 650 MG TAB PO SCH (07:56)
[2019-01-22] MEDS: BACITRACIN 500 UNIT/GM OINT 28.4 GM TUBE TOPICAL SCH ×2 (07:56→20:55)
[2019-01-22] MEDS: PANTOPRAZOLE 40 MG TABLET PO SCH (07:56)
[2019-01-22 10:04] LABS: Anion Gap 3 mmol/L; Blood Urea Nitrogen 5 mg/dL (9-20); Calcium 7.3 mg/dL (8.4-10.2); Carbon Dioxide 24 mmol/L (22-30); Chloride 110 mmol/L (98-107); Glucose 156 mg/dL (74-99); Magnesium 1.5 mg/dL (1.6-2.3); Phosphorus 1.4 mg/dL (2.5-4.5); Potassium 3.2 mmol/L (3.5-5.1); Sodium 137 mmol/L (137-145)
[2019-01-22] MEDS: CEPHALEXIN 500 MG CAP PO SCH ×3 (11:54→20:54)
[2019-01-22] MEDS: MAGNESIUM SULFATE-D5W PMX 1 GM in DEXTROSE/WATER 1 100ML.BAG IVPB SCH ×2 (11:54→14:25)
[2019-01-22] MEDS: MAGNESIUM OXIDE 400 MG TAB PO SCH ×2 (11:54→20:54)
[2019-01-22 12:04] LABS: Glucose,Whole Blood 158 mg/dL (75-99)
[2019-01-22] MEDS: POTASSIUM PHOSPHATE 10 MMOL in SODIUM CHLORIDE 0.9% 250 ML IV SCH ×2 (12:28→14:26)
--- NOTE | 2019-01-22 16:35 | P.PN ---
Subjective Progress Note Date: 01/22/19 (delayed charting seen at 11am) Principal diagnosis: lethargy Patient is an 88-year-old male past medical history of brain tumor, diabetes, dyslipidemia, hypertension, and dementia who was sent to the ER from Dr. Bellamy's office due to lethargy and decreased responsiveness. 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 He has recently been at [facility] where he spent 6 weeks for rehab. Apparently he developed bedsores and had a urinary tract infection, he had a Scott catheter which has since been discontinued, and he was discharged home on 01/14 with Bactrim. Granddaughter noticed that he was increasingly sleepy, weak, and developed diarrhea. She took him to Dr. Bellamy's office and subsequently here. In the ER he underwent an extensive evaluation. His don't have a low blood pressure of 93/74 on admission but his vital signs were otherwise stable. Initial laboratory analysis showed white blood cell count of 19.9, hemoglobin 8, lactic acid 5.1, potassium 5.5, CO2 19, and creatinine 2.59. UA showed possible infection is currently undergoing treatment. Head CT showed a suprasellar mass but no signs of hydrocephalus. Chest x-ray was unremarkable. Patient remained hypotensive despite IV fluid administration and subsequently a right IJ central line was placed. Patient was started on norepinephrine and has subsequently been admitted to the ICU. His IV fluids were then transitioned to D5 with bicarbonate secondary to underlying anion gap metabolic acidosis and hypoglycemia. He was maintained on Zosyn. His lactic acid level improved. He was noted to have ulcers over both great toes as well as a stage II coccyx ulcer. Dr. Mccarty was consulted. He was started on Bactroban. On the morning of 01/17 he remained on IV vasopressors. He did have a drop in his hemoglobin and received 1 unit of packed red blood cells. His fecal occult blood was negative. Blood and urine cultures remain negative. Nephrology is actively following the patient. He completed a seven-day course of Zosyn on 01/21. He was placed on oral sodium bicarb due to his acidosis. He continues to have poor oral intake, which improved with stopping glucose containing IV He was determined stable for discharge to SNF. He did have low potassium, phos, and magnesium which were aggressively replaced. Patient seen and examined at bedside. More awake today. Denies pain, no nausea, no vomiting, no shortness of breath. No family present at bedside. Per nursing no acute events overnight. Increased oral intake this AM. Objective - Vital Signs Vital signs: Vital Signs Temp 98.0 F 01/22/19 15:00 Pulse 81 01/22/19 15:00 Resp 20 01/22/19 16:00 BP 120/73 01/22/19 15:00 Pulse Ox 97 01/22/19 15:00 Intake & Output 01/21/19 01/22/19 01/22/19 18:59 06:59 18:59 Intake Total 1000 370 Balance 1000 370 Intake: IV 480 Dextrose 5%-0.9% NaCl 1, 480 000 ml @ 50 mls/hr IV . Q20H [facility] Rx#:[id number] Oral 520 370 Other: Voiding Method Incontinent Incontinent Diaper Incontinent # Voids 2 3 2 # Bowel Movements 1 1 1 - Exam General: non toxic, no distress, appears at stated age Derm: b/l ulcers on great toes, warm, dry Head: atraumatic, normocephalic, symmetric Eyes: EOMI, no lid lag, anicteric sclera Mouth: no lip lesion, mucus membranes dry Cardiovascular: S1S2 reg, no murmur, positive posterior tibial pulse bilateral, Lungs: decreased bs bilateral, no rhonchi, no rales , no accessory muscle use Abdominal: soft, nontender to palpation, no guarding, no appreciable organomegaly Ext: no gross muscle atrophy, no edema, no contractures Neuro: CN II-XI grossly intact, no focal neuro deficits Psych: awake confused, appears slightly anxious - Labs CBC & Chem 7: 01/20/19 06:46 01/22/19 08:58 Labs: Abnormal Lab Results - Last 24 Hours (Table) 01/21/19 01/21/19 01/22/19 Range/Units 17:05 20:45 07:03 Potassium (3.5-5.1) mmol/L Chloride (98-107) mmol/L BUN (9-20) mg/dL Glucose (74-99) mg/dL POC Glucose (mg/dL) 108 H 191 H 114 H (75-99) mg/dL Calcium (8.4-10.2) mg/dL Phosphorus (2.5-4.5) mg/dL Magnesium (1.6-2.3) mg/dL 01/22/19 01/22/19 Range/Units 08:58 11:54 Potassium 3.2 L (3.5-5.1) mmol/L Chloride 110 H (98-107) mmol/L BUN 5 L (9-20) mg/dL Glucose 156 H (74-99) mg/dL POC Glucose (mg/dL) 158 H (75-99) mg/dL Calcium 7.3 L (8.4-10.2) mg/dL Phosphorus 1.4 L (2.5-4.5) mg/dL Magnesium 1.5 L (1.6-2.3) mg/dL Microbiology - Last 24 Hours (Table) 01/17/19 17:19 Anaerobic Culture - Final Penis 01/15/19 17:20 Blood Culture - Final Blood No Growth after 144 hours Assessment and Plan Assessment: Hypokalemia, Hypomagnesemia, hypophosphatemia - repleace and recheck in AM Toxic metabolic encephalopathy with underlying dementia -improved, appears back to baseline -Supportive care Acute kidney injury with hyperkalemia and anion gap metabolic acidosis, resolved - resume lisinopril but at 5 mg daily DM 2, increased BS -Continue to follow blood sugars -Likely related to glipizide to sit still be in his system will continue to hold - if BS remain elevated than consider januvia on D/C Brain lesion -follow-up at [place] Normocytic anemia, anemia of chronic disease -Follow CBC B/L great toe unstagable ulcers, Stage III pressure ulcer to the coccyx -out of bed TID - Frequent turns - Dr. Lul luong Constipation - miralax UTI with septic shock, treated Hypoglycemia Chronic: Hypertension Dyslipidemia DVT prophylaxis: SCDs with current brain abnormality Discussed with: patient, nursing Anticipated discharge: tomorrow Anticipated discharge place: [facility]. A total of 25 minutes was spent on the care of this complex patient more than 50% of the time was spent in counseling and care coordination.
[2019-01-22 17:23] LABS: Glucose,Whole Blood 128 mg/dL (75-99)
[2019-01-22 20:18] LABS: Glucose,Whole Blood 146 mg/dL (75-99)
[2019-01-22] MEDS: QUEtiapine 25 MG TAB PO SCH (20:54)
[2019-01-22] MEDS: TAMSULOSIN 0.4 MG CAP.ER.24H PO SCH (20:54)
[2019-01-22] MEDS: ATORVASTATIN 40 MG TAB PO SCH (20:54)
--- NOTE | 2019-01-22 23:50 | P.PN ---
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 [facility] and subsequently discharged home for one day and brought in the hospital due to changes in mental status as well as weakness. Granddaughter is also power of real estate attorney and seeking permanent guardianship has related to the nurses that patient developed bedsores while at the [facility]. Patient is noted to have a stage II decubitus ulcer to the coccyx and stage II ulcers to the bilateral great toes. Patient also was treated at the intermediate for urinary tract infection with Bactrim. Patient presented to [facility] with signs of sepsis, septic shock, acute kidney injury with metabolic acidosis. Patient was admitted into the intensive care unit on small dose of norepinephrine which is being weaned off today. He is receiving 1 unit of pa cked RBCs for hemoglobin of 6.5. He has multiple consultants in place including Dr. Lara for acute kidney injury, Dr. Macedo for intensive care management. Chest x-ray shows no active cardiopulmonary disease. Repeat chest x-ray reveals airspace disease within the left hilar and right IJ catheter in place. Renal ultrasound shows no hydronephrosis. CAT scan of the brain shows large elongated mass in the left suprasellar region. 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 Contrast CT could be helpful. Cerebral atrophy and chronic small vessel ischemia. Leukocytosis has improved from 19.9-10.7 as well as lactic acid from 2.2-1. Patient is currently on Zosyn and received 1 dose of vancomycin. Blood culture showing no growth after 24 hours and urine culture has been finalized with no growth. 01/22/2019 the patient is a bit more cognizant. Does seem to be comfortable. Getting ready for discharge to extended care. Objective - Vital Signs Vital signs: Vital Signs Temp 97.1 F L 01/22/19 21:00 Pulse 87 01/22/19 21:00 Resp 18 01/22/19 21:00 BP 122/67 01/22/19 21:00 Pulse Ox 98 01/22/19 21:00 Intake & Output 01/22/19 01/22/19 01/23/19 06:59 18:59 06:59 Intake Total 370 200 Balance 370 200 Intake: Oral 370 200 Other: Voiding Method Incontinent Diaper Incontinent # Voids 3 2 2 # Bowel Movements 1 1 2 - Exam Gen: This is an 88-year-old male. He is sitting up in bed and appears to be in no acute distress. No Sitter today HEENT: Head is atraumatic, normocephalic. Pupils equal, round. Sclerae is anicteric. Oral mucous membranes are moist. Patient is edentulous. NECK: Supple. No JVD. No lymphadenopathy. No thyromegaly. LUNGS: Clear to auscultation. No wheezes or rhonchi. No intercostal retractions. HEART: Regular rate and rhythm. Loud systolic murmur. ABDOMEN: Soft. Bowel sounds are present. No masses. No tenderness. Scott catheter draining clear star urine. EXTREMITIES: No pedal edema. Waffle boots in place. Patient has ulcer to the bilateral great toes, onychomycosis bilaterally. No open wounds to the heels. NEUROLOGICAL: Patient is awake, alert and confused. Is oriented to person - Labs CBC & Chem 7: 01/20/19 06:46 01/22/19 08:58 Labs: Abnormal Lab Results - Last 24 Hours (Table) 01/22/19 01/22/19 01/22/19 Range/Units 07:03 08:58 11:54 Potassium 3.2 L (3.5-5.1) mmol/L Chloride 110 H (98-107) mmol/L BUN 5 L (9-20) mg/dL Glucose 156 H (74-99) mg/dL POC Glucose (mg/dL) 114 H 158 H (75-99) mg/dL Calcium 7.3 L (8.4-10.2) mg/dL Phosphorus 1.4 L (2.5-4.5) mg/dL Magnesium 1.5 L (1.6-2.3) mg/dL 01/22/19 01/22/19 Range/Units 17:15 20:15 Potassium (3.5-5.1) mmol/L Chloride (98-107) mmol/L BUN (9-20) mg/dL Glucose (74-99) mg/dL POC Glucose (mg/dL) 128 H 146 H (75-99) mg/dL Calcium (8.4-10.2) mg/dL Phosphorus (2.5-4.5) mg/dL Magnesium (1.6-2.3) mg/dL Microbiology - Last 24 Hours (Table) 01/17/19 17:19 Anaerobic Culture - Final Penis 01/15/19 17:20 Blood Culture - Final Blood No Growth after 144 hours Laboratory Results WBC 8.8 k/uL (3.8-10.6) 01/20/19 06:46 RBC 3.12 m/uL (4.30-5.90) L 01/20/19 06:46 Hgb 9.1 gm/dL (13.0-17.5) L 01/20/19 06:46 Hct 27.7 % (39.0-53.0) L 01/20/19 06:46 MCV 89.0 fL (80.0-100.0) 01/20/19 06:46 MCH 29.2 pg (25.0-35.0) 01/20/19 06:46 MCHC 32.8 g/dL (31.0-37.0) 01/20/19 06:46 RDW 17.1 % (11.5-15.5) H 01/20/19 06:46 Plt Count 184 k/uL (150-450) 01/20/19 06:46 Neutrophils % 68 % 01/19/19 07:11 Lymphocytes % 23 % 01/19/19 07:11 Monocytes % 5 % 01/19/19 07:11 Eosinophils % 2 % 01/19/19 07:11 Basophils % 1 % 01/19/19 07:11 Neutrophils # 4.8 k/uL (1.3-7.7) 01/19/19 07:11 Lymphocytes # 1.6 k/uL (1.0-4.8) 01/19/19 07:11 Monocytes # 0.4 k/uL (0-1.0) 01/19/19 07:11 Eosinophils # 0.2 k/uL (0-0.7) 01/19/19 07:11 Basophils # 0.0 k/uL (0-0.2) 01/19/19 07:11 Hypochromasia Slight 01/20/19 06:46 Poikilocytosis Slight 01/20/19 06:46 Anisocytosis Slight 01/20/19 06:46 PT 11.4 sec (9.0-12.0) 01/15/19 16:45 INR 1.1 (<1.2) 01/15/19 16:45 APTT 24.7 sec (22.0-30.0) 01/15/19 16:45 Sodium 137 mmol/L (137-145) 01/22/19 08:58 Potassium 3.2 mmol/L (3.5-5.1) L 01/22/19 08:58 Chloride 110 mmol/L (98-107) H 01/22/19 08:58 Carbon Dioxide 24 mmol/L (22-30) 01/22/19 08:58 Anion Gap 3 mmol/L 01/22/19 08:58 BUN 5 mg/dL (9-20) L 01/22/19 08:58 Creatinine 0.68 mg/dL (0.66-1.25) 01/22/19 08:58 Est GFR (CKD-EPI)AfAm >90 (>60 ml/min/1.73 sqM) 01/22/19 08:58 Est GFR (CKD-EPI)NonAf 86 (>60 ml/min/1.73 sqM) 01/22/19 08:58 Glucose 156 mg/dL (74-99) H 01/22/19 08:58 POC Glucose (mg/dL) 146 mg/dL (75-99) H 01/22/19 20:15 POC Glu Medicare Specialist ID Jill Law 01/22/19 20:15 Lactic Ac Sepsis Rflx Y 01/15/19 21:52 Plasma Lactic Acid Vik 1.0 mmol/L (0.7-2.0) 01/16/19 08:37 Calcium 7.3 mg/dL (8.4-10.2) L 01/22/19 08:58 Phosphorus 1.4 mg/dL (2.5-4.5) L 01/22/19 08:58 Magnesium 1.5 mg/dL (1.6-2.3) L 01/22/19 08:58 Iron 34 ug/dL (65-175) L 01/16/19 08:37 TIBC 167 ug/dL (228-460) L 01/16/19 08:37 Iron Saturation 20.36 (15.00-50.00) 01/16/19 08:37 Ferritin 679.6 ng/mL (22.0-322.0) H 01/16/19 08:37 Total Bilirubin 0.6 mg/dL (0.2-1.3) 01/20/19 06:46 AST 36 U/L (17-59) 01/20/19 06:46 ALT 27 U/L (21-72) 01/20/19 06:46 Alkaline Phosphatase 163 U/L (38-126) H 01/20/19 06:46 Troponin I 0.018 ng/mL (0.000-0.034) 01/15/19 16:45 Total Protein 4.3 g/dL (6.3-8.2) L 01/20/19 06:46 Albumin 2.1 g/dL (3.5-5.0) L 01/20/19 06:46 Urine Color Yellow 01/15/19 16:45 Urine Appearance Cloudy (Clear) 01/15/19 16:45 Urine pH 5.0 (5.0-8.0) 01/15/19 16:45 Ur Specific [place] 1.019 (1.001-1.035) 01/15/19 16:45 Urine Protein 1+ (Negative) H 01/15/19 16:45 Urine Glucose (UA) Negative (Negative) 01/15/19 16:45 Urine Ketones Negative (Negative) 01/15/19 16:45 Urine Blood Trace (Negative) H 01/15/19 16:45 Urine Nitrite Negative (Negative) 01/15/19 16:45 Urine Bilirubin Negative (Negative) 01/15/19 16:45 Urine Urobilinogen <2.0 mg/dL (<2.0) 01/15/19 16:45 Ur Leukocyte Esterase Moderate (Negative) H 01/15/19 16:45 Urine RBC 15 /hpf (0-5) H 01/15/19 16:45 Urine WBC 17 /hpf (0-5) H 01/15/19 16:45 Hyaline Casts 12 /lpf (0-2) H 01/15/19 16:45 Urine Mucus Rare /hpf (None) H 01/15/19 16:45 Stool Occult Blood Negative (Negative) 01/20/19 06:58 Random Vancomycin 12.6 ug/mL 01/17/19 04:19 Blood Type O Positive 01/17/19 06:00 Blood Type Confirm O Positive 01/17/19 06:41 Blood Type Recheck CABO Indicated 01/17/19 06:00 Antibody Screen NEGATIVE 01/17/19 06:00 Crossmatch See Detail 01/17/19 06:00 Spec Expiration Date 01/20/2019 - 2300 01/17/19 06:00 Microbiology 01/17/19 17:19 Penis Anaerobic Culture - Final 01/15/19 17:20 Blood Blood Culture - Final No Growth after 144 hours 01/17/19 17:19 Other - Other Gram Stain - Final 01/17/19 17:19 Other - Other Wound Culture - Final Proteus mirabilis Staphylococcus aureus 01/15/19 16:45 Urine,Voided Urine Culture - Final Assessment and Plan Assessment: 88-year-old gentleman has an extensive recent past medical history in that he had significant worsening of his status without evidence of the large benign brain tumor he was cared for at the extended care facility and discharged home. Shortly thereafter he became weak because of the family had him transported to hospital. As noted there is evidence of hypotension and acute renal failure and acidosis at the time of his admission and constantly was brought to the intensive care unit and treated with vasopressor therapy that is now weaned. The patient is awake and alert however very communicative is extremely poor. There is evidence of the significant leukocytosis and his lactic acidosis has resolved with treatment. Antimicrobial therapy has been Zosyn and vancomycin with concerns to underlying sepsis of an undefined etiology. Patient does have urinalysis that is abnormal and culture is pending. Blood cultures are pending. He does have evidence of the pressure ulceration to the right great toe which has eschar in place is unstageable. This was present on admission. There is also the stage III pressure ulcerations on the coccyx is per the nursing documentation. These were present on admission. Will be treated with the Mepilex dressing at this time. He is on an air ICU bed. We'll continue current antibiotic therapy until further culture results are available. 01/14/2019. Cultures are now final. We'll be able to utilize Keflex 500 mg every 8 hours to treat the isolated pathogens. The antibiotic orders are placed for him to utilize the transfer to his extended care facility. Local wound care with the Honey is applied to the toe and the Mepilex is to the coccyx. I believe he'll be cared for by the wound care team at the extended care facility.
[2019-01-23 07:28] LABS: Glucose,Whole Blood 118 mg/dL (75-99)
[2019-01-23] MEDS: INSULIN ASPART (NovoLOG) 100 UNIT/ML VIAL SQ SCH ×3 (08:08→17:22)
[2019-01-23] MEDS: PANTOPRAZOLE 40 MG TABLET PO SCH (08:10)
[2019-01-23] MEDS: SODIUM BICARBONATE TAB 650 MG TAB PO SCH (08:10)
[2019-01-23] MEDS: POLYETHYLENE GLYCOL 3350 17 GM POWD.PACK PO SCH (08:10)
[2019-01-23] MEDS: ENOXAPARIN 40 MG/0.4 ML SYRINGE SQ SCH (08:10)
[2019-01-23] MEDS: CEPHALEXIN 500 MG CAP PO SCH ×2 (08:10→16:49)
[2019-01-23] MEDS: LISINOPRIL 5 MG TAB PO SCH (08:10)
[2019-01-23] MEDS: MAGNESIUM OXIDE 400 MG TAB PO SCH (08:11)
[2019-01-23] MEDS: BACITRACIN 500 UNIT/GM OINT 28.4 GM TUBE TOPICAL SCH (08:12)
[2019-01-23] MEDS ORDERED: ACETAMINOPHEN TAB 500 MG TAB PO PRN (08:13)
[2019-01-23 11:14] LABS: Anion Gap 4 mmol/L; Blood Urea Nitrogen 4 mg/dL (9-20); Calcium 7.3 mg/dL (8.4-10.2); Carbon Dioxide 23 mmol/L (22-30); Chloride 111 mmol/L (98-107); Glucose 142 mg/dL (74-99); Magnesium 1.8 mg/dL (1.6-2.3); Phosphorus 1.5 mg/dL (2.5-4.5); Potassium 3.6 mmol/L (3.5-5.1); Sodium 138 mmol/L (137-145)
[2019-01-23 12:08] LABS: Glucose,Whole Blood 146 mg/dL (75-99)
[2019-01-23] MEDS ORDERED: Phosphorus Replacement Protoco 1 EACH MISC MISCELLANE PRN (12:25)
--- NOTE | 2019-01-23 12:44 | P.DS ---
Providers Date of admission: 01/15/19 22:02 Expected date of discharge: 01/23/19 Attending physician: Javier Moore MD Consults: 01/15/19 20:29 Consult Physician Urgent Consulting Provider: Jessica Kiran Consult Reason/Comments: arf Do you want consulting provider notified?: Yes 01/16/19 00:54 Consult Physician Stat Consulting Provider: Paulette Macedo Consult Reason/Comments: ICU admission Do you want consulting provider notified?: Yes 01/16/19 19:59 Consult Physician Routine Consulting Provider: Kobe Mccarty Consult Reason/Comments: Sacral wound Do you want consulting provider notified?: Yes Primary care physician: Haim Bellamy [facility] Course: Discharge Diagnosis: UTI with septic shock, treated Hypoglycemia toxic metabolic encephalopathy Acute kidney injury with hyperglycemia, and anion gap metabolic acidosis Diabetes mellitus Brain lesion Normocytic anemia Hypokalemia Hypomagnesemia Hypophosphatemia Hypertension Dyslipidemia Polymicrobial infected stage II coccyx pressure ulcer, POA Hospital Course: Patient is an 88-year-old male past medical history of brain tumor, diabetes, dyslipidemia, hypertension, and dementia who was sent to the ER from Dr. Bellamy's office due to lethargy and decreased responsiveness. 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 He has recently been at [facility] where he spent 6 weeks for rehab. Apparently he developed bedsores and had a urinary tract infection, he had a Scott catheter which has since been discontinued, and he was discharged home on 01/14 with Bactrim. Granddaughter noticed that he was increasingly sleepy, weak, and developed d iarrhea. She took him to Dr. Bellamy's office and subsequently here. In the ER he underwent an extensive evaluation. He was found to have a low blood pressure of 93/74 on admission but his vital signs were otherwise stable. Initial laboratory analysis showed white blood cell count of 19.9, hemoglobin 8, lactic acid 5.1, potassium 5.5, CO2 19, and creatinine 2.59. UA showed possible infection is currently undergoing treatment. Head CT showed a suprasellar mass but no signs of hydrocephalus. Chest x-ray was unremarkable. Patient remained hypotensive despite IV fluid administration and subsequently a right IJ central line was placed. Patient was started on norepinephrine and has subsequently been admitted to the ICU. His IV fluids were then transitioned to D5 with bicarbonate secondary to underlying anion gap metabolic acidosis and hypoglycemia. He was maintained on Zosyn. His lactic acid level improved. He was noted to have ulcers over both great toes as well as a stage II coccyx ulcer. Dr. Mccarty was consulted. He was started on Bactroban. On the morning of 01/17 he remained on IV vasopressors. He did have a drop in his hemoglobin and received 1 unit of packed red blood cells. His fecal occult blood was negative. Blood and urine cultures remain negative. Nephrology was actively following the patient. He completed a seven-day course of Zosyn on 01/21. He was placed on oral sodium bicarb due to his acidosis. He continued to have poor oral intake, which improved with stopping glucose containing IV He was determined stable for discharge to SNF. He did have low potassium, phos, and magnesium which were aggressively replaced. He was eating better and more active. He was determined stable for discharge to ECF. Recommend repeat BMP, Mg, Phos in 3 days. Patient seen and examined at bedside. Deneis pain, sob, chest pain, or nausea. Ate breakfast well today. Vital signs reviewed and stable. General: non toxic, no distress, appears at stated age Derm: b/l ulcers on great toes, warm, dry Head: atraumatic, normocephalic, symmetric Eyes: EOMI, no lid lag, anicteric sclera Mouth: no lip lesion, mucus membranes dry Cardiovascular: S1S2 reg, no murmur, positive posterior tibial pulse bilateral, Lungs: decreased bs bilateral, no rhonchi, no rales , no accessory muscle use Abdominal: soft, nontender to palpation, no guarding, no appreciable organomegaly Ext: no gross muscle atrophy, no edema, no contractures Neuro: CN II-XI grossly intact, no focal neuro deficits Psych: awake confused, flat affect A total of 35 minutes of time were spent preparing this complex discharge summary . Pertinent Studies: echo- ejection fraction 60-65%, no significant valvular disease abdominal/bladder ultrasound-no hydronephrosis CT brain-large elongated mass in the left suprasellar region Patient Condition at Discharge: Serious Plan - Discharge Summary New Discharge Prescriptions: New Bacitracin Oint 1 applic TOPICAL BID applic Sod Phos Di, Panola/K Phos Panola [K-Phos Neutral Tablet] 250 mg PO DAILY #30 tablet Cephalexin [Keflex] 500 mg PO TID #21 cap Magnesium Oxide [Mag-Ox] 400 mg PO BID tab Sodium Bicarbonate Tab 650 mg PO DAILY tab Lisinopril [Zestril] 5 mg PO DAILY tab sitaGLIPtin [Januvia] 100 mg PO DAILY #30 tab Continue QUEtiapine [SEROquel] 25 mg PO HS Pro-Stat Awc Liquid 30 ml PO BID Pantoprazole Sodium [Protonix] 40 mg PO DAILY Tamsulosin [Flomax] 0.4 mg PO HS Atorvastatin [Lipitor] 40 mg PO HS Acetaminophen Tab [Tylenol] 650 mg PO Q6H PRN PRN Reason: Pain Magnesium Hydroxide [Milk of Magnesia] 2,400 mg PO HS PRN PRN Reason: Constipation Discontinued glipiZIDE [Glucotrol] 2.5 mg PO DAILY Lisinopril 20 mg PO DAILY amLODIPine [Norvasc] 5 mg PO DAILY Discharge Medication List Acetaminophen Tab [Tylenol] 650 mg PO Q6H PRN 01/15/19 [History] Atorvastatin [Lipitor] 40 mg PO HS 01/15/19 [History] Magnesium Hydroxide [Milk of Magnesia] 2,400 mg PO HS PRN 01/15/19 [History] Pantoprazole Sodium [Protonix] 40 mg PO DAILY 01/15/19 [History] Pro-Stat Awc Liquid 30 ml PO BID 01/15/19 [History] QUEtiapine [SEROquel] 25 mg PO HS 01/15/19 [History] Tamsulosin [Flomax] 0.4 mg PO HS 01/15/19 [History] Bacitracin Oint 1 applic TOPICAL BID applic 01/23/19 [Rx] Cephalexin [Keflex] 500 mg PO TID #21 cap 01/23/19 [Rx] Lisinopril [Zestril] 5 mg PO DAILY tab 01/23/19 [Rx] Magnesium Oxide [Mag-Ox] 400 mg PO BID tab 01/23/19 [Rx] Sod Phos Di, Panola/K Phos Panola [K-Phos Neutral Tablet] 250 mg PO DAILY #30 tablet 01/23/19 [Rx] Sodium Bicarbonate Tab 650 mg PO DAILY tab 01/23/19 [Rx] sitaGLIPtin [Januvia] 100 mg PO DAILY #30 tab 01/23/19 [Rx] Follow up Appointment(s)/Referral(s): Haim Bellamy MD [Primary Care Provider] - 1-2 days Activity/Diet/Wound Care/Special Instructions: Blood sugars every AM. Frequent turns
[2019-01-23] MEDS: POTASSIUM PHOSPHATE 10 MMOL in SODIUM CHLORIDE 0.9% 250 ML IV SCH ×2 (13:09→15:42)
[2019-01-23 14:31] VITALS: BP 114/71; PULSE 80; RESP 20; TEMP 98.7
[2019-01-23 17:12] LABS: Glucose,Whole Blood 104 mg/dL (75-99)
== END 2019-01-23 17:52 | DRG 871 ==
LOC: SUPCPDRO 16:34 → EC 16:34 → EEVIPCON 16:34 → 2SICU 22:02 → 4MS4W 01-18 23:25
PROVIDERS: ADMIT Family Medicine; ATTEND Family Medicine
PROC: 02HV33Z Insertion of Infusion Device into Superior Vena Cava, Percutaneous Approach (ICD-10-PCS; principal; 2019-01-15)
PROC: 30233N1 Transfusion of Nonautologous Red Blood Cells into Peripheral Vein, Percutaneous Approach (ICD-10-PCS; 2019-01-17)
DX: A41.50 Gram-negative sepsis, unspecified (principal); R65.21 Severe sepsis with septic shock; G92 Toxic encephalopathy; N39.0 Urinary tract infection, site not specified; N17.9 Acute kidney failure, unspecified; D62 Acute posthemorrhagic anemia; E87.2 Acidosis; G91.9 Hydrocephalus, unspecified; D32.9 Benign neoplasm of meninges, unspecified; D63.8 Anemia in other chronic diseases classified elsewhere; E11.649 Type 2 diabetes mellitus with hypoglycemia without coma; E11.65 Type 2 diabetes mellitus with hyperglycemia; E78.5 Hyperlipidemia, unspecified; E83.39 Other disorders of phosphorus metabolism; E83.42 Hypomagnesemia; E86.0 Dehydration; E87.5 Hyperkalemia; E87.6 Hypokalemia; F03.90 Unspecified dementia, unspecified severity, without behavioral disturbance, psychotic disturbance, mood disturbance, and anxiety; I10 Essential (primary) hypertension; K59.00 Constipation, unspecified; R13.10 Dysphagia, unspecified; L89.152 Pressure ulcer of sacral region, stage 2; L89.892 Pressure ulcer of other site, stage 2; Z79.84 Long term (current) use of oral hypoglycemic drugs; Z79.899 Other long term (current) drug therapy; Z87.440 Personal history of urinary (tract) infections; Z87.891 Personal history of nicotine dependence; M19.90 Unspecified osteoarthritis, unspecified site; F41.9 Anxiety disorder, unspecified; B35.1 Tinea unguium; F22 Delusional disorders
CPT/HCPCS: 36415; 36556; 70450; 71045; 71046; 76770; 80048; 80053; 80202; 81001; 82272; 82728; 83540; 83550; 83605; 83735; 84100; 84132; 84484; 85025; 85027; 85610; 85730; 86850; 86900; 86901; 86920; 87040; 87070; 87075; 87077; 87086; 87186; 87205; 93005; 93306; 96361; 96365; 96366; 96368; 99291